=== PATIENT | male | born 1950 | race Caucasian/White ===

== ENCOUNTER 2016-10-21 10:36 | Inpatient (IN) | payer MEDICARE, OTHER ==
[~2016-10-21] VITALS: Ht 188 cm; Wt 151.9 kg
[2016-10-21 10:43] VITALS: BP 183/81; PULSE 88; RESP 16; TEMP 99.5; O2SAT 94
[2016-10-21] MEDS ORDERED: LISI10TA3 PO (11:11)
[2016-10-21] MEDS ORDERED: LOVA20TA PO (11:11)
[2016-10-21] MEDS ORDERED: OCUVTAB PO (11:11)
[2016-10-21] MEDS ORDERED: MUPI2%T TOPICAL (11:11)
[2016-10-21] MEDS ORDERED: METF500T PO (11:11)
[2016-10-21] MEDS ORDERED: CLIN1CAP6 PO (11:11)
[2016-10-21] MEDS ORDERED: ASPI81CH37 CHEW (11:11)
[2016-10-21] MEDS ORDERED: NATE120T PO (11:11)
[2016-10-21] MEDS ORDERED: MULT-65 PO (11:11)
--- NOTE | 2016-10-21 11:35 | PD ---
HPI Chief Complaint: Skin Problem Time Seen by Provider: 11:09 Travel History International Travel<30 days: No Contact w/Intl Traveler<30days: No Traveled to known affect area: No History of Present Illness HPI This is a 66 year old male who presents to the emergency department with a foot ulcer that he thinks has been present between 2-3 weeks. He doesn't feel anything because he has diabetic neuropathy but is concerned because his foot has gotten more swollen and red. He went to an urgent care four days ago and was started on clindamycin and mupirocin ointment which he has been taking. He denies fevers or chills. He doesn't have a fluid designer and doesn't check his blood sugar. PFSH Past Medical History Hx Anticoagulant Therapy: Yes (ASPIRIN 81 MG DAILY) Diabetes: Yes (Type 2) Patient Takes Glucophage: Yes Hypertension: Yes Tetanus Vaccination: > 5 Years Influenza Vaccination: No Past Surgical History Surgical History: No Previous Surgery Social History Alcohol Use: Yes (Rarely) Tobacco Use: No Substance Use: No Allergies-Medications (Allergen,Severity, Reaction): Coded Allergies: No Known Allergies (Unverified , 10/21/16) Reported Meds & Prescriptions Reported Meds & Active Scripts Active Reported Clindamycin (Clindamycin HCl) 300 Mg Cap 300 Mg PO TID Bactroban Topical (Mupirocin) 22 Gm Cream 1 Applic TOPICAL TID Metformin (Metformin HCl) 500 Mg Tab 500 Mg PO BIDPC With meals Lovastatin 20 Mg Tab 20 Mg PO DAILY Nateglinide 120 Mg Tab 120 Mg PO BID Lisinopril 10 Mg Tab 10 Mg PO DAILY Ocuvite (Multiple Vitamins W/ Minerals) 1 Tab 1 Tab PO DAILY Multi-Vitamin Daily (Multiple Vitamin) 1 Tab Tab 1 Tab PO DAILY Aspirin Low Dose (Aspirin) 81 Mg Chew 81 Mg CHEW DAILY Review of Systems Except as stated in HPI: all other systems reviewed are Neg Physical Exam Narrative GENERAL:Well appearing, no acute distress SKIN: 4 cm ulcer on the lateral aspect of the plantar surface of the right foot with necrotic tissue and some boggy areas suggestive of an underlying fluid collection. HEAD: Atraumatic. Normocephalic. EYES: Pupils equal and round. No injection or drainage. ENT: Moist mucous membranes NECK: Trachea midline. CARDIOVASCULAR: Regular rate and rhythm. No murmur appreciated. RESPIRATORY: Clear to auscultation. Breath sounds equal bilaterally. GASTROINTESTINAL: Abdomen soft, non-tender, nondistended. MUSCULOSKELETAL: No obvious deformities. NEUROLOGICAL: Awake and alert. No obvious cranial nerve deficits. Moving all extremities. PSYCHIATRIC: Appropriate mood and affect; insight and judgment normal. Data Data Last Documented VS Vital Signs Date Time Temp Pulse Resp B/P (MAP) Pulse Ox O2 Delivery O2 Flow Rate FiO2 10/21/16 12:15 77 16 138/62 (87) 94 Room Air 10/21/16 10:43 99.5 Orders Orders Complete Blood Count With Diff (10/21/16 11:17) Comprehensive Metabolic Panel (10/21/16 11:17) Westergren Sedimentation Rate (10/21/16 11:17) C-Reactive Protein (Crp) (10/21/16 11:17) Foot, Complete ([id number]) (10/21/16 ) Labs Laboratory Tests Test 10/21/16 11:45 White Blood Count 14.3 TH/MM3 Red Blood Count 4.30 MIL/MM3 Hemoglobin 12.7 GM/DL Hematocrit 38.5 % Mean Corpuscular Volume 89.4 FL Mean Corpuscular Hemoglobin 29.5 PG Mean Corpuscular Hemoglobin Concent 33.0 % Red Cell Distribution Width 13.0 % Platelet Count 329 TH/MM3 Mean Platelet Volume 7.3 FL Neutrophils (%) (Auto) 82.9 % Lymphocytes (%) (Auto) 8.9 % Monocytes (%) (Auto) 5.1 % Eosinophils (%) (Auto) 0.9 % Basophils (%) (Auto) 2.2 % Neutrophils # (Auto) 11.9 TH/MM3 Lymphocytes # (Auto) 1.3 TH/MM3 Monocytes # (Auto) 0.7 TH/MM3 Eosinophils # (Auto) 0.1 TH/MM3 Basophils # (Auto) 0.3 TH/MM3 CBC Comment DIFF FINAL Differential Comment Erythrocyte Sedimentation Rate 81 mm/hr Blood Urea Nitrogen 24 MG/DL Creatinine 1.30 MG/DL Random Glucose 112 MG/DL Total Protein 7.5 GM/DL Albumin 2.7 GM/DL Calcium Level 8.4 MG/DL Alkaline Phosphatase 87 U/L Aspartate Amino Transf (AST/SGOT) 12 U/L Alanine Aminotransferase (ALT/SGPT) 20 U/L Total Bilirubin 1.6 MG/DL Sodium Level 139 MEQ/L Potassium Level 4.0 MEQ/L Chloride Level 105 MEQ/L Carbon Dioxide Level 25.5 MEQ/L Anion Gap 9 MEQ/L Estimat Glomerular Filtration Rate 55 ML/MIN MDM Medical Decision Making Medical Screen Exam Complete: Yes Emergency Medical Condition: Yes Interpretation(s) temperature 99.5 leukocytosis 83% neutrophils sed rate 81 Last 24 hours Impressions Foot X-Ray 10/21/16 0000 Signed Impressions: Service Date/Time: Friday, October 21, 2016 11:27 - CONCLUSION: 1. Soft tissue swelling. 2. Degenerative changes. No acute fracture or cortical irregularity to suggest osteomyelitis Shawn Pariknson MD Differential Diagnosis Diabetic foot ulcer, sepsis, cellulitis, osteomyelitis Narrative Course This is a 66-year-old male who presents to the emergency department with redness and swelling of his right foot associated with a diabetic foot ulcer. On exam he has a large ulcer that is boggy suggestive of an underlying fluid collection and overlying necrosis. Patient requires podiatry evaluation and he' ll be given IV antibiotics for wound infection versus underlying osteomyelitis. Diagnosis Primary Impression: Diabetic foot infection Admitting Information Admitting Physician Requests: Admit Gabby Hoang MD Oct 21, 2016 11:35
[2016-10-21 11:59] LABS: AUTOMATED NEUTROPHIL # 11.9 TH/MM3 (1.8-7.7); BASOPHIL # 0.3 TH/MM3 (0-0.2); BASOPHIL % 2.2 % (0.0-2.0); EOSINOPHIL # 0.1 TH/MM3 (0-0.4); EOSINOPHIL % 0.9 % (0.0-4.0); HEMATOCRIT 38.5 % (39.0-51.0); LYMPH % 8.9 % (9.0-44.0); LYMPHOCYTE # 1.3 TH/MM3 (1.0-4.8); MEAN CELL VOLUME 89.4 FL (80.0-100.0); MEAN CORPUSCULAR HEMOGLOBIN 29.5 PG (27.0-34.0); MONO % 5.1 % (0.0-8.0); NEUT % 82.9 % (16.0-70.0); PLATELET COUNT 329 TH/MM3 (150-450); WHITE BLOOD COUNT 14.3 TH/MM3 (4.0-11.0)
[2016-10-21 12:03] LABS: CHLORIDE 105 MEQ/L (98-107); SODIUM (NA) 139 MEQ/L (136-145)
--- NOTE | 2016-10-21 12:04 | RADRPT ---
EXAM DATE/TIME: 10/21/2016 11:27 [facility] COMPARISON: No previous studies available for comparison. INDICATIONS : Right foot redness and swelling with wounds. MEDICAL HISTORY : Diabetes mellitus type II. SURGICAL HISTORY : None. ENCOUNTER: Initial ACUITY: 1 week PAIN SCORE: 8/10 LOCATION: Right plantar foot FINDINGS: Three view examination of the right foot demonstrates mild, diffuse soft tissue swelling without disl ocation, or fracture. A prominent accessory ossification adjacent to the cuboid and a small accessory ossification adjacent to the lateral malleolus. Dorsal spurring in the region of the cuneiform. CONCLUSION: 1. Soft tissue swelling. 2. Degenerative changes. No acute fracture or cortical irregularity to suggest osteomyelitis Shawn Parkinson MD on October 21, 2016 at 11:58 Board Certified Radiologist. This report was verified electronically.
[2016-10-21 12:06] LABS: HEMO FLAGS DIFF FINAL
[2016-10-21 12:07] LABS: ANION GAP 9 MEQ/L (5-15); BICARBONATE 25.5 MEQ/L (21.0-32.0); BLOOD UREA NITROGEN 24 MG/DL (7-18)
[2016-10-21 12:10] LABS: ALT (GPT) 20 U/L (12-78); AST (GOT) 12 U/L (15-37); GLOMERULAR FILTRATION RATE 55 ML/MIN (>89)
[2016-10-21 12:11] LABS: TOTAL BILIRUBIN ADULT 1.6 MG/DL (0.2-1.0)
[2016-10-21 12:13] LABS: ALKALINE PHOSPHATASE 87 U/L (45-117)
[2016-10-21 12:15] VITALS: BP 138/62; PULSE 77; RESP 16; O2SAT 94
[2016-10-21] MEDS ORDERED: Vancomycin Consult Pharmacy 1 EA OTHER SCH (12:45)
[2016-10-21] MEDS ORDERED: SENNOSIDES 8.6 MG TAB PO PRN (12:45)
[2016-10-21] MEDS ORDERED: ONDANSETRON HCL 4 MG/2 ML VIAL IVP PRN (12:45)
[2016-10-21] MEDS ORDERED: MAGNESIUM HYDROXIDE SUSP 30 ML CUP PO PRN (12:45)
[2016-10-21] MEDS ORDERED: NALOXONE HCL 0.4 MG/ML AMP IV PRN (12:45)
[2016-10-21] MEDS ORDERED: GLUCAGON 1 MG/ML VIAL OTHER PRN (12:45)
[2016-10-21] MEDS ORDERED: SODIUM CHLORIDE 0.9% FLUSH 10 ML FLUSH IV FLUSH PRN (12:45)
[2016-10-21] MEDS ORDERED: BISACODYL 10 MG SUPP RECTAL PRN (12:45)
[2016-10-21] MEDS ORDERED: VANCOMYCIN INJ 1,750 MG in SODIUM CHLORID 0.9% 500 ML INJ 500 ML IV ONE (12:45)
[2016-10-21] MEDS ORDERED: DEXTROSE 50% IN WATER 50 ML VIAL(D50) IV PRN (12:45)
[2016-10-21] MEDS ORDERED: LACTULOSE SYRUP 20 GM/30 ML CUP PO PRN (12:45)
--- NOTE | 2016-10-21 14:59 | HHI.HP ---
[facility] Service [facility] Primary Care Physician Golden Drake MD Admission Diagnosis diabetic foot infection Diagnoses: Travel History International Travel<30 Days: No Contact w/Intl Traveler <30 Da: No Traveled to Known Affected Are: No History of Present Illness Mr. Mahmood is a 66-year-old male. He reports after mowing his yard in the past week he noticed he developed a right lateral foot wound. He says he never noticed any blood but he did notice discharge. He became concerned Wednesday when the foot developed redness and he went to an outpatient clinic. They gave him a topical antibiotic ointment as well as clindamycin. Despite these treatments his foot worsened this morning and he visited another urgent care and at that time they recommended he come to the hospital. She denies any fevers, chills, or odor. She does not regularly follow with an outpatient civilian technician but he does have diabetic neuropathy. He has had problems with ulcerations of his lower distal extremities in the past. A white blood cell count is present. Sepsis criteria are not present. X-ray shows soft tissue swelling without evidence of osteo-myelitis. Review of Systems Constitutional: DENIES: Diaphoretic episodes, Fatigue, Fever, Chills, Change in appetite, Night Sweats Endocrine: DENIES: Heat/cold intolerance Eyes: DENIES: Blurred vision, Diplopia, Eye pain Ears, nose, mouth, throat: DENIES: Tinnitus, Hearing loss, Vertigo Respiratory: DENIES: Apneas, Cough, Snoring Cardiovascular: DENIES: Chest pain, Palpitations, Syncope Gastrointestinal: DENIES: Abdominal pain, Black stools, Bloody stools Musculoskeletal: DENIES: Joint pain, Muscle aches, Stiffness Integumentary: COMPLAINS OF: Abnormal pigmentation Hematologic/lymphatic: DENIES: Bruising Immunologic/allergic: DENIES: Eczema Neurologic: DENIES: Abnormal gait Psychiatric: DENIES: Anxiety, Confusion, Mood changes Past Family Social History Past Medical History Diabetes mellitus type 2 Diabetic neuropathy Hypertension Past Surgical History None reported by the patient Reported Medications Reported Meds & Active Scripts Active Reported Clindamycin (Clindamycin HCl) 300 Mg Cap 300 Mg PO TID Bactroban Topical (Mupirocin) 22 Gm Cream 1 Applic TOPICAL TID Metformin (Metformin HCl) 500 Mg Tab 500 Mg PO BIDPC With meals Lovastatin 20 Mg Tab 20 Mg PO DAILY Nateglinide 120 Mg Tab 120 Mg PO BID Lisinopril 10 Mg Tab 10 Mg PO DAILY Ocuvite (Multiple Vitamins W/ Minerals) 1 Tab 1 Tab PO DAILY Multi-Vitamin Daily (Multiple Vitamin) 1 Tab Tab 1 Tab PO DAILY Aspirin Low Dose (Aspirin) 81 Mg Chew 81 Mg CHEW DAILY Allergies: Coded Allergies: No Known Allergies (Unverified , 10/21/16) Active Ordered Medications Administered Medications Medications (Trade) Dose Ordered Sig/Saeed Route PRN Reason Start Time Stop Time Status Last Admin Dose Admin Vancomycin HCl 1750 mg/Sodium Chloride 517.5 ml @ 258.75 mls/ hr ONCE ONCE IV 10/21/16 12:45 10/21/16 14:44 10/21/16 13:38 Family History COPD in mother Rheumatoid arthritis in father Social History No tobacco use Occasional Alcohol use No drug abuse Physical Exam Vital Signs Vital Signs Date Time Temp Pulse Resp B/P (MAP) Pulse Ox O2 Delivery O2 Flow Rate FiO2 10/21/16 12:15 77 16 138/62 (87) 94 Room Air 10/21/16 10:43 99.5 88 16 183/81 (115) 94 Physical Exam GENERAL: NAD, A&Ox3 HEAD: Normocephalic. NECK: Supple, trachea midline. No lymphadenopathy. EYES: No scleral icterus. No injection or drainage. CARDIOVASCULAR: Regular rate and rhythm without murmurs, gallops, or rubs. RESPIRATORY: Breath sounds equal bilaterally. No accessory muscle use. GASTROINTESTINAL: Abdomen soft, non-tender, nondistended. MUSCULOSKELETAL: No cyanosis, or edema. SKIN: Warm and dry. Plantar surface of right lateral foot has a 1 cm x 4 cm dry wound. Depth cannot be determined, but visible aspect is superficial. There appears to be a peripheral collapsed blister, dried. Dorsal surface of foot has diffuse erythema and induration. NEURO: No focal neurological deficitis. Laboratory Laboratory Tests Test 10/21/16 11:45 10/21/16 13:10 White Blood Count 14.3 Red Blood Count 4.30 Hemoglobin 12.7 Hematocrit 38.5 Mean Corpuscular Volume 89.4 Mean Corpuscular Hemoglobin 29.5 Mean Corpuscular Hemoglobin Concent 33.0 Red Cell Distribution Width 13.0 Platelet Count 329 Mean Platelet Volume 7.3 Neutrophils (%) (Auto) 82.9 Lymphocytes (%) (Auto) 8.9 Monocytes (%) (Auto) 5.1 Eosinophils (%) (Auto) 0.9 Basophils (%) (Auto) 2.2 Neutrophils # (Auto) 11.9 Lymphocytes # (Auto) 1.3 Monocytes # (Auto) 0.7 Eosinophils # (Auto) 0.1 Basophils # (Auto) 0.3 CBC Comment DIFF FINAL Differential Comment Erythrocyte Sedimentation Rate 81 Blood Urea Nitrogen 24 Creatinine 1.30 Random Glucose 112 Total Protein 7.5 Albumin 2.7 Calcium Level 8.4 Alkaline Phosphatase 87 Aspartate Amino Transf (AST/SGOT) 12 Alanine Aminotransferase (ALT/SGPT) 20 Total Bilirubin 1.6 Sodium Level 139 Potassium Level 4.0 Chloride Level 105 Carbon Dioxide Level 25.5 Anion Gap 9 Estimat Glomerular Filtration Rate 55 C-Reactive Protein 17.00 Lactic Acid Level 1.0 Date/Time Source Procedure Growth Status 10/21/16 13:10 Blood Peripheral Aerobic Blood Culture Pending Received 10/21/16 13:10 Blood Peripheral Anaerobic Blood Culture Pending Received 10/21/16 13:40 Abscess Foot Gram Stain Pending Received 10/21/16 13:40 Abscess Foot Wound Culture Pending Received Result Diagram: 10/21/16 1145 10/21/16 1145 Imaging Last Impressions Foot X-Ray 10/21/16 0000 Signed Impressions: Service Date/Time: Friday, October 21, 2016 11:27 - CONCLUSION: 1. Soft tissue swelling. 2. Degenerative changes. No acute fracture or cortical irregularity to suggest osteomyelitis MD Mehreen Stone VTE Risk Assessment Caprini VTE Risk Assessment: Mod/High Risk (score >= 2) Caprini Risk Assessment Model Point Value = 1 Point Value = 2 Point Value = 3 Point Value = 5 Age 41-60 Minor surgery BMI > 25 kg/m2 Swollen legs Varicose veins or History of unexplained or recurrent spontaneous Oral contraceptives or hormone replacement Sepsis (< 1 month) Serious lung disease, including pneumonia (< 1 month) Abnormal pulmonary function Acute myocardial infarction Congestive heart failure (< 1 month) History of inflammatory bowel disease Medical patient at bed rest Age 61-74 Arthroscopic surgery Major open surgery (> 45 min) Laparoscopic surgery (> 45 min) Malignancy Confined to bed (> 72 hours) Immobilizing plaster cast Central venous access Age >= 75 History of VTE Family history of VTE Factor V Leiden Prothrombin [id number] Lupus anticoagulant Anticardiolipin antibodies Elevated serum homocysteine Heparin-induced thrombocytopenia Other congenital or acquired thrombophilia Stroke (< 1 month) Elective arthroplasty Hip, pelvis, or leg fracture Acute spinal cord injury (< 1 month) Prophylaxis Regimen Total Risk Factor Score Risk Level Prophylaxis Regimen 0-1 Low Early ambulation 2 Moderate Order ONE of the following: *Sequential Compression Device (SCD) *Heparin 5000 units SQ BID 3-4 Higher Order ONE of the following medications: *Heparin 5000 units SQ TID *Enoxaparin/Lovenox 40 mg SQ daily (WT < 150 kg, CrCl > 30 mL/min) *Enoxaparin/Lovenox 30 mg SQ daily (WT < 150 kg, CrCl > 10-29 mL/min) *Enoxaparin/Lovenox 30 mg SQ BID (WT < 150 kg, CrCl > 30 mL/min) AND/OR *Sequential Compression Device (SCD) 5 or more Highest Order ONE of the following medications: *Heparin 5000 units SQ TID (Preferred with Epidurals) *Enoxaparin/Lovenox 40 mg SQ daily (WT < 150 kg, CrCl > 30 mL/min) *Enoxaparin/Lovenox 30 mg SQ daily (WT < 150 kg, CrCl > 10-29 mL/min) *Enoxaparin/Lovenox 30 mg SQ BID (WT < 150 kg, CrCl > 30 mL/min) AND *Sequential Compression Device (SCD) Assessment and Plan Problem List: (1) Cellulitis ICD Code: L03.90 - Cellulitis, unspecified (2) Diabetic neuropathy ICD Code: E11.40 - Type 2 diabetes mellitus with diabetic neuropathy, unspecified (3) HTN (hypertension) ICD Code: I10 - Essential (primary) hypertension (4) Diabetes type 2, controlled ICD Code: E11.9 - Type 2 diabetes mellitus without complications (5) Diabetic foot infection ICD Code: E11.69 - Type 2 diabetes mellitus with other specified complication; L08.9 - Local infection of the skin and subcutaneous tissue, unspecified Status: Acute Assessment and Plan Assessment and Plan 66 year old male, presenting with worsening cellulitis or the right foot, on antibiotics. Right Foot Cellulitis Right Foot Wound (lateral plantar surface) Vancomycin Zosyn Probiotic Podiatry consult MRI of foot to screen for abscess or osteomyelitis DM2 Diabetic Neuropathy Good control at baseline per patient Follow blood sugars Insulin Sliding Scale Diabetic Diet Diabetic Neuropathy Contributory Follow clinically Interval outpatient podiatry visits recommended HTN Continue baseline treatments Follow BP Adjust if needed DVT Prophylaxis Lovenox Physician Certification 2 Midnight Certification Type: Admission for Inpatient Services Order for Inpatient Services The services are ordered in accordance with Medicare regulations or non- Medicare payer requirements, as applicable. In the case of services not specified as inpatient-only, they are appropriately provided as inpatient services in accordance with the 2-midnight benchmark. Estimated LOS (days): 2 days is the estimated time the patient will need to remain in the hospital, assuming treatment plan goals are met and no additional complications. Post-Hospital Plan: Home Manjit Herrera MD Oct 21, 2016 14:59
[2016-10-21 16:00] VITALS: BP 161/81; PULSE 77; RESP 19; TEMP 97.2; O2SAT 99
[2016-10-21] MEDS: INSULIN ASPART SUPPLEMENTAL SCALE SQ SCH ×2 (16:00→20:31)
[2016-10-21] MEDS ORDERED: GADODIAMIDE PF 287 MG/ML 10 ML VIAL (for RAD MRI) IV PUSH ONE (16:16)
--- NOTE | 2016-10-21 17:06 | RADRPT ---
EXAM DATE/TIME: 10/21/2016 15:51 [facility] COMPARISON: FOOT RIGHT COMPLETE ([id number]), October 21, 2016, 11:27. INDICATIONS : Abscess. Wound lateral rt foot near 5th digit. CONTRAST: 30 cc Omniscan (gadodiamide) IV MEDICAL HISTORY : Hypertension. Diabetes mellitus type 2. SURGICAL HISTORY : Tonsillectomy. Inguinal hernia repair. ENCOUNTER: Initial ACUITY: 4-6 days PAIN SCORE: 3/10 LOCATION: Right Foot TECHNIQUE: Multiplanar, multisequence MRI examination was performed without contrast and after the intravenous a dministration of gadolinium. FINDINGS: There is soft tissue swelling about the 5th digit extending to the distal 5th metatarsus and into the web space between the 4th and 5th digits. On T2 weighted images, there is only mild T2 prolongation . On the postcontrast images, there is absent enhancement in the area of soft tissue thickening sugg esting that this area is not vascularized. There is an approximate zone of transition between the en hancing and nonenhancing soft tissues. There is also non-enhancement in the web space between the 4t h and 5th digits and about the plantar aspect of the base of the 4th digit. No focal fluid collectio ns seen. There is T2 prolongation in the marrow of the distal 5th metatarsus. There is mild soft tissue thickening about the dorsal aspect of the midfoot with diffuse mild enhance ment suggesting cellulitis. CONCLUSION: Abnormal appearance to the 5th digit and surrounding soft tissues with absence of contrast enhancemen t with sharp demarcation suggesting that this there is devascularized. Robby Ceron MD on October 21, 2016 at 16:51 Board Certified Radiologist. This report was verified electronically.
[2016-10-21] MEDS: PIPERACIL-TAZO 3.375 GM PREMIX 50 ML IV SCH ×2 (17:45→22:39)
[2016-10-21] MEDS: ENOXAPARIN SODIUM 40 MG/0.4 ML SYRINGE SQ SCH ×2 (17:46→17:49)
[2016-10-21 20:00] VITALS: BP 151/83; PULSE 74; RESP 20; TEMP 99.4; O2SAT 97
--- NOTE | 2016-10-21 20:43 | MB ---
cc: YESSENIA EWING DPM DATE OF CONSULTATION 10/21/16 REASON FOR CONSULTATION Right diabetic foot ulcer infection. HISTORY OF PRESENT ILLNESS This is a 66-year-old male who approximately 1 week ago developed a wound on his right foot. He slide across a lj and hit his foot on concrete. He knows that there was no bleeding. He developed increased redness and some drainage and presented to an outpatient clinic. There is noted to be increase of signs of infection. Recommended admitting to the hospital. Currently, the patient is seen bedside. He has admitted since being in the hospital he has had significant reduction and discoloration of the foot. He normally is quite compliant and he tries his best to control his blood sugars and not walk barefoot. He is aware that he does have neuropathy and does not follow with a medical administrator routinely. PAST MEDICAL HISTORY Diabetes type 2, diabetic neuropathy, hypertension. No surgical note history in the chart. MEDICATIONS Reported inpatient medications reviewed. Outpatient medications 1. Metformin. 2. Bactroban. 3. Clindamycin. 4. Lisinopril. 5. Lovastatin. Inpatient medications reviewed. He is receiving antibiotics, Vancomycin and Zosyn. ALLERGIES None listed. PHYSICAL EXAMINATION VITAL SIGNS: Temperature 97.2, pulse rate 77, respiratory rate 19, blood pressure 161/87. He is satting 94% on room air. GENERAL: This is an alert and oriented gentleman seen bedside exhibiting nonlabored respirations. He is verbal, appropriate. DIRECTED EXAMINATION: Bilateral lower extremities examined. Right lower extremity there is noted to be a necrotic ulcer at the plantar aspect of the fifth MPJ. There is redness. There is serous type drainage. Upon debridement of the area there is noted to be a full-thickness like hematoma presentation with minimal bleeding. There is a mild odor. No obvious gas within the tissue. There is noted to be a collapsed blister type formation circumferentially of the patient's fifth digit with early signs of ischemia. The toe appears to be warm but it is more purple reddish in hue. The patient does have hammertoe digits 2, 3, 4, and 5. Pedal pulses are palpable. Sensation decreased to light touch. There is noted to be redness that extends to the dorsum of the foot. There is no tracking along the plantar arch. LABORATORY FINDINGS White blood cells 14.3, hemoglobin/hematocrit 12, 38, platelet count 329, ESR 81. Chem-7, sodium is 139, potassium 4.0, chloride 105, CO2 25.5, BUN is 24. IMAGING STUDIES X-ray appears to correlate more with arthritis of the midfoot with no mention of bony erosive process of the level of the fourth, fifth metatarsal heads. I reviewed the MRIs with the on-call radiologist and there appears to be evidence of a possible ischemic digit fifth with enhancement of the forefoot metatarsal heads that could correlate with bone infectio. Bone scan was recommended for increased specificity for bone uptake and abnormality. ASSESSMENT/PLAN Right diabetic foot ulcer cellulitis, possible early gangrene of the fifth digit. Bedside debridement performed after Betadine prep. There is minimal bleeding. A Betadine wet-to-dry bandage was applied. I explained to the patient the possibility of fifth digit amputation with metatarsal head resection if the bone scan comes back positive. At this time the patient should continue IV antibiotics. Dr. Dalal will assume care within the next day or two and likely be the surgeon of record if surgery needs to be performed. MARY Rosas /5:16 PM /8:27 PM
[2016-10-21] MEDS: DOCUSATE SODIUM 50 MG/SENNA 8.6 MG TAB PO SCH (21:00)
[2016-10-21] MEDS: SODIUM CHLORIDE 0.9% FLUSH 10 ML FLUSH IV FLUSH SCH (22:39)
[2016-10-21] MEDS: VANCOMYCIN INJ 2,500 MG in SODIUM CHLORID 0.9% 500 ML INJ 500 ML IV SCH (23:48)
[2016-10-22] VITALS: BP 148/73; PULSE 71; RESP 20; TEMP 99.4; O2SAT 93
[2016-10-22] MEDS: PIPERACIL-TAZO 3.375 GM PREMIX 50 ML IV SCH ×4 (04:09→23:20)
[2016-10-22 06:06] LABS: AUTOMATED NEUTROPHIL # 10.2 TH/MM3 (1.8-7.7); BASOPHIL # 0.1 TH/MM3 (0-0.2); BASOPHIL % 0.6 % (0.0-2.0); EOSINOPHIL # 0.4 TH/MM3 (0-0.4); EOSINOPHIL % 3.1 % (0.0-4.0); HEMO FLAGS DIFF FINAL; LYMPH % 12.1 % (9.0-44.0); LYMPHOCYTE # 1.6 TH/MM3 (1.0-4.8); MEAN CELL VOLUME 90.9 FL (80.0-100.0); MEAN CORPUSCULAR HEMOGLOBIN 30.3 PG (27.0-34.0); MEAN CORPUSCULAR HGB CONC 33.4 % (32.0-36.0); MONO % 6.5 % (0.0-8.0); NEUT % 77.7 % (16.0-70.0); PLATELET COUNT 280 TH/MM3 (150-450); RED BLOOD COUNT 3.85 MIL/MM3 (4.50-5.90); RED CELL DISTRIBUTION WIDTH 13.1 % (11.6-17.2); WHITE BLOOD COUNT 13.2 TH/MM3 (4.0-11.0)
[2016-10-22 06:19] LABS: BICARBONATE 26.1 MEQ/L (21.0-32.0)
[2016-10-22] MEDS: INSULIN ASPART SUPPLEMENTAL SCALE SQ SCH ×4 (06:27→21:00)
[2016-10-22 08:00] VITALS: BP 176/86; PULSE 81; RESP 20; TEMP 98.2; O2SAT 95
[2016-10-22] MEDS: SODIUM CHLORIDE 0.9% FLUSH 10 ML FLUSH IV FLUSH SCH ×2 (08:39→21:00)
[2016-10-22] MEDS: DOCUSATE SODIUM 50 MG/SENNA 8.6 MG TAB PO SCH ×2 (08:39→21:00)
[2016-10-22] MEDS: LISINOPRIL 10 MG TAB PO SCH (10:55)
[2016-10-22] MEDS: MULTIVITAMIN TAB PO SCH (10:56)
[2016-10-22] MEDS: PRAVASTATIN SOD 20 MG TAB PO SCH (10:56)
--- NOTE | 2016-10-22 10:59 | HHI.PR ---
Subjective Remarks Patient is seen at 10 AM. He is a little down about needing to have surgery with possible amputation. He denies pain or sensation in the foot. Afebrile. Objective Vitals Vital Signs Date Time Temp Pulse Resp B/P (MAP) Pulse Ox O2 Delivery O2 Flow Rate FiO2 10/22/16 08:00 98.2 81 20 176/86 (116) 95 10/22/16 00:00 99.4 71 20 148/73 (98) 93 10/21/16 20:00 99.4 74 20 151/83 (105) 97 10/21/16 16:00 97.2 77 19 161/81 (107) 99 10/21/16 14:45 10/21/16 12:15 77 16 138/62 (87) 94 Room Air I/O 10/21/16 10/21/16 10/21/16 10/22/16 10/22/16 10/22/16 06:59 14:59 22:59 06:59 14:59 22:59 Intake Total 240 ml 1680 ml Balance 240 ml 1680 ml Intake Oral 240 ml 480 ml IV Total 1200 ml # Voids 1 # Bowel Movements 0 Result Diagram: 10/22/160 10/22/16 0440 Objective Remarks GENERAL: Well-nourished, well-developed patient. SKIN: Warm and dry. HEAD: Normocephalic. EYES: No scleral icterus. No injection or drainage. NECK: Supple, trachea midline. No JVD or lymphadenopathy. CARDIOVASCULAR: Regular rate and rhythm without murmurs, gallops, or rubs. RESPIRATORY: Breath sounds equal bilaterally. No accessory muscle use. GASTROINTESTINAL: Abdomen soft, non-tender, nondistended. EXTREMITIES: Right foot edematous to the mid calves with dull erythema over the anterior lateral aspect of the foot. He has a ulceration along the lateral foot overlying the fifth metatarsal, no drainage or malodor. Dorsalis pedis pulses present but diminished and not foot it is strong in the left foot. NEUROLOGICAL: Awake, alert, and oriented x 3. Non-focal. A/P Problem List: (1) Diabetic foot infection ICD Code: E11.69 - Type 2 diabetes mellitus with other specified complication; L08.9 - Local infection of the skin and subcutaneous tissue, unspecified Status: Acute (2) Cellulitis ICD Code: L03.90 - Cellulitis, unspecified (3) Diabetic neuropathy ICD Code: E11.40 - Type 2 diabetes mellitus with diabetic neuropathy, unspecified (4) HTN (hypertension) ICD Code: I10 - Essential (primary) hypertension (5) Diabetes type 2, controlled ICD Code: E11.9 - Type 2 diabetes mellitus without complications (6) Osteomyelitis of right foot ICD Code: M86.9 - Osteomyelitis, unspecified Assessment and Plan 66 year old male with type 2 diabetes and severe peripheral neuropathy, presenting with worsening cellulitis or the right foot, on antibiotics. Right Foot Cellulitis Right Foot diabetic foot infection (overlying fifth metatarsal), possible osteomyelitis of the fifth metatarsal as per MRI Vancomycin Zosyn Probiotic Podiatry consult - tentatively on or schedule tomorrow Discussed with Dr. Dalal, will proceed with CTA with runoff to evaluate flow in the right leg as he has diminished dorsalis pedis pulse DM2 Diabetic Neuropathy Good control at baseline per patient Follow blood sugars Insulin Sliding Scale Diabetic Diet Check A1c Diabetic Neuropathy Contributory Follow clinically Interval outpatient podiatry visits recommended HTN Continue baseline treatments Follow BP Adjust if needed DVT Prophylaxis Anna Bill MD Oct 22, 2016 10:59
[2016-10-22] MEDS ORDERED: IOHEXOL 350 MG/ML 10 ML VIAL (for RAD DIAG) IVCONTRAST ONE (11:36)
[2016-10-22 12:00] VITALS: BP 160/83; PULSE 77; RESP 19; TEMP 97.8; O2SAT 97
--- NOTE | 2016-10-22 12:58 | RADRPT ---
EXAM DATE/TIME: 10/22/2016 11:06 [facility] COMPARISON: No previous studies available for comparison. INDICATIONS : Right foot wound near 5th digit. Evaluate for obstruction. IV CONTRAST: 100 cc Omnipaque 350 (iohexol) IV RADIATION DOSE: 14.01 CTDIvol (mGy) MEDICAL HISTORY : Diabetes mellitus type 2. Hypertension. Cardiovascular disease SURGICAL HISTORY : None. ENCOUNTER: Initial ACUITY: 1 week PAIN SCALE: 7/10 LOCATION: Right foot TECHNIQUE: Volumetric scanning was performed using a multi-row detector CT scanner. The data was post processed with a variety of visualization algorithms including full volume maximum intensity projection, multi -planar sliding thin slab reformation, curved planar reformation, and surface rendering techniques. Using automated exposure control and adjustment of the mA and/or kV according to patient size, radiat ion dose was kept as low as reasonably achievable to obtain optimal diagnostic quality images. DICO M format image data is available electronically for review and comparison. FINDINGS: The abdominal aorta is notable for patchy atherosclerotic irregularity and intimal calcification. No significant aortic stenosis. The visceral vessels appear patent. No significant iliac inflow stenosis is suspected. The hypogastrics are patent bilaterally. The common femoral arteries are relatively he althy in appearance bilaterally and the profundas are patent bilaterally. Superficial femoral arterie s are mildly diseased with eccentric atherosclerotic changes most significantly in the adductor hiatu s region on both sides, potentially slightly worse on the left than the right. Popliteal arteries are similarly notable for mild disease. The status of the tibials is very poorly determined secondary to technical factors, particularly on the right side with dense calcification present and poor contrast density. The tibials appear intact to the foot on the left side with some degree of proximal trifurc ation vessel disease noted. Elsewhere on the exam, note is made of a large gallstone. CONCLUSION: No significant aortoiliac inflow disease or large vessel runoff disease. Distal and small vessel dise ase not excludable, Faheem Lane MD on October 22, 2016 at 12:40 Board Certified Radiologist. This report was verified electronically.
[2016-10-22 15:53] LABS: HEMOGLOBIN A1a 1.3 %; HEMOGLOBIN Ao 83.7 %; HEMOGLOBIN P3 4.4 %
[2016-10-22 16:00] VITALS: BP 154/75; PULSE 77; RESP 19; TEMP 98; O2SAT 99
[2016-10-22] MEDS: VANCOMYCIN INJ 2,500 MG in SODIUM CHLORID 0.9% 500 ML INJ 500 ML IV SCH (18:42)
[2016-10-22 20:00] VITALS: BP 173/70; PULSE 91; RESP 18; TEMP 96.5; O2SAT 96
--- NOTE | 2016-10-22 22:24 | PD.POD ---
Subjective Podiatric Problems RLE ulcer. Seen at bedside this pm while at PO. Resting comfortably. Pain scale used: 0-10 numeric scale Pain score: 0 Past Med/Surg/Social History Social History Smoking Status: Never Smoker Objective Vital Signs Vital Signs Date Time Temp Pulse Resp B/P (MAP) Pulse Ox O2 Delivery O2 Flow Rate FiO2 10/22/16 16:00 98.0 77 19 154/75 (101) 99 10/22/16 12:00 97.8 77 19 160/83 (108) 97 10/22/16 08:00 98.2 81 20 176/86 (116) 95 10/22/16 00:00 99.4 71 20 148/73 (98) 93 Coded Allergies: No Known Allergies (Unverified , 10/21/16) Medications and IVs Last Impressions Aorta w/Runoff CTA 10/22/16 0000 Signed Impressions: Service Date/Time: October 11:06 - CONCLUSION: No significant aortoiliac inflow disease or large vessel runoff disease. Distal and small vessel disease not excludable, Faheem Lane MD Foot X-Ray 10/21/16 0000 Signed Impressions: Service Date/Time: Friday, October 21, 2016 11:27 - CONCLUSION: 1. Soft tissue swelling. 2. Degenerative changes. No acute fracture or cortical irregularity to suggest osteomyelitis Shawn Parkinson MD Foot MRI 10/21/16 0000 Signed Impressions: Service Date/Time: Friday, October 21, 2016 15:51 - CONCLUSION: Abnormal appearance to the 5th digit and surrounding soft tissues with absence of contrast enhancement with sharp demarcation suggesting that this there is devascularized. Robby Ceron MD Laboratory Tests Test 10/21/16 11:45 10/21/16 13:10 10/22/16 04:40 Erythrocyte Sedimentation Rate 81 mm/hr Blood Urea Nitrogen 24 MG/DL 22 MG/DL Creatinine 1.30 MG/DL 1.10 MG/DL Random Glucose 112 MG/DL 107 MG/DL Total Protein 7.5 GM/DL Albumin 2.7 GM/DL Calcium Level 8.4 MG/DL 7.9 MG/DL Alkaline Phosphatase 87 U/L Aspartate Amino Transf (AST/SGOT) 12 U/L Alanine Aminotransferase (ALT/SGPT) 20 U/L Total Bilirubin 1.6 MG/DL Sodium Level 139 MEQ/L 139 MEQ/L Potassium Level 4.0 MEQ/L 4.0 MEQ/L Chloride Level 105 MEQ/L 105 MEQ/L Carbon Dioxide Level 25.5 MEQ/L 26.1 MEQ/L C-Reactive Protein 17.00 MG/DL Lactic Acid Level 1.0 mmol/L White Blood Count 13.2 TH/MM3 Red Blood Count 3.85 MIL/MM3 Hemoglobin 11.7 GM/DL Hematocrit 35.0 % Mean Corpuscular Volume 90.9 FL Mean Corpuscular Hemoglobin 30.3 PG Mean Corpuscular Hemoglobin Concent 33.4 % Red Cell Distribution Width 13.1 % Platelet Count 280 TH/MM3 Mean Platelet Volume 7.8 FL Neutrophils (%) (Auto) 77.7 % Lymphocytes (%) (Auto) 12.1 % Monocytes (%) (Auto) 6.5 % Eosinophils (%) (Auto) 3.1 % Basophils (%) (Auto) 0.6 % Neutrophils # (Auto) 10.2 TH/MM3 Lymphocytes # (Auto) 1.6 TH/MM3 Monocytes # (Auto) 0.9 TH/MM3 Eosinophils # (Auto) 0.4 TH/MM3 Basophils # (Auto) 0.1 TH/MM3 CBC Comment DIFF FINAL Differential Comment Anion Gap 8 MEQ/L Estimat Glomerular Filtration Rate 67 ML/MIN Hemoglobin A1c 6.3 % Exam-Podiatry Dermatological Exam Ulcers: Location/Measurements RLE + leg with swelling and redness, no streaking. Right sub 5th metatarsal with necrotic and ulcerated tissue. No exposed bone or tendon. DP and PT diminished. Assessment & Plan Diagnosis: (1) Diabetic foot infection ICD Codes: E11.69 - Type 2 diabetes mellitus with other specified complication ; L08.9 - Local infection of the skin and subcutaneous tissue, unspecified Status: Acute A/P CTA non diagnostic, discussed with Dr Lane. Recommended a Vascular Consult Plan for surgical intervention after Vascular Evaluation. RX; Betadine DSD , change daily. Pending Triple Phase Bone Scan. Will continue to f/u while inhouse. Kinjal Dalal DPM Oct 22, 2016 22:24
[2016-10-23] VITALS: BP 132/60; PULSE 89; RESP 18; TEMP 98.5; O2SAT 93
[2016-10-23] MEDS ORDERED: PIPERACILLIN/TAZ 3.375 GM VIAL 3.375 GM in SODIUM CHLORIDE 0.9% INJ 100 ML IV SCH (04:00)
[2016-10-23] MEDS: PIPERACIL-TAZO 3.375 GM PREMIX 50 ML IV SCH ×4 (05:22→22:00)
[2016-10-23] MEDS: INSULIN ASPART SUPPLEMENTAL SCALE SQ SCH ×4 (05:29→21:00)
[2016-10-23 08:00] VITALS: BP 157/72; PULSE 77; RESP 18; TEMP 98.2; O2SAT 93
[2016-10-23] MEDS: DOCUSATE SODIUM 50 MG/SENNA 8.6 MG TAB PO SCH ×2 (09:00→20:53)
[2016-10-23] MEDS: SODIUM CHLORIDE 0.9% FLUSH 10 ML FLUSH IV FLUSH SCH ×2 (10:49→21:00)
[2016-10-23] MEDS: LISINOPRIL 10 MG TAB PO SCH (10:50)
[2016-10-23] MEDS: PRAVASTATIN SOD 20 MG TAB PO SCH (10:50)
[2016-10-23] MEDS: MULTIVITAMIN TAB PO SCH (10:51)
--- NOTE | 2016-10-23 11:03 | RADRPT ---
EXAM DATE/TIME: 10/22/2016 12:42 [facility] COMPARISON: MRI FOOT RIGHT W & W/O CONTRAST, October 21, 2016, 15:51. INDICATIONS : Right foot abscess. DOSE: 21.7 mCi Tc99m Ceretec labeled white blood cells IV SPECT IMAGIN min, 3 hrs, 20 hrs IMAGNG: SPECT/CT imaging with fusion was performed. RADIATION DOSE: 5.75 CTDIvol (mGy) MEDICAL HISTORY : Diabetes mellitus type 2. Hypercholesterolemia. Hypertension. SURGICAL HISTORY : Tonsillectomy. ENCOUNTER: Initial ACUITY: 1 week PAIN SCALE: 3/10 LOCATION: Right Foot TECHNIQUE: Following the in vitro labeling of autologous white cells and reinjection, whole body scan was perfor med at the specified times. SPECT imaging was performed at the specified time in sagittal, axial and coronal planes. Attenuation correction was performed with the computed tomography and both the atten uation correction and non-attenuation corrected data sets were reviewed. FINDINGS: There is abnormal uptake involving the soft tissues of the fifth digit in the right foot in addition to involvement of the distal portions of the fourth and fifth metatarsal bones in addition to fifth p roximal phalanx. CONCLUSION: Findings are suspicious for osteomyelitis involving the distal portions of the fourth and fifth dista l metatarsal bones of the right foot in addition to fifth proximal phalanx. Torri Lyles MD on October 23, 2016 at 10:59 Board Certified Radiologist. This report was verified electronically.
[2016-10-23 12:00] VITALS: BP 146/66; PULSE 70; RESP 17; TEMP 97.4; O2SAT 97
[2016-10-23] MEDS: VANCOMYCIN INJ 2,500 MG in SODIUM CHLORID 0.9% 500 ML INJ 500 ML IV SCH (12:00)
[2016-10-23] MEDS: ENOXAPARIN SODIUM 40 MG/0.4 ML SYRINGE SQ SCH (13:41)
[2016-10-23 16:00] VITALS: BP 140/65; PULSE 71; RESP 18; TEMP 96.7; O2SAT 97
[2016-10-23 20:00] VITALS: BP 172/79; PULSE 85; RESP 18; TEMP 97.7; O2SAT 94
[2016-10-23 20:44] LABS: BASOPHIL # 0.2 TH/MM3 (0-0.2); BASOPHIL % 1.1 % (0.0-2.0); EOSINOPHIL # 0.4 TH/MM3 (0-0.4); HEMATOCRIT 36.2 % (39.0-51.0); HEMO FLAGS DIFF FINAL; LYMPH % 11.1 % (9.0-44.0); LYMPHOCYTE # 1.5 TH/MM3 (1.0-4.8); MEAN CELL VOLUME 91.9 FL (80.0-100.0); MEAN CORPUSCULAR HEMOGLOBIN 29.7 PG (27.0-34.0); MEAN CORPUSCULAR HGB CONC 32.3 % (32.0-36.0); MONO % 6.1 % (0.0-8.0); NEUT % 78.7 % (16.0-70.0); PLATELET COUNT 328 TH/MM3 (150-450); RED BLOOD COUNT 3.94 MIL/MM3 (4.50-5.90); RED CELL DISTRIBUTION WIDTH 13.9 % (11.6-17.2)
--- NOTE | 2016-10-23 23:06 | HHI.PR ---
Subjective Remarks Patient seen this morning around 11 AM. Says he denies any pain. Denies any chest pain or shortness of breath. Objective Vital Signs Date Time Temp Pulse Resp B/P (MAP) Pulse Ox O2 Delivery O2 Flow Rate FiO2 10/23/16 20:00 97.7 85 18 172/79 (110) 94 10/23/16 16:00 96.7 71 18 140/65 (90) 97 10/23/16 12:00 97.4 70 17 146/66 (92) 97 10/23/16 08:00 98.2 77 18 157/72 (100) 93 10/23/16 00:00 98.5 89 18 132/60 (84) 93 I/O 10/23/16 10/23/16 10/23/16 10/24/16 10/24/16 10/24/16 07:00 15:00 23:00 07:00 15:00 23:00 Intake Total 325 ml Balance 325 ml Intake Oral 325 ml # Voids 0 5 # Bowel Movements 0 Result Diagram: 10/23/16202910/22/16 0440 Objective Remarks GENERAL: appears comfortable. 100 and oriented 3. SKIN: Warm and dry. HEAD: Normocephalic. EYES: No scleral icterus. No injection or drainage. NECK: Supple, trachea midline. No JVD or lymphadenopathy. CARDIOVASCULAR: Regular rate and rhythm without murmurs, gallops, or rubs. RESPIRATORY: Breath sounds equal bilaterally. No accessory muscle use. GASTROINTESTINAL: Abdomen soft, non-tender, nondistended. MUSCULOSKELETAL: No cyanosis, or edema. right foot dressed. BACK: Nontender without obvious deformity. No CVA tenderness. A/P Assessment and Plan == 10/23/16. Right foot cellulitis. Continue broad-spectrum antibiotics. Patient pending surgical management of right foot cellulitis treated appreciate podiatry assistance. CT angiogram with no significant arterial disease noted. Plan per podiatry. 66 year old male with type 2 diabetes and severe peripheral neuropathy, presenting with worsening cellulitis or the right foot, on antibiotics. Right Foot Cellulitis Right Foot diabetic foot infection (overlying fifth metatarsal), possible osteomyelitis of the fifth metatarsal as per MRI Vancomycin Zosyn Probiotic Podiatry consult - tentatively on or schedule tomorrow Discussed with Dr. Dalal, will proceed with CTA with runoff to evaluate flow in the right leg as he has diminished dorsalis pedis pulse DM2 Diabetic Neuropathy Good control at baseline per patient Follow blood sugars Insulin Sliding Scale Diabetic Diet Check A1c Diabetic Neuropathy Contributory Follow clinically Interval outpatient podiatry visits recommended HTN Continue baseline treatments Follow BP Adjust if needed DVT Prophylaxis Lovenox Discharge Planning pending podiatry surgical assistance. Appreciate assistance. Soto Rich MD Oct 23, 2016 23:06
[2016-10-24 00:10] VITALS: BP 148/66; PULSE 79; RESP 18; TEMP 96.8; O2SAT 95
[2016-10-24] MEDS: PIPERACIL-TAZO 3.375 GM PREMIX 50 ML IV SCH ×4 (04:00→21:39)
[2016-10-24] MEDS: INSULIN ASPART SUPPLEMENTAL SCALE SQ SCH ×4 (05:39→21:00)
[2016-10-24] MEDS ORDERED: PHARMACY ORDERED LAB ONE (05:45)
[2016-10-24 06:26] LABS: VANCOMYCIN TROUGH 18.8 MCG/ML (5.0-10.0)
[2016-10-24] MEDS: VANCOMYCIN INJ 2,500 MG in SODIUM CHLORID 0.9% 500 ML INJ 500 ML IV SCH ×2 (06:46→22:16)
[2016-10-24 08:00] VITALS: BP 145/63; PULSE 66; RESP 18; TEMP 97.5; O2SAT 95
[2016-10-24] MEDS: SODIUM CHLORIDE 0.9% FLUSH 10 ML FLUSH IV FLUSH SCH ×2 (09:00→21:39)
[2016-10-24] MEDS: LISINOPRIL 10 MG TAB PO SCH (09:20)
[2016-10-24] MEDS: PRAVASTATIN SOD 20 MG TAB PO SCH (09:20)
[2016-10-24] MEDS: MULTIVITAMIN TAB PO SCH (09:20)
[2016-10-24] MEDS: DOCUSATE SODIUM 50 MG/SENNA 8.6 MG TAB PO SCH ×2 (09:20→21:00)
[2016-10-24 12:00] VITALS: BP 164/73; PULSE 79; RESP 19; TEMP 98; O2SAT 95
--- NOTE | 2016-10-24 13:23 | PD.POD ---
Subjective Podiatric Problems RLE ulcer. Seen at bedside this am Resting comfortably. Pain scale used: 0-10 numeric scale Pain score: 0 Past Med/Surg/Social History Social History Smoking Status: Never Smoker Objective Vital Signs Vital Signs Date Time Temp Pulse Resp B/P (MAP) Pulse Ox O2 Delivery O2 Flow Rate FiO2 10/24/16 08:00 97.5 66 18 145/63 (90) 95 10/24/16 00:10 96.8 79 18 148/66 (93) 95 10/23/16 20:00 97.7 85 18 172/79 (110) 94 10/23/16 16:00 96.7 71 18 140/65 (90) 97 Coded Allergies: No Known Allergies (Unverified , 10/21/16) Other Results Last Impressions Tumor Localization 10/22/16 0000 Signed Impressions: Service Date/Time: October 12:42 - CONCLUSION: Findings are suspicious for osteomyelitis involving the distal portions of the fourth and fifth distal metatarsal bones of the right foot in addition to fifth proximal phalanx. Torri Lyles MD Aorta w/Runoff CTA 10/22/16 0000 Signed Impressions: Service Date/Time: October 11:06 - CONCLUSION: No significant aortoiliac inflow disease or large vessel runoff disease. Distal and small vessel disease not excludable, Faheem Lane MD Foot X-Ray 10/21/16 0000 Signed Impressions: Service Date/Time: Friday, October 21, 2016 11:27 - CONCLUSION: 1. Soft tissue swelling. 2. Degenerative changes. No acute fracture or cortical irregularity to suggest osteomyelitis Shawn Parkinson MD Foot MRI 10/21/16 0000 Signed Impressions: Service Date/Time: Friday, October 21, 2016 15:51 - CONCLUSION: Abnormal appearance to the 5th digit and surrounding soft tissues with absence of contrast enhancement with sharp demarcation suggesting that this there is devascularized. Robby Ceron MD Laboratory Tests Test 10/23/16 20:30 10/24/16 05:30 White Blood Count 14.0 TH/MM3 Red Blood Count 3.94 MIL/MM3 Hemoglobin 11.7 GM/DL Hematocrit 36.2 % Mean Corpuscular Volume 91.9 FL Mean Corpuscular Hemoglobin 29.7 PG Mean Corpuscular Hemoglobin Concent 32.3 % Red Cell Distribution Width 13.9 % Platelet Count 328 TH/MM3 Mean Platelet Volume 7.2 FL Neutrophils (%) (Auto) 78.7 % Lymphocytes (%) (Auto) 11.1 % Monocytes (%) (Auto) 6.1 % Eosinophils (%) (Auto) 3.0 % Basophils (%) (Auto) 1.1 % Neutrophils # (Auto) 11.0 TH/MM3 Lymphocytes # (Auto) 1.5 TH/MM3 Monocytes # (Auto) 0.8 TH/MM3 Eosinophils # (Auto) 0.4 TH/MM3 Basophils # (Auto) 0.2 TH/MM3 CBC Comment DIFF FINAL Differential Comment Creatinine 1.26 MG/DL Estimat Glomerular Filtration Rate 57 ML/MIN Vancomycin Level Trough 18.8 MCG/ML Exam-Podiatry Dermatological Exam Ulcers: Location/Measurements RLE Right foot plantar ischemic tissue : 2.5x2.5 + edema and erythema. No streaking. No active drainage. Assessment & Plan Diagnosis: (1) Diabetic foot infection ICD Codes: E11.69 - Type 2 diabetes mellitus with other specified complication ; L08.9 - Local infection of the skin and subcutaneous tissue, unspecified Status: Acute A/P CTA non diagnostic, discussed with Dr Lane. Recommended a Vascular Consult, pending Plan for surgical intervention after Vascular Evaluation. RX; Betadine DSD , change daily. Bone scan with + OM at the 5th digit and 5th and 4th metatarsal head. I had an extensive diffusion with the patient. He is concerned with IV abx and nephrotoxicity and bid usage. I discussed partial 5th ray amputation and 4th metatarsal head amputation. I did relate that he may have to use a VAC and may necessitated additional surgery. He is at risk for a septic presentation and if he does nothing. He is concerned about use of VAC, scheduling PICC doses as an outpatient, amputation and loss of foot function an stability. Kinjal Dalal DPM Oct 24, 2016 13:23
[2016-10-24] MEDS: ENOXAPARIN SODIUM 40 MG/0.4 ML SYRINGE SQ SCH (14:42)
--- NOTE | 2016-10-24 14:58 | PD.CAR.PN ---
CVT Progress Note Subjective/Hospital Course: 66-year-old male with the plantar necrotic ulcer of the right foot and osteomyelitis Patient does not have any appreciable vascular disease on clinical exam. He has palpable femoral popliteal dissolves pedis and posterior tibial pulses with brisk flow Capillary refill is normal CTA with runoff affirms the above. While patient has some degree of small vessel disease in the distal part of his both lower legs and feet this is result of diabetes mellitus and not amiable to any vascular reconstruction. Patient has excellent inflow and outflow and no vascular procedures are indicated. It should be noted that this patient was initially admitted to [facility] and I went to see the patient there yesterday. Upon my arrival I will stalled the patient was discharged and indeed patient disappeared from my list. Several hours later I received a call from [facility], asking why haven't seen the patient yet and was told that patient actually did not get discharged from [facility], but rather got transferred to [facility]. It would certainly be beneficial if the process was put in place in order to inform the consulting physicians when patient is being transferred to another hospital. This will improve insufficiency and timeliness of consultations and minimize the chance of physicians going on wild goose alix. Thanks J Objective: Vital Signs Date Time Temp Pulse Resp B/P (MAP) Pulse Ox O2 Delivery O2 Flow Rate FiO2 10/24/16 12:00 98.0 79 19 164/73 (103) 95 10/24/16 08:00 97.5 66 18 145/63 (90) 95 10/24/16 00:10 96.8 79 18 148/66 (93) 95 10/23/16 20:00 97.7 85 18 172/79 (110) 94 10/23/16 16:00 96.7 71 18 140/65 (90) 97 Labs: Laboratory Tests Test 10/24/16 05:30 Creatinine 1.26 MG/DL (0.60-1.30) Estimat Glomerular Filtration Rate 57 ML/MIN (>89) Vancomycin Level Trough 18.8 MCG/ML (5.0-10.0) Result Diagram: 10/23/16202910/24/16 0530 Geronimo Wylie MD Oct 24, 2016 14:58
--- NOTE | 2016-10-24 15:36 | MB ---
cc: GERONIMO WOODRUFF MD DATE OF CONSULTATION: 10/24/2016. REASON FOR CONSULTATION: Right foot wound, diabetes mellitus, osteomyelitis, questionable peripheral vascular disease. HISTORY OF PRESENT ILLNESS: 66-year-old gentleman apparently slipped on a concrete surface and developed a wound on his right foot around the fourth metatarsal. Apparently it was not bleeding so the patient sort of forgot about it. He developed an increased redness and started draining from the wound. He was admitted to the hospital with a diagnosis of osteomyelitis and incipient gangrene of the right plantar surface of the foot. The question arises about the vascular status of this patient and possible remedy as far as that is concerned. PAST MEDICAL HISTORY: 1. Neuropathy. 2. Hypertension. 3. Diabetes mellitus for about 15 years. MEDICATIONS: Medications can be found on the chart. 1. Lisinopril. 2. Metformin. 3. Lovastatin. 4. He is currently on antibiotics as well. SOCIAL HISTORY: He does not smoke. He does not drink. PHYSICAL EXAMINATION: GENERAL: The physical exam reveals a pleasant 66-year-old gentleman in no acute distress. HEAD, EYES, EARS, NOSE, THROAT: Normocephalic. No trauma to the head. Pupils equal and reactive. Extraocular muscles intact. NECK: The neck is supple. Bilateral carotid pulses. No bruits. CHEST: Clear. Bilateral breath sounds. HEART: Regular rhythm. ABDOMEN: Obese. Soft. Active bowel sounds. No rebound. No guarding. EXTREMITIES: The patient has palpable femoral, popliteal and dorsalis pedis and posterior tibial pulses bilaterally although on the right side, it is a little harder to palpate because he has swelling of the foot and also swelling of the lower leg with some pitting edema. There is a necrotic ulcer on the plantar aspect of the fourth and fifth metatarsophalangeal joints. The fourth and fifth toes appear to be slightly cyanotic. IMPRESSION: I reviewed laboratory and diagnostic procedures. This gentleman has a classic cage of injury to the foot as a result of diabetic neuropathy with resulting soft tissue infection osteomyelitis. I completely agree with Dr. Dalal and Dr. Ortega that the patient will need resection of the same. I reviewed the CT angiogram with runoff of this patient and this correlates with the patient's physical exam. This patient has palpable pulses and this is consistent with minimal vascular disease as far as the major vessels are concerned. The patient has good inflow, patent superficial femoral arteries and patent trifurcation vessels. There is no question that the patient has small vessel disease in both feet, especially from the ankles down; however, there is no surgical remedy to this. Inflow and outflow are intact and there is nothing more I can do vascular-gunn to improve this. I have discussed this at length with the patient. Thank you very much for the referral. Geronimo LE/HUEY /2:44 PM /3:25 PM
[2016-10-24 16:00] VITALS: BP 163/70; PULSE 73; RESP 16; TEMP 97.4; O2SAT 96
[2016-10-24 20:00] VITALS: BP_SYST 143; PULSE 78; RESP 17; TEMP 97.4; O2SAT 95
--- NOTE | 2016-10-24 23:54 | HHI.PR ---
Subjective Remarks Patient seen this morning around [place]. Patient denies any pain. Denies any chest pain or shortness of breath. He does report mild constipation. Objective Vital Signs Date Time Temp Pulse Resp B/P (MAP) Pulse Ox O2 Delivery O2 Flow Rate FiO2 10/24/16 20:00 97.4 78 17 143/ 95 10/24/16 16:00 97.4 73 16 163/70 (101) 96 10/24/16 12:00 98.0 79 19 164/73 (103) 95 10/24/16 08:00 97.5 66 18 145/63 (90) 95 10/24/16 00:10 96.8 79 18 148/66 (93) 95 I/O 10/24/16 10/24/16 10/24/16 10/25/16 10/25/16 10/25/16 07:00 15:00 23:00 07:00 15:00 23:00 Intake Total 1650 ml Balance 1650 ml Intake Oral 1600 ml IV Total 50 ml # Voids 2 4 # Bowel Movements 1 1 Result Diagram: 10/23/16202910/24/16 0530 Objective Remarks GENERAL: appears comfortable. Sitting up in chair. alert. and oriented 3. SKIN: Warm and dry. HEAD: Normocephalic. EYES: No scleral icterus. No injection or drainage. NECK: Supple, trachea midline. No JVD or lymphadenopathy. CARDIOVASCULAR: Regular rate and rhythm without murmurs, gallops, or rubs. RESPIRATORY: Breath sounds equal bilaterally. No accessory muscle use. GASTROINTESTINAL: Abdomen soft, non-tender, nondistended. MUSCULOSKELETAL: No cyanosis, or edema. right foot dressed. BACK: Nontender without obvious deformity. No CVA tenderness. A/P Assessment and Plan == 10/24/16. //Right foot cellulitis. Continue broad-spectrum antibiotics. Patient pending surgical management of right foot cellulitis. appreciate podiatry assistance. CT angiogram with no significant arterial disease noted. podiatry plans for partial amputation right foot. //Constipation. Laxatives ordered. 66 year old male with type 2 diabetes and severe peripheral neuropathy, presenting with worsening cellulitis or the right foot, on antibiotics. Right Foot Cellulitis Right Foot diabetic foot infection (overlying fifth metatarsal), possible osteomyelitis of the fifth metatarsal as per MRI Vancomycin Zosyn Probiotic Podiatry consult - tentatively on or schedule tomorrow Discussed with Dr. Dalal, will proceed with CTA with runoff to evaluate flow in the right leg as he has diminished dorsalis pedis pulse DM2 Diabetic Neuropathy Good control at baseline per patient Follow blood sugars Insulin Sliding Scale Diabetic Diet Check A1c Diabetic Neuropathy Contributory Follow clinically Interval outpatient podiatry visits recommended HTN Continue baseline treatments Follow BP Adjust if needed DVT Prophylaxis Lovenox Discharge Planning pending podiatry surgical assistance. Appreciate assistance. Soto Rich MD Oct 24, 2016 23:54
[2016-10-25] VITALS: BP 148/67; PULSE 74; RESP 17; TEMP 99; O2SAT 95
[2016-10-25] MEDS: PIPERACIL-TAZO 3.375 GM PREMIX 50 ML IV SCH ×4 (05:22→19:49)
[2016-10-25] MEDS: INSULIN ASPART SUPPLEMENTAL SCALE SQ SCH ×4 (05:25→19:48)
[2016-10-25 07:27] LABS: AUTOMATED NEUTROPHIL # 9.4 TH/MM3 (1.8-7.7); BASOPHIL # 0.2 TH/MM3 (0-0.2); BASOPHIL % 1.4 % (0.0-2.0); EOSINOPHIL # 0.5 TH/MM3 (0-0.4); EOSINOPHIL % 4.2 % (0.0-4.0); HEMATOCRIT 32.8 % (39.0-51.0); HEMO FLAGS DIFF FINAL; LYMPHOCYTE # 1.4 TH/MM3 (1.0-4.8); MEAN CORPUSCULAR HEMOGLOBIN 30.7 PG (27.0-34.0); MEAN CORPUSCULAR HGB CONC 33.3 % (32.0-36.0); MONO % 7.3 % (0.0-8.0); NEUT % 76.1 % (16.0-70.0); PLATELET COUNT 333 TH/MM3 (150-450); RED BLOOD COUNT 3.57 MIL/MM3 (4.50-5.90); RED CELL DISTRIBUTION WIDTH 13.9 % (11.6-17.2); WHITE BLOOD COUNT 12.3 TH/MM3 (4.0-11.0)
[2016-10-25 07:50] LABS: BICARBONATE 25.8 MEQ/L (21.0-32.0)
[2016-10-25 08:00] VITALS: BP 171/75; PULSE 91; RESP 22; TEMP 98.1; O2SAT 92
[2016-10-25] MEDS: SODIUM CHLORIDE 0.9% FLUSH 10 ML FLUSH IV FLUSH SCH ×2 (08:25→19:48)
[2016-10-25] MEDS: MULTIVITAMIN TAB PO SCH (08:25)
[2016-10-25] MEDS: LISINOPRIL 10 MG TAB PO SCH (08:25)
[2016-10-25] MEDS: PRAVASTATIN SOD 20 MG TAB PO SCH (08:26)
[2016-10-25] MEDS: DOCUSATE SODIUM 50 MG/SENNA 8.6 MG TAB PO SCH ×2 (08:26→19:48)
[2016-10-25 12:00] VITALS: BP 176/75; PULSE 78; RESP 22; TEMP 96.5; O2SAT 95
[2016-10-25] MEDS: ENOXAPARIN SODIUM 40 MG/0.4 ML SYRINGE SQ SCH (14:09)
[2016-10-25 16:00] VITALS: BP 149/68; PULSE 71; RESP 18; TEMP 97.7; O2SAT 94
[2016-10-25] MEDS ORDERED: HYDROCHLOROTHIAZIDE 12.5 MG CAP PO ONE (16:00)
--- NOTE | 2016-10-25 16:29 | RADRPT ---
EXAM DATE/TIME: 10/25/2016 16:01 [facility] COMPARISON: No previous studies available for comparison. INDICATIONS : Right leg swelling. MEDICAL HISTORY : Hypercholesterolemia. Hypertension. Diabetes mellitus type 2. Anticoagulant therapy, Aspirin 81mg. SURGICAL HISTORY : Tonsillectomy. Cataracts. Hernia repair. ENCOUNTER: Initial ACUITY: 1 week PAIN SCORE: 4/10 LOCATION: Right leg. TECHNIQUE: Venous ultrasound of the leg was performed from the inguinal ligament to the proximal calf. Real-ant e, color Doppler and spectral tracing, compression and augmentation techniques were used. FINDINGS: There is normal compressibility of the deep venous system from the inguinal region to the proximal ca lf. No echogenic clot is seen in the lumen of the common femoral, femoral, popliteal, and posterior tibial veins. There is a normal response of the venous system to proximal and distal augmentation an d respiration. CONCLUSION: No evidence of DVT.. Eugene Estrada MD on October 25, 2016 at 16:27 Board Certified Radiologist. This report was verified electronically.
[2016-10-25] MEDS: VANCOMYCIN INJ 2,500 MG in SODIUM CHLORID 0.9% 500 ML INJ 500 ML IV SCH (17:54)
[2016-10-25 20:00] VITALS: BP 159/67; PULSE 76; RESP 20; TEMP 97.4; O2SAT 96
--- NOTE | 2016-10-25 20:50 | HHI.PR ---
Subjective Remarks Patient seen today around noon. Denies any pain. Denies any chest pain or shortness of breath. Is wondering if anything can be done for right lower extremity edema which has continued during hospitalization. Objective Vital Signs Date Time Temp Pulse Resp B/P (MAP) Pulse Ox O2 Delivery O2 Flow Rate FiO2 10/25/16 20:00 97.4 76 20 159/67 (97) 96 10/25/16 16:00 97.7 71 18 149/68 (95) 94 10/25/16 12:00 96.5 78 22 176/75 (108) 95 10/25/16 08:00 98.1 91 22 171/75 (107) 92 10/25/16 00:00 99.0 74 17 148/67 (94) 95 I/O 10/24/16 10/24/16 10/24/16 10/25/16 10/25/16 10/25/16 07:00 15:00 23:00 07:00 15:00 23:00 Intake Total 1650 ml 790 ml 1600 ml Balance 1650 ml 790 ml 1600 ml Intake Oral 1600 ml 240 ml 1600 ml IV Total 50 ml 550 ml # Voids 2 4 2 4 # Bowel Movements 1 1 1 Result Diagram: 10/25/16 0557 10/25/16 0557 Objective Remarks GENERAL: appears comfortable. Sitting up in chair. alert. and oriented 3. Exam unchanged from yesterday. SKIN: Warm and dry. HEAD: Normocephalic. EYES: No scleral icterus. No injection or drainage. NECK: Supple, trachea midline. No JVD or lymphadenopathy. CARDIOVASCULAR: Regular rate and rhythm without murmurs, gallops, or rubs. RESPIRATORY: Breath sounds equal bilaterally. No accessory muscle use. GASTROINTESTINAL: Abdomen soft, non-tender, nondistended. MUSCULOSKELETAL: No cyanosis. right foot dressed. 1+ right-sided edema as before. BACK: Nontender without obvious deformity. No CVA tenderness. A/P Assessment and Plan == 10/25/16. //Right-sided venous stasis edema. Doppler ultrasound to rule out DVT performed and negative. We'll start Home wraps. //Hypertension. Systolic blood pressure elevated in the 170s. Will add hydrochlorothiazide, which will help with edema as well. //Right foot osteomyelitis. podiatry plans for partial amputation right foot. -Leukocytosis 12.3, improved from 14 on 10/23. Continue broad-spectrum antibiotics. 66 year old male with type 2 diabetes and severe peripheral neuropathy, presenting with worsening cellulitis or the right foot, on antibiotics. //Right Foot Cellulitis //Right Foot diabetic foot infection (overlying fifth metatarsal), possible // osteomyelitis of the fifth metatarsal as per MRI Vancomycin Zosyn Probiotic Podiatry consult - tentatively on or schedule tomorrow Discussed with Dr. Dalal, will proceed with CTA with runoff to evaluate flow in the right leg as he has diminished dorsalis pedis pulse DM2 //Diabetic Neuropathy Good control at baseline per patient Follow blood sugars Insulin Sliding Scale Diabetic Diet Check A1c=6.3 //Diabetic Neuropathy Contributory Follow clinically Interval outpatient podiatry visits recommended //HTN Continue baseline treatments Follow BP Adjust if needed //Constipation. Resolved after laxatives. Continue laxatives //DVT Prophylaxis Lovenox Discharge Planning pending podiatry surgical assistance. Appreciate assistance. Stoo Rich MD Oct 25, 2016 20:50
[2016-10-26] VITALS: BP 117/72; PULSE 74; RESP 20; TEMP 97.3; O2SAT 97
[2016-10-26] MEDS: PIPERACIL-TAZO 3.375 GM PREMIX 50 ML IV SCH ×3 (04:00→22:19)
[2016-10-26] MEDS: INSULIN ASPART SUPPLEMENTAL SCALE SQ SCH ×4 (05:27→20:30)
[2016-10-26 08:37] VITALS: BP 112/56; PULSE 68; RESP 19; TEMP 97.6; O2SAT 98
[2016-10-26] MEDS: SODIUM CHLORIDE 0.9% FLUSH 10 ML FLUSH IV FLUSH SCH ×2 (09:00→21:00)
[2016-10-26] MEDS: DOCUSATE SODIUM 50 MG/SENNA 8.6 MG TAB PO SCH ×2 (09:00→20:31)
[2016-10-26] MEDS ORDERED: HYDROCHLOROTHIAZIDE 12.5 MG CAP PO SCH (09:00)
[2016-10-26] MEDS: MULTIVITAMIN TAB PO SCH (09:47)
[2016-10-26] MEDS: LISINOPRIL 10 MG TAB PO SCH (09:47)
[2016-10-26] MEDS: PRAVASTATIN SOD 20 MG TAB PO SCH (09:47)
[2016-10-26] MEDS: VANCOMYCIN INJ 2,500 MG in SODIUM CHLORID 0.9% 500 ML INJ 500 ML IV SCH (10:31)
[2016-10-26 12:00] VITALS: BP 151/67; PULSE 62; RESP 18; TEMP 97; O2SAT 94
[2016-10-26] MEDS: ENOXAPARIN SODIUM 40 MG/0.4 ML SYRINGE SQ SCH (14:00)
[2016-10-26 16:00] VITALS: BP 162/76; PULSE 64; RESP 16; TEMP 97; O2SAT 96
[2016-10-26 20:00] VITALS: BP 153/78; PULSE 71; RESP 22; TEMP 97.5; O2SAT 95
[2016-10-26] MEDS: ACETAMINOPHEN 325 MG TAB PO PRN (20:33)
--- NOTE | 2016-10-26 23:57 | HHI.PR ---
Subjective Remarks Patient seen today around noon. Says that right leg swelling has improved. Denies any chest pain or shortness of breath improving edema with Home wraps and diuretic. Blood pressure elevated. Increase hydrochlorothiazide.Foot surgery per podiatry. Objective Vital Signs Date Time Temp Pulse Resp B/P (MAP) Pulse Ox O2 Delivery O2 Flow Rate FiO2 10/26/16 20:00 97.5 71 22 153/78 (103) 95 10/26/16 16:00 97.0 64 16 162/76 (104) 96 10/26/16 12:00 97.0 62 18 151/67 (95) 94 10/26/16 08:37 97.6 68 19 112/56 (74) 98 10/26/16 00:00 97.3 74 20 117/72 (87) 97 I/O 10/26/16 10/26/16 10/26/16 10/27/16 10/27/16 10/27/16 07:00 15:00 23:00 07:00 15:00 23:00 Intake Total 240 ml 1200 ml Balance 240 ml 1200 ml Intake Oral 240 ml 1200 ml # Voids 2 4 # Bowel Movements 1 Result Diagram: 10/25/16 0557 10/26/16 0440 Objective Remarks GENERAL: appears comfortable. Sitting up in chair. alert. and oriented 3. Exam unchanged from yesterday. SKIN: Warm and dry. HEAD: Normocephalic. EYES: No scleral icterus. No injection or drainage. NECK: Supple, trachea midline. No JVD or lymphadenopathy. CARDIOVASCULAR: Regular rate and rhythm without murmurs, gallops, or rubs. RESPIRATORY: Breath sounds equal bilaterally. No accessory muscle use. GASTROINTESTINAL: Abdomen soft, non-tender, nondistended. MUSCULOSKELETAL: No cyanosis. right foot dressed. 1+ right-sided edema improving from yesterday. BACK: Nontender without obvious deformity. No CVA tenderness. A/P Assessment and Plan == 10/26/16. //Right-sided venous stasis edema. neg US for DVT. improving edema with Home wraps and diuretic. Blood pressure elevated. Increase hydrochlorothiazide.Foot surgery per podiatry. //Hypertension. Systolic blood pressure elevated still 160s. incr HCTZ to 25mg daily //Right foot osteomyelitis. podiatry plans for partial amputation right foot. 66 year old male with type 2 diabetes and severe peripheral neuropathy, presenting with worsening cellulitis or the right foot, on antibiotics. //Right Foot Cellulitis //Right Foot diabetic foot infection (overlying fifth metatarsal), possible // osteomyelitis of the fifth metatarsal as per MRI Vancomycin Zosyn Probiotic Podiatry consult - tentatively on or schedule tomorrow Discussed with Dr. Dalal, will proceed with CTA with runoff to evaluate flow in the right leg as he has diminished dorsalis pedis pulse DM2 //Diabetic Neuropathy Good control at baseline per patient Follow blood sugars Insulin Sliding Scale Diabetic Diet Check A1c=6.3 //Diabetic Neuropathy Contributory Follow clinically Interval outpatient podiatry visits recommended //HTN Continue baseline treatments Follow BP Adjust if needed //Constipation. Resolved after laxatives. Continue laxatives //DVT Prophylaxis Lovenox Discharge Planning pending podiatry surgical assistance. Appreciate assistance. Soto Rich MD Oct 26, 2016 23:57
[2016-10-27] VITALS: BP 158/72; PULSE 77; RESP 22; TEMP 96.5; O2SAT 92
[2016-10-27 04:52] LABS: AUTOMATED NEUTROPHIL # 7.7 TH/MM3 (1.8-7.7); BASOPHIL # 0.1 TH/MM3 (0-0.2); BASOPHIL % 0.7 % (0.0-2.0); EOSINOPHIL # 0.6 TH/MM3 (0-0.4); EOSINOPHIL % 5.5 % (0.0-4.0); HEMATOCRIT 32.6 % (39.0-51.0); HEMO FLAGS DIFF FINAL; LYMPH % 12.2 % (9.0-44.0); LYMPHOCYTE # 1.3 TH/MM3 (1.0-4.8); MEAN CORPUSCULAR HEMOGLOBIN 30.9 PG (27.0-34.0); MEAN CORPUSCULAR HGB CONC 33.6 % (32.0-36.0); MONO % 8.3 % (0.0-8.0); NEUT % 73.3 % (16.0-70.0); PLATELET COUNT 333 TH/MM3 (150-450); RED BLOOD COUNT 3.54 MIL/MM3 (4.50-5.90); RED CELL DISTRIBUTION WIDTH 13.6 % (11.6-17.2); WHITE BLOOD COUNT 10.5 TH/MM3 (4.0-11.0)
[2016-10-27] MEDS: PIPERACIL-TAZO 3.375 GM PREMIX 50 ML IV SCH ×4 (05:31→21:53)
[2016-10-27] MEDS: VANCOMYCIN INJ 2,500 MG in SODIUM CHLORID 0.9% 500 ML INJ 500 ML IV SCH ×2 (06:24→23:10)
[2016-10-27] MEDS: INSULIN ASPART SUPPLEMENTAL SCALE SQ SCH ×4 (06:27→21:00)
[2016-10-27 08:00] VITALS: BP 167/77; PULSE 64; RESP 18; TEMP 96.8; O2SAT 93
[2016-10-27] MEDS: DOCUSATE SODIUM 50 MG/SENNA 8.6 MG TAB PO SCH ×2 (09:00→21:00)
[2016-10-27] MEDS: MULTIVITAMIN TAB PO SCH (09:29)
[2016-10-27] MEDS: PRAVASTATIN SOD 20 MG TAB PO SCH (09:29)
[2016-10-27] MEDS: LISINOPRIL 10 MG TAB PO SCH (09:30)
[2016-10-27] MEDS: HYDROCHLOROTHIAZIDE 12.5 MG CAP PO SCH (09:30)
[2016-10-27] MEDS: SODIUM CHLORIDE 0.9% FLUSH 10 ML FLUSH IV FLUSH SCH ×2 (09:31→21:52)
--- NOTE | 2016-10-27 10:20 | PD.POD ---
Subjective Pain scale used: 0-10 numeric scale Pain score: 0 Remarks Right foot with minimal pain, appears ready to have surgery. Past Med/Surg/Social History Social History Smoking Status: Never Smoker Objective Vital Signs Vital Signs Date Time Temp Pulse Resp B/P (MAP) Pulse Ox O2 Delivery O2 Flow Rate FiO2 10/27/16 08:00 96.8 64 18 167/77 (107) 93 10/27/16 00:00 96.5 77 22 158/72 (100) 92 10/26/16 20:00 97.5 71 22 153/78 (103) 95 10/26/16 16:00 97.0 64 16 162/76 (104) 96 10/26/16 12:00 97.0 62 18 151/67 (95) 94 Coded Allergies: No Known Allergies (Unverified , 10/21/16) Medications and IVs Administered Medications Medications (Trade) Dose Ordered Sig/Saeed Route PRN Reason Start Time Stop Time Status Last Admin Dose Admin Sodium Chloride (NS Flush) 2 ml BID IV FLUSH 10/21/16 21:00 10/27/16 09:31 Acetaminophen (Tylenol) 650 mg Q4H PRN PO TEMP > 100.4 10/21/16 12:45 10/26/16 20:33 Enoxaparin Sodium (Lovenox Inj) 40 mg Q24H SQ 10/21/16 14:00 10/26/16 14:00 Vancomycin HCl 2500 mg/Sodium Chloride 525 ml @ 250 mls/hr Q18H IV 10/22/16 00:00 10/27/16 06:24 Lisinopril (Prinivil) 10 mg DAILY PO 10/22/16 09:00 10/27/16 09:30 Pravastatin Sodium (Pravachol) 20 mg DAILY PO 10/22/16 09:00 10/27/16 09:29 Multivitamins (Theragran) 1 tab DAILY PO 10/22/16 09:00 10/27/16 09:29 Piperacillin Sod/ Tazobactam Sod 50 ml @ 100 mls/hr Q6H IV 10/22/16 22:00 10/27/16 09:31 Senna/Docusate Sodium (Stacey-Colace) 1 tab BID PO 10/25/16 09:00 10/25/16 08:26 Hydrochlorothiazide (Microzide) 25 mg DAILY PO 10/27/16 09:00 10/27/16 09:30 Other Results Laboratory Tests Test 10/27/16 04:00 White Blood Count 10.5 TH/MM3 Red Blood Count 3.54 MIL/MM3 Hemoglobin 10.9 GM/DL Hematocrit 32.6 % Mean Corpuscular Volume 92.0 FL Mean Corpuscular Hemoglobin 30.9 PG Mean Corpuscular Hemoglobin Concent 33.6 % Red Cell Distribution Width 13.6 % Platelet Count 333 TH/MM3 Mean Platelet Volume 7.4 FL Neutrophils (%) (Auto) 73.3 % Lymphocytes (%) (Auto) 12.2 % Monocytes (%) (Auto) 8.3 % Eosinophils (%) (Auto) 5.5 % Basophils (%) (Auto) 0.7 % Neutrophils # (Auto) 7.7 TH/MM3 Lymphocytes # (Auto) 1.3 TH/MM3 Monocytes # (Auto) 0.9 TH/MM3 Eosinophils # (Auto) 0.6 TH/MM3 Basophils # (Auto) 0.1 TH/MM3 CBC Comment DIFF FINAL Differential Comment Laboratory Tests Test 10/26/16 04:40 Creatinine 1.27 MG/DL Estimat Glomerular Filtration Rate 57 ML/MIN ORDERED: WOUND CULTURE QUERIES: Method of Collection: SWAB ACT WKST: WOUNDS 10/22/16 #1 Procedure Result Verified Site GRAM STAIN Final 10/22/16-09 RARE WBC RARE EPITHELIAL CELL MODERATE MIXED YOBANY WITH PREDOMINANT GRAM POSITIVE COCCI IN PAIRS AND CLUSTERS WOUND CULTURE Final 10/23/16-1420 HEAVY GROWTH STAPHYLOCOCCUS AUREUS HEAVY GROWTH PASTEURELLA MULTOCIDA NO FURTHER WORKUP Isolate(s) held in Microbiology lab for 5 days. For further workup, please call the lab [phone]. HEAVY GROWTH NORMAL SKIN YOBANY HEAVY GROWTH ANAEROBIC GRAM POSITIVE COCCI - BETA LAC NEG NO FURTHER WORKUP Isolate(s) held in Microbiology lab for 5 days. For further workup, please call the lab [phone]. CONTINUED ON NEXT PAGE RUN DATE: 10/23/16 [facility] LAB LIVE PAGE 2 RUN TIME: [id number] [address] DOCTOR REPORT PATIENT Patient: LEIGHA MUKHERJEE JR #[id number] (Continued) Specimen: [id number] Collected: 10/21/16 Received: 10/21/16 (Continued) Procedure Result Verified Site WOUND CULTURE Final (continued) 10/23/16-1420 [facility] RX --------- --- PENICILLIN G <0.03 S OXACILLIN <0.25 S CEFAZOLIN <4 S CEFTRIAXONE <4 S GENTAMICIN <1 S ERYTHROMYCIN <0.25 S CLINDAMYCIN 0.5 S DAPTOMYCIN 0.5 S VANCOMYCIN 2 S TETRACYCLINE <1 S CHLORAMPHENICOL <8 S TRIMETH/SULFA <0.5/9.5 S LEVOFLOXACIN <0.5 S LINEZOLID 2 S RIFAMPIN <1 S WOUND CULTURE Preliminary (changed) 10/22/16-1357 HEAVY GROWTH STAPHYLOCOCCUS AUREUS - SUSCEPTIBILITY TO FOLLOW END OF REPORT [place] COMPARISON: MRI FOOT RIGHT W & W/O CONTRAST, October 21, 2016, 15:51. INDICATIONS : Right foot abscess. DOSE: 21.7 mCi Tc99m Ceretec labeled white blood cells IV SPECT IMAGIN min, 3 hrs, 20 hrs IMAGNG: SPECT/CT imaging with fusion was performed. RADIATION DOSE: 5.75 CTDIvol (mGy) MEDICAL HISTORY : Diabetes mellitus type 2. Hypercholesterolemia. Hypertension. SURGICAL HISTORY : Tonsillectomy. ENCOUNTER: Initial ACUITY: 1 week PAIN SCALE: 3/10 LOCATION: Right Foot TECHNIQUE: Following the in vitro labeling of autologous white cells and reinjection, whole body scan was performed at the specified times. SPECT imaging was performed at the specified time in sagittal, axial and coronal planes. Attenuation correction was performed with the computed tomography and both the attenuation correction and non-attenuation corrected data sets were reviewed. FINDINGS: There is abnormal uptake involving the soft tissues of the fifth digit in the right foot in addition to involvement of the distal portions of the fourth and fifth metatarsal bones in addition to fifth proximal phalanx. CONCLUSION: Findings are suspicious for osteomyelitis involving the distal portions of the fourth and fifth distal metatarsal bones of the right foot in addition to fifth proximal phalanx. Torri Lyles MD on October 23, 2016 at 10:59 Board Certified Radiologist. This report was verified electronically. Exam-Podiatry Remarks Right foot- necrotic plantar foot eschar, swollen red 5th digit, foot is warm, sensation is not intact below ankle, good ROM foot and ankle joints, Left foot without issues. Assessment & Plan A/P Right DM foot infection, OM, Necrotic ulcer. I have reviewed all recommendations from Vascular ([facility]) and Podiatry ( [place]) OR tomorrow for 4 5 digit amputation possible with 4 5 metatarsal resection with possible wound vac. Reviewed risks and benefits, may need intermediate teacher ABX, months of wound care, possible more surgery at a later date. NPO after MN, pts leg signed, ordered consent. Reviewed case with medicine, pt martina for am surgery. Jayro Ortega DPM Oct 27, 2016 10:20
[2016-10-27 12:00] VITALS: BP 143/69; PULSE 64; RESP 18; TEMP 97; O2SAT 94
[2016-10-27] MEDS: ENOXAPARIN SODIUM 40 MG/0.4 ML SYRINGE SQ SCH (13:44)
[2016-10-27 16:00] VITALS: BP 153/72; PULSE 63; RESP 18; TEMP 97.5; O2SAT 97
[2016-10-27 20:00] VITALS: BP 160/76; PULSE 74; RESP 22; TEMP 98.1; O2SAT 95
--- NOTE | 2016-10-27 21:30 | HHI.PR ---
Subjective Remarks Patient seen this morning. Sitting up in a recliner. Says he is comfortable. Denies any chest pain or shortness of breath. Patient denies any history of heart problems. Denies any history of chest pain with exertion. Patient works out for 30 minutes on the [email or web address] prior to hospitalization. No history of stress test. Patient does not snore at night that he knows, however is morbidly obese and high risk for sleep apnea. Right lower extremity edema continues to improve with Home wraps. [facility] daily Objective Vital Signs Date Time Temp Pulse Resp B/P (MAP) Pulse Ox O2 Delivery O2 Flow Rate FiO2 10/27/16 20:00 98.1 74 22 160/76 (104) 95 10/27/16 16:00 97.5 63 18 153/72 (99) 97 10/27/16 12:00 97.0 64 18 143/69 (93) 94 10/27/16 08:00 96.8 64 18 167/77 (107) 93 10/27/16 00:00 96.5 77 22 158/72 (100) 92 I/O 10/26/16 10/26/16 10/26/16 10/27/16 10/27/16 10/27/16 07:00 15:00 23:00 07:00 15:00 23:00 Intake Total 240 ml 1730 ml 290 ml 720 ml Balance 240 ml 1730 ml 290 ml 720 ml Intake Oral 240 ml 1680 ml 240 ml 720 ml IV Total 50 ml 50 ml # Voids 2 7 2 4 # Bowel Movements 1 0 Result Diagram: 10/27/16 0400 10/26/16 0440 Objective Remarks GENERAL: appears comfortable. Sitting up in chair. feet elevated.alert. and oriented 3. SKIN: Warm and dry. HEAD: Normocephalic. EYES: No scleral icterus. No injection or drainage. NECK: Supple, trachea midline. No JVD or lymphadenopathy. CARDIOVASCULAR: Regular rate and rhythm without murmurs, gallops, or rubs. RESPIRATORY: Breath sounds equal bilaterally. No accessory muscle use. GASTROINTESTINAL: Abdomen soft, non-tender, nondistended. MUSCULOSKELETAL: No cyanosis. right foot dressed. 1+ right-sided edema continues improving. BACK: Nontender without obvious deformity. No CVA tenderness. A/P Assessment and Plan == 10/27/16. //Right-sided venous stasis edema. neg US for DVT. improving edema with Home wraps and diuretic. //Hypertension. Systolic blood pressure improved in the 150s on Hydrocort thiazide. //Right foot osteomyelitis. podiatry plans for partial amputation right foot tomorrow. Patient with well controlled diabetes, morbid obesity, hypertension. No history of heart disease or exertional chest pain. Patient is medically optimized for surgery. 66 year old male with type 2 diabetes and severe peripheral neuropathy, presenting with worsening cellulitis or the right foot, on antibiotics. //Right Foot Cellulitis //Right Foot diabetic foot infection (overlying fifth metatarsal), possible // osteomyelitis of the fifth metatarsal as per MRI Vancomycin Zosyn Probiotic Podiatry consult - tentatively on or schedule tomorrow Discussed with Dr. Dalal, will proceed with CTA with runoff to evaluate flow in the right leg as he has diminished dorsalis pedis pulse DM2 //Diabetic Neuropathy Good control at baseline per patient Follow blood sugars Insulin Sliding Scale Diabetic Diet Check A1c=6.3 //Diabetic Neuropathy Contributory Follow clinically Interval outpatient podiatry visits recommended //HTN Continue baseline treatments Follow BP Adjust if needed //Constipation. Resolved after laxatives. Continue laxatives //DVT Prophylaxis Lovenox Discharge Planning plan right foot surgery 10/28. -Expect discharge home by Wednesday. - Appreciate case management assistance. Soto Rich MD Oct 27, 2016 21:30
[2016-10-28] VITALS: BP 142/64; PULSE 74; RESP 22; TEMP 97.7; O2SAT 95
[2016-10-28] MEDS ORDERED: LACTATED RINGER'S 1000 ML IV PRN (02:00)
[2016-10-28] MEDS: PIPERACIL-TAZO 3.375 GM PREMIX 50 ML IV SCH ×4 (03:50→20:25)
[2016-10-28 06:30] VITALS: BP 145/64; PULSE 76; RESP 20; TEMP 98.4; O2SAT 92
[2016-10-28] MEDS ORDERED: FAMOTIDINE 20 MG/2 ML VIAL ONE (07:19)
[2016-10-28] MEDS ORDERED: MIDAZOLAM HCL 2 MG/2 ML VIAL ONE (07:19)
[2016-10-28] MEDS: INSULIN ASPART SUPPLEMENTAL SCALE SQ SCH ×4 (08:00→20:24)
[2016-10-28] MEDS ORDERED: DO NOT ADM ANY ANTICOAGULANT DRUGS PRN (08:50)
--- NOTE | 2016-10-28 08:55 | HHI.PR ---
Immediate Post Op Note Procedure Date: Oct 28, 2016 Pre Op Diagnosis: (1) Diabetic foot infection (2) Osteomyelitis of right foot Post Op Diagnosis: same Surgeon: Jayro Deshpande Digital Imager(s): scrub Procedure: Right 4 5 digit amputation, 4 5 metatarsal resection, rotational skin plasty plantar foot great than 10cm Findings: see op dict Additional Information: blood flow appears adequate Complications: none Specimen(s) removed: 4 5 digits, 4 5 metatarsal to check margin for om- path, deep wound cx taken of tissue and bone for micro Estimated blood loss: less than 30 mL Anesthesia: General Drains: Other IVF Patient to: PACU Patient Condition: Good Implant/Devices: SEE IMPLANT LOG (if applicable) Date/Time of Procedure: SEE SURGICAL CARE RECORD Jayro Deshpande DPM Oct 28, 2016 08:55
[2016-10-28] MEDS ORDERED: oxyCODONE/ACETAMINOPHEN 7.5 MG/325 MG TAB PO PRN (09:00)
[2016-10-28] MEDS: DOCUSATE SODIUM 50 MG/SENNA 8.6 MG TAB PO SCH ×2 (09:00→20:12)
[2016-10-28 09:40] VITALS: BP 134/64; PULSE 96; RESP 18; TEMP 96.5; O2SAT 94
[2016-10-28] MEDS: MULTIVITAMIN TAB PO SCH (10:11)
[2016-10-28] MEDS: ACETAMINOPHEN/HYDROcodone 325 MG/5 MG TAB PO PRN ×2 (10:11→20:13)
[2016-10-28] MEDS: LISINOPRIL 10 MG TAB PO SCH (10:12)
[2016-10-28] MEDS: PRAVASTATIN SOD 20 MG TAB PO SCH (10:13)
[2016-10-28] MEDS: HYDROCHLOROTHIAZIDE 12.5 MG CAP PO SCH (10:14)
[2016-10-28] MEDS: SODIUM CHLORIDE 0.9% FLUSH 10 ML FLUSH IV FLUSH SCH ×2 (10:16→20:10)
[2016-10-28 12:00] VITALS: BP 121/58; PULSE 66; RESP 18; TEMP 95.6; O2SAT 91
[2016-10-28] MEDS ORDERED: ONDANSETRON HCL 4 MG/2 ML VIAL IV PUSH ONE (12:00)
[2016-10-28] MEDS: ENOXAPARIN SODIUM 40 MG/0.4 ML SYRINGE SQ SCH (12:00)
[2016-10-28] MEDS ORDERED: PROPOFOL 200 MG/20 ML AMP IV ONE (12:00)
[2016-10-28] MEDS ORDERED: ePHEDrine/NS 25 MG/5 ML SYR IV ONE (12:00)
--- NOTE | 2016-10-28 14:28 | HHI.PR ---
Subjective Remarks pain controlled. no CP/SOb/N/V wondering when he will get discharged. would like a bedside commode Objective Vitals Vital Signs Date Time Temp Pulse Resp B/P (MAP) Pulse Ox O2 Delivery O2 Flow Rate FiO2 10/28/16 12:00 95.6 66 18 121/58 (79) 91 10/28/16 09:40 96.5 96 18 134/64 (87) 94 10/28/16 09:24 98.6 Nasal Cannula 2 10/28/16 09:15 63 17 122/60 (80) 97 Nasal Cannula 2 10/28/16 09:00 67 16 130/64 (86) 93 Nasal Cannula 2 10/28/16 08:49 98.6 78 16 124/57 (79) 96 Nasal Cannula 4 10/28/16 06:30 98.4 76 20 145/64 (91) 92 10/28/16 00:00 97.7 74 22 142/64 (90) 95 10/27/16 20:00 98.1 74 22 160/76 (104) 95 10/27/16 16:00 97.5 63 18 153/72 (99) 97 I/O 10/27/16 10/27/16 10/27/16 10/28/16 10/28/16 10/28/16 07:00 15:00 23:00 07:00 15:00 23:00 Intake Total 290 ml 870 ml 740 ml 600 ml Output Total 30 ml Balance 290 ml 870 ml 740 ml 570 ml Intake Oral 240 ml 720 ml 240 ml IV Total 50 ml 150 ml 500 ml 100 ml Other 500 ml Output Estimated Blood Loss 30 ml # Voids 2 4 2 # Bowel Movements 0 0 Result Diagram: 10/27/16 0400 10/28/16 0554 Imaging Last Impressions Lower Extremity Ultrasound 10/25/16 0000 Signed Impressions: Service Date/Time: Tuesday, October 25, 2016 16:01 - CONCLUSION: No evidence of DVT.. Eugene Estrada MD Tumor Localization 10/22/16 0000 Signed Impressions: Service Date/Time: October 12:42 - CONCLUSION: Findings are suspicious for osteomyelitis involving the distal portions of the fourth and fifth distal metatarsal bones of the right foot in addition to fifth proximal phalanx. Torri Lyles MD Aorta w/Runoff CTA 10/22/16 0000 Signed Impressions: Service Date/Time: October 11:06 - CONCLUSION: No significant aortoiliac inflow disease or large vessel runoff disease. Distal and small vessel disease not excludable, Faheem Lane MD Foot X-Ray 10/21/16 0000 Signed Impressions: Service Date/Time: Friday, October 21, 2016 11:27 - CONCLUSION: 1. Soft tissue swelling. 2. Degenerative changes. No acute fracture or cortical irregularity to suggest osteomyelitis Shawn Parkinson MD Foot MRI 10/21/16 0000 Signed Impressions: Service Date/Time: Friday, October 21, 2016 15:51 - CONCLUSION: Abnormal appearance to the 5th digit and surrounding soft tissues with absence of contrast enhancement with sharp demarcation suggesting that this there is devascularized. Robby Ceron MD Objective Remarks GENERAL: appears comfortable. laying in bed NECK: trachea midline. CARDIOVASCULAR: Regular rate and rhythm without murmurs RESPIRATORY: Breath sounds equal bilaterally. No accessory muscle use. GASTROINTESTINAL: Abdomen soft, non-tender, nondistended. MUSCULOSKELETAL: No cyanosis. right foot dressed. 1+ right-sided edema continues but per pt improving. A/P Problem List: (1) Diabetic foot infection ICD Code: E11.69 - Type 2 diabetes mellitus with other specified complication; L08.9 - Local infection of the skin and subcutaneous tissue, unspecified Status: Acute (2) Cellulitis ICD Code: L03.90 - Cellulitis, unspecified (3) Diabetic neuropathy ICD Code: E11.40 - Type 2 diabetes mellitus with diabetic neuropathy, unspecified (4) HTN (hypertension) ICD Code: I10 - Essential (primary) hypertension (5) Diabetes type 2, controlled ICD Code: E11.9 - Type 2 diabetes mellitus without complications (6) Osteomyelitis of right foot ICD Code: M86.9 - Osteomyelitis, unspecified Assessment and Plan Update in medical management 10/28/16 //Right-sided venous stasis edema. neg US for DVT. improving edema with Home wraps and diuretic. //Hypertension. Systolic blood pressure improved on HCTZ. //Right foot osteomyelitis. s/p right 4,5 digit amputation and 4,5 metatarsal resection w rotational skin plasty pod-0. Management per podiatry. ID consult for assistance in length of abx if needed. CTA w runoff w no significant aortoiliac inflow disease or large vessel runoff disease. 66 year old male with type 2 diabetes and severe peripheral neuropathy, presenting with worsening cellulitis or the right foot, on antibiotics. //Right Foot Cellulitis //Right Foot diabetic foot infection (overlying fifth metatarsal), possible // osteomyelitis of the fifth metatarsal as per MRI Vancomycin Zosyn Probiotic Podiatry following. DM2 //Diabetic Neuropathy Good control at baseline per patient Follow blood sugars Insulin Sliding Scale Diabetic Diet Check A1c=6.3 //Diabetic Neuropathy Contributory Follow clinically Interval outpatient podiatry visits recommended //HTN Continue baseline treatments Follow BP Adjust if needed //Constipation. Resolved after laxatives. Continue laxatives //DVT Prophylaxis Lovenox Discharge Planning when cleared by podiatry and ID Brigitte Pemberton MD Oct 28, 2016 14:28
[2016-10-28 16:00] VITALS: BP 113/57; PULSE 66; RESP 18; TEMP 97.5; O2SAT 91
--- NOTE | 2016-10-28 16:26 | PD.CONS ---
History of Present Illness Service Infectious disease Consult Requested By Dr Pemberton Reason for Consult Evaluate patient with diabetic foot infection, status post amputation, make antibiotic recommendations Primary Care Physician Golden Drake MD Diagnoses: History of Present Illness Patient seen and examined. Records reviewed. Patient is a 66-year-old male, senna to the hospital for further evaluation of a wound on his right foot. He apparently sustained a wound on the lateral aspect of his right foot about 3 weeks ago when his foot hit a concrete. He did not see any bleeding, and he put some topical antibiotic and The foot covered. He started noticing redness and some drainage, so the first when to walk-in clinic about 3 days prior to admission. He was given Bactroban ointment and clindamycin. Patient stated that it was not improving, and looked like it was getting worse, so he went to another walk-in clinic on the day of admission and from there he was advised to go to the emergency room for further evaluation and treatment. He denies any fever or chills or sweats. He has not had any GI, respiratory, or any urinary complaints. Patient states that he does have neuropathy. He has fairly good control on his blood sugars. He does not follow with any podiatry. Since admission patient has not had any fever. He had podiatry and vascular surgery evaluate him. There was no evidence of significant vascular disease. He has evidence of possible osteomyelitis on the fourth and fifth metatarsal of his right foot. Patient underwent surgery today and had amputation of his fourth and fifth digit as well as metatarsal. He had a culture done by the sports anchor at bedside when he first presented, and it has MSSA, Pasteurella, anaerobic gram-positive cocci, and some skin briana. His initial WBC was 13,000, and it's down to normal. Sedimentation rate is 81. C- reactive protein is 17. Infectious disease consultation has been requested to make treatment recommendations. Review of Systems Constitutional: DENIES: Fever, Chills Eyes: DENIES: Eye pain Ears, nose, mouth, throat: DENIES: Nasal discharge, Oral lesions, Throat pain, Ear Pain, Sinus Pain Respiratory: DENIES: Cough, Shortness of breath Cardiovascular: DENIES: Chest pain, Palpitations Gastrointestinal: DENIES: Abdominal pain, Diarrhea, Nausea, Vomiting Genitourinary: DENIES: Hematuria, Dysuria Musculoskeletal: COMPLAINS OF: Joint pain, Joint Swelling Integumentary: DENIES: Rash Neurologic: DENIES: Headache Psychiatric: DENIES: Confusion, Hallucinations Past Family Social History Allergies: Coded Allergies: No Known Allergies (Unverified , 10/21/16) Past Medical History Diabetes mellitus type 2 Diabetic neuropathy Hypertension Past Surgical History None prior to admission Active Ordered Medications Tylenol [place] Dulcolax Hydrochlorothiazide Insulin Lactulose Prinivil MOM MVI Zofran Percocet Zosyn Pravachol Stacey-Colace Senokot Vancomycin Family History COPD in mother Rheumatoid arthritis in father Social History Lives alone, has a dog No tobacco use Occasional Alcohol use No drug abuse Physical Exam Vital Signs Vital Signs Date Time Temp Pulse Resp B/P (MAP) Pulse Ox O2 Delivery O2 Flow Rate FiO2 10/28/16 12:00 95.6 66 18 121/58 (79) 91 10/28/16 09:40 96.5 96 18 134/64 (87) 94 10/28/16 09:24 98.6 Nasal Cannula 2 10/28/16 09:15 63 17 122/60 (80) 97 Nasal Cannula 2 10/28/16 09:00 67 16 130/64 (86) 93 Nasal Cannula 2 10/28/16 08:49 98.6 78 16 124/57 (79) 96 Nasal Cannula 4 10/28/16 06:30 98.4 76 20 145/64 (91) 92 10/28/16 00:00 97.7 74 22 142/64 (90) 95 10/27/16 20:00 98.1 74 22 160/76 (104) 95 Physical Exam GENERAL: Patient is an obese, well-developed male, awake and alert, not in respiratory distress. SKIN: Warm and dry. No generalized rash, no ecchymoses and no evidence of embolic lesions. HEAD: Atraumatic. Normocephalic. No temporal wasting, or tenderness. EYES: [place] conjunctiva. No petechia or hemorrhage. Pupils equal, round and reactive to light. Extraocular movements full and intact. No scleral icterus. No injection or drainage. EARS, NOSE AND THROAT: Nose without bleeding or purulent nasal discharge. No sinus tenderness. Mucous membranes pink and moist. No oral lesions noted. No exudate. No oral thrush. NECK: Trachea midline. Supple and not tender, no meningeal signs CARDIOVASCULAR: Regular rate and rhythm. No murmurs, rubs or gallops heard RESPIRATORY: Clear to auscultation. Breath sounds equal bilaterally. No rales , wheezing or rhonchi ABDOMEN: Soft, non-tender, nondistended. Bowel sounds present and normoactive. No guarding. No rebound. No organomegaly. EXTREMITIES: No clubbing, cyanosis. No joint effusion, has good ROM. No calf tenderness. Well perfused and warm. Has dry intact dressing on his R foot , has improving erythema and edema on his R leg, no lymphangitis seen in his thigh NEUROLOGICAL: Awake and alert. Cranial nerves grossly intact. Motor grossly within normal limits. PSYCHIATRIC: Normal affect, calm and cooperative. LINE: No evidence of infection Laboratory Laboratory Tests Test 10/28/16 05:54 Creatinine 1.44 Estimat Glomerular Filtration Rate 49 Date/Time Source Procedure Growth Status 10/21/16 13:10 Blood Peripheral Aerobic Blood Culture - Final NO GROWTH IN 5 DAYS Complete 10/21/16 13:10 Blood Peripheral Anaerobic Blood Culture - Final NO GROWTH IN 5 DAYS Complete 10/28/16 08:30 Wound Bone Fungal Smear - Final NO FUNGAL ELEMENTS SEEN. Resulted 10/28/16 08:30 Wound Bone Fungal Culture Pending Resulted Result Diagram: 10/27/16 0400 10/28/16 0554 Imaging RADIOLOGY STUDIES/FILMS REVIEWED Lower Extremity Ultrasound 10/25/16 0000 Signed Impressions: Service Date/Time: Tuesday, October 25, 2016 16:01 - CONCLUSION: No evidence of DVT.. Eugene Estrada MD Tumor Localization 10/22/16 0000 Signed Impressions: Service Date/Time: October 12:42 - CONCLUSION: Findings are suspicious for osteomyelitis involving the distal portions of the fourth and fifth distal metatarsal bones of the right foot in addition to fifth proximal phalanx. Torri Lyles MD Aorta w/Runoff CTA 10/22/16 0000 Signed Impressions: Service Date/Time: October 11:06 - CONCLUSION: No significant aortoiliac inflow disease or large vessel runoff disease. Distal and small vessel disease not excludable, Faheem Lane MD Foot X-Ray 10/21/16 0000 Signed Impressions: Service Date/Time: Friday, October 21, 2016 11:27 - CONCLUSION: 1. Soft tissue swelling. 2. Degenerative changes. No acute fracture or cortical irregularity to suggest osteomyelitis Shawn Parkinson MD Foot MRI 10/21/16 0000 Signed Impressions: Service Date/Time: Friday, October 21, 2016 15:51 - CONCLUSION: Abnormal appearance to the 5th digit and surrounding soft tissues with absence of contrast enhancement with sharp demarcation suggesting that this there is devascularized. Robby Ceron MD Assessment and Plan Assessment and Plan IMPRESSION Diabetic foot infection, R, with osteo 4th and 5th digits and MT, S/P amputation - initial C/S with MSSA, pasteurella, anaerobic GPC and skin briana - intraop C/S pending DM Obesity Renal insufficiency, worsening since admission RECOMMENDATION Change to Unasyn and Levaquin UA, urine for eos Follow new C/S Follow path report Course of Abx will depend on results of path (Check margins) and clinical course If margin no infection and wound closed, could possibly use oral Abx on D/C - I would like to ecxamine foot when ok with podiatry - I will discuss with podiatry I will follow along with you Thank you for this consultation Discussed Condition With I explained recommendations to the patient Pau Ortiz MD Oct 28, 2016 16:26
[2016-10-28] MEDS ORDERED: PHARMACY ORDERED LAB ONE (17:45)
[2016-10-28] MEDS: VANCOMYCIN INJ 2,500 MG in SODIUM CHLORID 0.9% 500 ML INJ 500 ML IV SCH (17:59)
[2016-10-28 20:00] VITALS: BP 141/65; PULSE 72; RESP 22; TEMP 99.5; O2SAT 94
--- NOTE | 2016-10-28 21:11 | EKG ---
Date Performed: 10/28/2016 Time Performed: 07:18:04 PTAGE: 66 years EKG: Sinus rhythm WITH FIRST DEGREE AV BLOCK RIGHT BUNDLE BRANCH BLOCK LEFT ANTERIOR FASCICULAR BLOCK ABNORMAL ECG NO PREVIOUS TRACING DOCTOR: Dona Cardoso Interpretating Date/Time 10/28/2016 21:09:29
[2016-10-29] VITALS (7 sets, daily range): BP systolic 128–148; BP diastolic 55–67; PULSE 65–84; RESP 18–22; TEMP 97.4–98.6; O2SAT 90–95
[2016-10-29] MEDS: ACETAMINOPHEN/HYDROcodone 325 MG/5 MG TAB PO PRN (04:12)
[2016-10-29] MEDS: PIPERACIL-TAZO 3.375 GM PREMIX 50 ML IV SCH ×2 (04:12→09:02)
[2016-10-29] MEDS: INSULIN ASPART SUPPLEMENTAL SCALE SQ SCH ×4 (08:00→20:28)
--- NOTE | 2016-10-29 08:17 | MP ---
cc: YESSENIA EWNIG [facility] DATE OF SURGERY: 10/28/2016 PREOPERATIVE DIAGNOSIS Diabetic foot infection with osteomyelitis right fourth and fifth digit and fourth and fifth metatarsals. POSTOPERATIVE DIAGNOSIS Diabetic foot infection with osteomyelitis right fourth and fifth digit and fourth and fifth metatarsals. PROCEDURE PERFORMED Right fourth, fifth digit amputation, fourth and fifth metatarsal resection, incision and drainage, debridement with a rotational skin plasty plantar foot ulcer greater than 10 cm. FINDINGS See operative dictation. SPECIMENS Fourth and fifth digit and fourth and fifth metatarsals to check for proximal margin for osteomyelitis, this is for pathology, deep wound cultures were taken, one of the bone fourth and fifth metatarsal and one of the deep soft tissue. ESTIMATED BLOOD LOSS Less than 30 mL. ANESTHESIA General. DRAINS Quarter inch Iodoform packing. PLAN OF ACTIVITY PACU to monitor wound micro and pathology. HEMOSTASIS Tourniquet wrapped about the patient's ankle for approximately 45 minutes. JUSTIFICATION FOR PROCEDURE This is a 66-year-old diabetic male who was worked up. He apparently has osteomyelitis and a diabetic foot infection. He has responded to some degree of IV antibiotics, however, multiple studies show deep osteomyelitis with adequate circulation. The patient was educated on procedure to remove the nonviable tissue, attempt to resect the osteomyelitis at clean margins. The patient understood that there is complications regarding infections and diabetic foot and ulcers, that he may need revision amputation, possibly leading to limb loss at a later date. No guarantees were given or implied regarding the outcome. Vascular has agreed to proceed with procedure. PROCEDURE IN DETAIL Under mild sedation the patient was brought to the operating room, placed on the operative table in supine position. Following the induction of general anesthesia the right lower extremity was then scrubbed, prepped and draped in the usual aseptic fashion. The foot was elevated, exsanguinated and a Esmarch bandage was wrapped around the patient's ankle. The foot was examined. There is noted to be a large necrotic ulcer of the plantar aspect of the fourth, fifth metatarsal heads. This appeared to measure approximately 5 cm x 4 cm. This was excised and there was noted to be copious amounts of purulent drainage that extended deep to the fourth and fifth MPJ. At this time a lateral incision was made that became an elliptical fishmouth incision that encompassed the base of the fourth and fifth digit full-thickness exposing the fourth and fifth metatarsal heads, amputating the digits. Next, subperiosteal dissection took place and the fourth and fifth metatarsals were resected at the mid diaphyseal portion. Deep culture was taken at this point. The margins were marked black ink and sent for pathological analysis. Further incision and drainage took place into the deep foot and plantar spaces. It appeared to stop at the level of the distal forefoot. The wound was then flushed with copious amounts of normal saline. All nonviable tissue was resected utilizing sharp scissors as well as rongeur. Bovie and ligation of structures took place as deemed appropriate. There appeared to be viable tissue. At this time a resection of deep tissue, plantar fat pad and necrotic skin margins took place allowing for a rotation skin plasty of the plantar foot meeting with the dorsal flap of the forefoot. Deep suturing took place utilizing Vicryl. Skin was closed utilizing nylon packing, was placed within the wound of the anterior medial margin. Upon relieving the tourniquet there was good hyperemic response to the dorsal and plantar flap. There appeared to be intact circulation, capillary refill time to the first, second and third digit. A bulky bandage was placed. The patient was transferred from OR to PACU with all vital signs stable. Will change the bandage within the next 24-48 hours and of course wait on micro and pathology. MARY Rosas/SANDOVAL /8:51 AM /7:56 AM
[2016-10-29] MEDS: DOCUSATE SODIUM 50 MG/SENNA 8.6 MG TAB PO SCH ×2 (08:59→20:27)
[2016-10-29] MEDS: SODIUM CHLORIDE 0.9% FLUSH 10 ML FLUSH IV FLUSH SCH ×2 (08:59→20:27)
[2016-10-29] MEDS: HYDROCHLOROTHIAZIDE 12.5 MG CAP PO SCH (09:00)
[2016-10-29] MEDS: PRAVASTATIN SOD 20 MG TAB PO SCH (09:00)
[2016-10-29] MEDS: MULTIVITAMIN TAB PO SCH (09:00)
[2016-10-29] MEDS: LISINOPRIL 10 MG TAB PO SCH (09:01)
[2016-10-29] MEDS: ACETAMINOPHEN 325 MG TAB PO PRN (09:09)
[2016-10-29] MEDS ORDERED: AMPICILLIN-SULBACTAM INJ 3 GM in SODIUM CHLORIDE 0.9% INJ 100 ML IV SCH (12:30)
--- NOTE | 2016-10-29 12:34 | HHI.IDPN ---
Subjective Subjective Remarks Patient is a 66-year-old male, senna to the hospital for further evaluation of a wound on his right foot. He apparently sustained a wound on the lateral aspect of his right foot about 3 weeks ago when his foot hit a concrete. He did not see any bleeding, and he put some topical antibiotic and The foot covered. He started noticing redness and some drainage, so the first when to walk-in clinic about 3 days prior to admission. He was given Bactroban ointment and clindamycin. Patient stated that it was not improving, and looked like it was getting worse, so he went to another walk-in clinic on the day of admission and from there he was advised to go to the emergency room for further evaluation and treatment. He denies any fever or chills or sweats. He has not had any GI, respiratory, or any urinary complaints. Patient states that he does have neuropathy. He has fairly good control on his blood sugars. He does not follow with any podiatry. Since admission patient has not had any fever. He had podiatry and vascular surgery evaluate him. There was no evidence of significant vascular disease. He has evidence of possible osteomyelitis on the fourth and fifth metatarsal of his right foot. Patient underwent surgery today and had amputation of his fourth and fifth digit as well as metatarsal. He had a culture done by the duralumin metalworker at bedside when he first presented, and it has MSSA, Pasteurella, anaerobic gram-positive cocci, and some skin briana. His initial WBC was 13,000, and it's down to normal. Sedimentation rate is 81. C- reactive protein is 17. Infectious disease consultation has been requested to make treatment recommendations. Notes reviewed Temps ok Podiatry ok for me to take dressing off new C/S pending Antibiotics Unasyn Levaquin Lines PIV Past Medical History Diabetes mellitus type 2 Diabetic neuropathy Hypertension Allergies: Coded Allergies: No Known Allergies (Unverified , 10/21/16) Objective . Vital Signs Date Time Temp Pulse Resp B/P (MAP) Pulse Ox O2 Delivery O2 Flow Rate FiO2 10/29/16 08:50 93 21 10/29/16 08:00 97.6 70 19 148/63 (91) 95 10/29/16 04:00 97.9 69 22 128/55 (79) 93 10/29/16 00:00 98.6 75 22 148/67 (94) 94 10/28/16 20:00 99.5 72 22 141/65 (90) 94 10/28/16 16:00 97.5 66 18 113/57 (75) 91 10/29/16 10/29/16 10/30/16 15:00 23:00 07:00 Intake Total 50 ml Balance 50 ml IV Total 50 ml . Laboratory Tests Test 10/28/16 05:54 10/29/16 04:47 Creatinine 1.44 MG/DL 2.39 MG/DL Estimat Glomerular Filtration Rate 49 ML/MIN 27 ML/MIN Microbiology Date/Time Source Procedure Growth Status 10/28/16 08:30 Wound Bone Fungal Smear - Final NO FUNGAL ELEMENTS SEEN. Resulted 10/28/16 08:30 Wound Bone Fungal Culture Pending Resulted 10/28/16 08:30 Wound Foot Gram Stain - Final Resulted 10/28/16 08:30 Wound Foot Wound Culture Pending Resulted 10/28/16 08:30 Wound Foot Fungal Smear - Final NO FUNGAL ELEMENTS SEEN. Resulted 10/28/16 08:30 Wound Foot Fungal Culture Pending Resulted 10/28/16 08:30 Wound Foot Gram Stain - Final Resulted 10/28/16 08:30 Wound Foot Wound Culture Pending Resulted Imaging Last Impressions Lower Extremity Ultrasound 10/25/16 0000 Signed Impressions: Service Date/Time: Tuesday, October 25, 2016 16:01 - CONCLUSION: No evidence of DVT.. Eugene Estrada MD Tumor Localization 10/22/16 0000 Signed Impressions: Service Date/Time: October 12:42 - CONCLUSION: Findings are suspicious for osteomyelitis involving the distal portions of the fourth and fifth distal metatarsal bones of the right foot in addition to fifth proximal phalanx. Torri Lyles MD Aorta w/Runoff CTA 10/22/16 0000 Signed Impressions: Service Date/Time: October 11:06 - CONCLUSION: No significant aortoiliac inflow disease or large vessel runoff disease. Distal and small vessel disease not excludable, Faheem Lane MD Foot X-Ray 10/21/16 0000 Signed Impressions: Service Date/Time: Friday, October 21, 2016 11:27 - CONCLUSION: 1. Soft tissue swelling. 2. Degenerative changes. No acute fracture or cortical irregularity to suggest osteomyelitis Shawn D. Klioze, MD Foot MRI 10/21/16 0000 Signed Impressions: Service Date/Time: Friday, October 21, 2016 15:51 - CONCLUSION: Abnormal appearance to the 5th digit and surrounding soft tissues with absence of contrast enhancement with sharp demarcation suggesting that this there is devascularized. Robby Ceron MD Physical Exam GENERAL: awake and alert, not in respiratory distress. SKIN: Warm and dry. No generalized rash, no ecchymoses and no evidence of embolic lesions. HEAD: Atraumatic. Normocephalic. No temporal wasting, or tenderness. EYES: [place] conjunctiva. No petechia or hemorrhage. No scleral icterus. No injection or drainage. EARS, NOSE AND THROAT: Nose without bleeding or purulent nasal discharge. No sinus tenderness. Mucous membranes pink and moist. No oral lesions noted. No exudate. No oral thrush. NECK: Trachea midline. Supple and not tender, no meningeal signs CARDIOVASCULAR: Regular rate and rhythm. No murmurs, rubs or gallops heard RESPIRATORY: Clear to auscultation. Breath sounds equal bilaterally. No rales , wheezing or rhonchi ABDOMEN: Soft, non-tender, nondistended. Bowel sounds present and normoactive. No guarding. No rebound. No organomegaly. EXTREMITIES: No clubbing, cyanosis. No joint effusion, has good ROM. No calf tenderness. Well perfused and warm. R foot - incision dry, mild erythema on dorsum of foot, edema improved. No purulence. Plantar foot ok, no redness or tenderness, or drainage. Improving edema on his R leg, redness almost gone, no lymphangitis seen in his thigh NEUROLOGICAL: Awake and alert. Cranial nerves grossly intact. Motor grossly within normal limits. PSYCHIATRIC: Normal affect, calm and cooperative. LINE: No evidence of infection Assessment & Plan Remarks IMPRESSION Diabetic foot infection, R, with osteo 4th and 5th digits and MT, S/P amputation - initial C/S with MSSA, pasteurella, anaerobic GPC and skin briana - intraop C/S pending DM Obesity Renal insufficiency, worsening since admission - ?due to contrast, ?Abx RECOMMENDATION Change to Unasyn and Levaquin UA, urine for eos Follow new C/S Follow path report Course of Abx will depend on results of path (Check margins) and clinical course If margin no infection and wound closed, could possibly use oral Abx on D/C Monitor progress Explained plan to patient Pau Ortiz MD Oct 29, 2016 12:34
--- NOTE | 2016-10-29 13:51 | HHI.PR ---
Subjective Remarks Pt feels ok, no pain, hopeful to be discharged soon and doesn't want to go to rehab and would like home health instead. no nausea or vomiting, no chest pains or sob Objective Vitals Vital Signs Date Time Temp Pulse Resp B/P (MAP) Pulse Ox O2 Delivery O2 Flow Rate FiO2 10/29/16 12:00 97.4 65 19 135/63 (87) 95 10/29/16 08:50 93 21 10/29/16 08:00 97.6 70 19 148/63 (91) 95 10/29/16 04:00 97.9 69 22 128/55 (79) 93 10/29/16 00:00 98.6 75 22 148/67 (94) 94 10/28/16 20:00 99.5 72 22 141/65 (90) 94 10/28/16 16:00 97.5 66 18 113/57 (75) 91 I/O 10/28/16 10/28/16 10/28/16 10/29/16 10/29/16 10/29/16 07:00 15:00 23:00 07:00 15:00 23:00 Intake Total 740 ml 600 ml 1030 ml 470 ml 170 ml Output Total 30 ml 700 ml Balance 740 ml 570 ml 1030 ml -230 ml 170 ml Intake Oral 240 ml 480 ml 320 ml 120 ml IV Total 500 ml 100 ml 550 ml 150 ml 50 ml Other 500 ml Output Urine Total 700 ml Estimated Blood Loss 30 ml # Voids 2 1 # Bowel Movements 0 0 0 Result Diagram: 10/27/16 0400 10/29/16 0447 Imaging Last Impressions Lower Extremity Ultrasound 10/25/16 0000 Signed Impressions: Service Date/Time: Tuesday, October 25, 2016 16:01 - CONCLUSION: No evidence of DVT.. Eugene Estrada MD Tumor Localization 10/22/16 0000 Signed Impressions: Service Date/Time: October 12:42 - CONCLUSION: Findings are suspicious for osteomyelitis involving the distal portions of the fourth and fifth distal metatarsal bones of the right foot in addition to fifth proximal phalanx. Torri Lyles MD Aorta w/Runoff CTA 10/22/16 0000 Signed Impressions: Service Date/Time: October 11:06 - CONCLUSION: No significant aortoiliac inflow disease or large vessel runoff disease. Distal and small vessel disease not excludable, Faheem Lane MD Foot X-Ray 10/21/16 0000 Signed Impressions: Service Date/Time: Friday, October 21, 2016 11:27 - CONCLUSION: 1. Soft tissue swelling. 2. Degenerative changes. No acute fracture or cortical irregularity to suggest osteomyelitis Shawn Parkinson MD Foot MRI 10/21/16 0000 Signed Impressions: Service Date/Time: Friday, October 21, 2016 15:51 - CONCLUSION: Abnormal appearance to the 5th digit and surrounding soft tissues with absence of contrast enhancement with sharp demarcation suggesting that this there is devascularized. Robby Ceron MD Objective Remarks GENERAL: appears comfortable. laying in bed NECK: trachea midline. CARDIOVASCULAR: Regular rate and rhythm without murmurs RESPIRATORY: Breath sounds equal bilaterally. No accessory muscle use. GASTROINTESTINAL: Abdomen soft, non-tender, nondistended. MUSCULOSKELETAL: No cyanosis. right foot dressed. 1+ right-sided edema continues but per pt improving. A/P Problem List: (1) Diabetic foot infection ICD Code: E11.69 - Type 2 diabetes mellitus with other specified complication; L08.9 - Local infection of the skin and subcutaneous tissue, unspecified Status: Acute (2) Cellulitis ICD Code: L03.90 - Cellulitis, unspecified (3) Diabetic neuropathy ICD Code: E11.40 - Type 2 diabetes mellitus with diabetic neuropathy, unspecified (4) HTN (hypertension) ICD Code: I10 - Essential (primary) hypertension (5) Diabetes type 2, controlled ICD Code: E11.9 - Type 2 diabetes mellitus without complications (6) Osteomyelitis of right foot ICD Code: M86.9 - Osteomyelitis, unspecified Assessment and Plan Update in medical management 10/29/16 //Right-sided venous stasis edema. neg US for DVT. improving edema with Home wraps and diuretic. //Hypertension. Systolic blood pressure improved on HCTZ. //Right foot osteomyelitis. s/p right 4,5 digit amputation and 4,5 metatarsal resection w rotational skin plasty pod-0. Management per podiatry. ID following , has switched abx to unasyn and levaquin. Monitor creatinine levels. f/u intraop cultures. CTA w runoff w no significant aortoiliac inflow disease or large vessel runoff disease. Pt wishes to go home w home health. CM aware. PT consulted for d/c planning. awaiting final recs from podiatry and ID 66 year old male with type 2 diabetes and severe peripheral neuropathy, presenting with worsening cellulitis or the right foot, on antibiotics. //Right Foot Cellulitis //Right Foot diabetic foot infection (overlying fifth metatarsal), possible // osteomyelitis of the fifth metatarsal as per MRI Vancomycin Zosyn Probiotic Podiatry following. DM2 //Diabetic Neuropathy Good control at baseline per patient Follow blood sugars Insulin Sliding Scale Diabetic Diet Check A1c=6.3 //Diabetic Neuropathy Contributory Follow clinically Interval outpatient podiatry visits recommended //HTN Continue baseline treatments Follow BP Adjust if needed //Constipation. Resolved after laxatives. Continue laxatives //DVT Prophylaxis Lovenox Discharge Planning when cleared by podiatry and ID Brigitte Pemberton MD Oct 29, 2016 13:51
[2016-10-29] MEDS: LEVOFLOXACIN 750 MG TAB PO SCH (14:21)
[2016-10-29] MEDS: ENOXAPARIN SODIUM 40 MG/0.4 ML SYRINGE SQ SCH (14:23)
[2016-10-29] MEDS: AMPICILLIN-SULBACTAM INJ 3 GM in SODIUM CHLORIDE 0.9% INJ 100 ML IV SCH (20:27)
[2016-10-30] VITALS: BP 126/58; PULSE 85; RESP 18; TEMP 97; O2SAT 93
[2016-10-30] MEDS: AMPICILLIN-SULBACTAM INJ 3 GM in SODIUM CHLORIDE 0.9% INJ 100 ML IV SCH ×3 (04:17→19:48)
--- NOTE | 2016-10-30 07:16 | PD.POD ---
Subjective Pain scale used: 0-10 numeric scale Pain score: 3 Remarks Right foot with minimal pain Past Med/Surg/Social History Social History Smoking Status: Never Smoker Objective Vital Signs Vital Signs Date Time Temp Pulse Resp B/P (MAP) Pulse Ox O2 Delivery O2 Flow Rate FiO2 10/30/16 00:00 97.0 85 18 126/58 (80) 93 10/29/16 20:00 97.7 84 18 139/63 (88) 90 10/29/16 16:00 98.2 70 20 146/67 (93) 95 10/29/16 12:00 97.4 65 19 135/63 (87) 95 10/29/16 08:50 93 21 10/29/16 08:00 97.6 70 19 148/63 (91) 95 Coded Allergies: No Known Allergies (Unverified , 10/21/16) Medications and IVs Administered Medications Medications (Trade) Dose Ordered Sig/Saeed Route PRN Reason Start Time Stop Time Status Last Admin Dose Admin Sodium Chloride (NS Flush) 2 ml BID IV FLUSH 10/21/16 21:00 10/29/16 20:27 Acetaminophen (Tylenol) 650 mg Q4H PRN PO TEMP > 100.4 10/21/16 12:45 10/29/16 09:09 Ondansetron HCl (Zofran Inj) 4 mg Q6H PRN IVP NAUSEA OR VOMITING 10/21/16 12:45 10/29/16 17:21 Enoxaparin Sodium (Lovenox Inj) 40 mg Q24H SQ 10/21/16 14:00 Future hold 10/29/16 14:23 Acetaminophen/ Hydrocodone Bitart ([place] 5-325 Mg) 1 tab Q4H PRN PO PAIN SCALE 3 TO 5 10/21/16 12:45 10/29/16 04:12 Lisinopril (Prinivil) 10 mg DAILY PO 10/22/16 09:00 10/29/16 09:01 Pravastatin Sodium (Pravachol) 20 mg DAILY PO 10/22/16 09:00 10/29/16 09:00 Multivitamins (Theragran) 1 tab DAILY PO 10/22/16 09:00 10/29/16 09:00 Senna/Docusate Sodium (Stacey-Colace) 1 tab BID PO 10/25/16 09:00 10/25/16 08:26 Hydrochlorothiazide (Microzide) 25 mg DAILY PO 10/27/16 09:00 10/29/16 09:00 Levofloxacin (Levaquin) 750 mg DAILY PO 10/29/16 14:00 10/29/16 14:21 Ampicillin Sodium/ Sulbactam Sodium 3 gm/Sodium Chloride 100 ml @ 200 mls/hr Q8H IV 10/29/16 21:00 10/30/16 04:17 Other Results Micro and path from surgery pending Physical Exam Remarks Right foot lateral amp site with sutures intact plantar partial opening noted decreased redness no ischemic changes minimal bleeding noted CFT intact to digits 1 2 3, sensation absent below ankle. Assessment & Plan A/P Right DM foot infection, OM, Necrotic ulcer. SP Right 4 5 digit amp and 4 5 metatarsal resection- 10-28 Packing removed, bandage changed, PT ordered, non WB right foot. Awaiting micro and path, continue ABX per ID, no further surgery at this point, stable for DC if passes PT and surgical micro/ path results. Will FU 2-3 days. Jayro Ortega DPM Oct 30, 2016 07:16
[2016-10-30 08:00] VITALS: BP 125/58; PULSE 81; RESP 19; TEMP 99.7; O2SAT 89
[2016-10-30] MEDS: INSULIN ASPART SUPPLEMENTAL SCALE SQ SCH ×4 (08:00→19:49)
[2016-10-30] MEDS: DOCUSATE SODIUM 50 MG/SENNA 8.6 MG TAB PO SCH ×2 (09:00→19:49)
[2016-10-30] MEDS: SODIUM CHLORIDE 0.9% FLUSH 10 ML FLUSH IV FLUSH SCH ×2 (09:00→19:49)
[2016-10-30] MEDS: PRAVASTATIN SOD 20 MG TAB PO SCH (09:00)
[2016-10-30] MEDS: LISINOPRIL 10 MG TAB PO SCH (09:41)
[2016-10-30] MEDS: HYDROCHLOROTHIAZIDE 12.5 MG CAP PO SCH (09:41)
[2016-10-30] MEDS: LEVOFLOXACIN 750 MG TAB PO SCH (09:42)
[2016-10-30] MEDS: MULTIVITAMIN TAB PO SCH (09:42)
[2016-10-30 10:13] VITALS: O2SAT 90
[2016-10-30 12:00] VITALS: BP 136/63; PULSE 80; RESP 18; TEMP 98.1; O2SAT 94
--- NOTE | 2016-10-30 12:41 | HHI.IDPN ---
Subjective Subjective Remarks Patient is a 66-year-old male, senna to the hospital for further evaluation of a wound on his right foot. He apparently sustained a wound on the lateral aspect of his right foot about 3 weeks ago when his foot hit a concrete. He did not see any bleeding, and he put some topical antibiotic and The foot covered. He started noticing redness and some drainage, so the first when to walk-in clinic about 3 days prior to admission. He was given Bactroban ointment and clindamycin. Patient stated that it was not improving, and looked like it was getting worse, so he went to another walk-in clinic on the day of admission and from there he was advised to go to the emergency room for further evaluation and treatment. He denies any fever or chills or sweats. He has not had any GI, respiratory, or any urinary complaints. Patient states that he does have neuropathy. He has fairly good control on his blood sugars. He does not follow with any podiatry. Since admission patient has not had any fever. He had podiatry and vascular surgery evaluate him. There was no evidence of significant vascular disease. He has evidence of possible osteomyelitis on the fourth and fifth metatarsal of his right foot. Patient underwent surgery today and had amputation of his fourth and fifth digit as well as metatarsal. He had a culture done by the computer numerical control operator at bedside when he first presented, and it has MSSA, Pasteurella, anaerobic gram-positive cocci, and some skin briana. His initial WBC was 13,000, and it's down to normal. Sedimentation rate is 81. C- reactive protein is 17. Infectious disease consultation has been requested to make treatment recommendations. Notes reviewed Temps ok One loose stool today No abdominal pain No N/V Voiding ok Path report pending OR C/S negative so far Creatinine continues to rise Antibiotics Unasyn Levaquin Lines PIV Past Medical History Diabetes mellitus type 2 Diabetic neuropathy Hypertension Allergies: Coded Allergies: No Known Allergies (Unverified , 10/21/16) Objective . Vital Signs Date Time Temp Pulse Resp B/P (MAP) Pulse Ox O2 Delivery O2 Flow Rate FiO2 10/30/16 10:13 90 21 10/30/16 08:00 99.7 81 19 125/58 (80) 89 10/30/16 00:00 97.0 85 18 126/58 (80) 93 10/29/16 20:00 97.7 84 18 139/63 (88) 90 10/29/16 16:00 98.2 70 20 146/67 (93) 95 . Laboratory Tests Test 10/29/16 04:47 10/30/16 07:55 Creatinine 2.39 MG/DL 2.98 MG/DL Estimat Glomerular Filtration Rate 27 ML/MIN 21 ML/MIN Microbiology Date/Time Source Procedure Growth Status 10/28/16 08:30 Wound Bone Fungal Smear - Final NO FUNGAL ELEMENTS SEEN. Resulted 10/28/16 08:30 Wound Bone Fungal Culture Pending Resulted 10/28/16 08:30 Wound Foot Gram Stain - Final Resulted 10/28/16 08:30 Wound Foot Wound Culture - Preliminary NO GROWTH IN 24 HOURS. Resulted 10/28/16 08:30 Wound Foot Fungal Smear - Final NO FUNGAL ELEMENTS SEEN. Resulted 10/28/16 08:30 Wound Foot Fungal Culture Pending Resulted 10/28/16 08:30 Wound Foot Gram Stain - Final Resulted 10/28/16 08:30 Wound Foot Wound Culture - Preliminary NO GROWTH IN 24 HOURS. Resulted Imaging Last Impressions Lower Extremity Ultrasound 10/25/16 0000 Signed Impressions: Service Date/Time: Tuesday, October 25, 2016 16:01 - CONCLUSION: No evidence of DVT.. Eugene Estrada MD Tumor Localization 10/22/16 0000 Signed Impressions: Service Date/Time: October 12:42 - CONCLUSION: Findings are suspicious for osteomyelitis involving the distal portions of the fourth and fifth distal metatarsal bones of the right foot in addition to fifth proximal phalanx. K. Brandan Lyles MD Aorta w/Runoff CTA 10/22/16 0000 Signed Impressions: Service Date/Time: October 11:06 - CONCLUSION: No significant aortoiliac inflow disease or large vessel runoff disease. Distal and small vessel disease not excludable, Faheem Lane MD Foot X-Ray 10/21/16 0000 Signed Impressions: Service Date/Time: Friday, October 21, 2016 11:27 - CONCLUSION: 1. Soft tissue swelling. 2. Degenerative changes. No acute fracture or cortical irregularity to suggest osteomyelitis Shawn Parkinson MD Foot MRI 10/21/16 0000 Signed Impressions: Service Date/Time: Friday, October 21, 2016 15:51 - CONCLUSION: Abnormal appearance to the 5th digit and surrounding soft tissues with absence of contrast enhancement with sharp demarcation suggesting that this there is devascularized. Robby Ceron MD Physical Exam GENERAL: awake and alert, not in respiratory distress. SKIN: Warm and dry. No generalized rash, no ecchymoses and no evidence of embolic lesions. HEAD: Atraumatic. Normocephalic. No temporal wasting, or tenderness. EYES: [place] conjunctiva. No petechia or hemorrhage. No scleral icterus. No injection or drainage. EARS, NOSE AND THROAT: Nose without bleeding or purulent nasal discharge. No sinus tenderness. Mucous membranes pink and moist. No oral lesions noted. No exudate. No oral thrush. NECK: Trachea midline. Supple and not tender, no meningeal signs CARDIOVASCULAR: Regular rate and rhythm. No murmurs, rubs or gallops heard RESPIRATORY: Clear to auscultation. Breath sounds equal bilaterally. No rales , wheezing or rhonchi ABDOMEN: Soft, non-tender, nondistended. Bowel sounds present and normoactive. No guarding. No rebound. No organomegaly. EXTREMITIES: No clubbing, cyanosis. No joint effusion, has good ROM. No calf tenderness. Well perfused and warm. R foot - with dry and intact dressing. Improving edema on his R leg, redness almost gone, no lymphangitis seen in his thigh NEUROLOGICAL: Awake and alert. Cranial nerves grossly intact. Motor grossly within normal limits. PSYCHIATRIC: Normal affect, calm and cooperative. LINE: No evidence of infection Assessment & Plan Remarks IMPRESSION Diabetic foot infection, R, with osteo 4th and 5th digits and MT, S/P amputation - initial C/S with MSSA, pasteurella, anaerobic GPC and skin briana - intraop C/S pending DM Obesity Renal insufficiency, worsening since admission - ?due to contrast, ?Abx RECOMMENDATION Continue Unasyn and Levaquin Renal US Follow creatinine UA, urine for eos Follow new C/S - will have attending check on C/S and call ID special education curriculum specialist if with any questions Follow path report Course of Abx will depend on results of path (Check margins) and clinical course If margin no infection and wound closed, could possibly use oral Abx on D/C Monitor progress Explained plan to patient Pau Ortiz MD Oct 30, 2016 12:41
[2016-10-30] MEDS ORDERED: WALKER WHEELS/F1 MIS (13:03)
[2016-10-30 13:45] LABS: BLOOD, URINE SMALL (NEG); GLUCOSE,URINE NEG (NEG); KETONE, URINE 10 mg/dL (NEG); MUCUS URINE FEW /lpf (OCC); NITRITE,URINE NEG (NEG); URINE COLOR YELLOW (YELLW/STRAW)
[2016-10-30] MEDS: ENOXAPARIN SODIUM 40 MG/0.4 ML SYRINGE SQ SCH (14:00)
--- NOTE | 2016-10-30 15:22 | HHI.PR ---
Subjective Remarks feels well, no pain, no CP/SOB/N/V states he urinates fine Objective Vitals Vital Signs Date Time Temp Pulse Resp B/P (MAP) Pulse Ox O2 Delivery O2 Flow Rate FiO2 10/30/16 12:00 98.1 80 18 136/63 (87) 94 10/30/16 10:13 90 21 10/30/16 08:00 99.7 81 19 125/58 (80) 89 10/30/16 00:00 97.0 85 18 126/58 (80) 93 10/29/16 20:00 97.7 84 18 139/63 (88) 90 10/29/16 16:00 98.2 70 20 146/67 (93) 95 I/O 10/29/16 10/29/16 10/29/16 10/30/16 10/30/16 10/30/16 07:00 15:00 23:00 07:00 15:00 23:00 Intake Total 470 ml 170 ml 1060 ml 200 ml Output Total 700 ml 800 ml Balance -230 ml 170 ml 260 ml 200 ml Intake Oral 320 ml 120 ml 960 ml IV Total 150 ml 50 ml 100 ml 200 ml Output Urine Total 700 ml 800 ml # Bowel Movements 0 0 Result Diagram: 10/27/16 0400 10/30/16 0755 Imaging Last Impressions Lower Extremity Ultrasound 10/25/16 0000 Signed Impressions: Service Date/Time: Tuesday, October 25, 2016 16:01 - CONCLUSION: No evidence of DVT.. Eugene Estrada MD Tumor Localization 10/22/16 0000 Signed Impressions: Service Date/Time: October 12:42 - CONCLUSION: Findings are suspicious for osteomyelitis involving the distal portions of the fourth and fifth distal metatarsal bones of the right foot in addition to fifth proximal phalanx. Torri Lyles MD Aorta w/Runoff CTA 10/22/16 0000 Signed Impressions: Service Date/Time: October 11:06 - CONCLUSION: No significant aortoiliac inflow disease or large vessel runoff disease. Distal and small vessel disease not excludable, Faheem Lane MD Foot X-Ray 10/21/16 0000 Signed Impressions: Service Date/Time: Friday, October 21, 2016 11:27 - CONCLUSION: 1. Soft tissue swelling. 2. Degenerative changes. No acute fracture or cortical irregularity to suggest osteomyelitis Shawn Parkinson MD Foot MRI 10/21/16 0000 Signed Impressions: Service Date/Time: Friday, October 21, 2016 15:51 - CONCLUSION: Abnormal appearance to the 5th digit and surrounding soft tissues with absence of contrast enhancement with sharp demarcation suggesting that this there is devascularized. Robby Ceron MD Objective Remarks GENERAL: appears comfortable. sitting up in chair NECK: trachea midline. CARDIOVASCULAR: Regular rate and rhythm without murmurs RESPIRATORY: Breath sounds equal bilaterally. No accessory muscle use. GASTROINTESTINAL: Abdomen soft, non-tender, nondistended. MUSCULOSKELETAL: No cyanosis. right foot dressed. 1+ right-sided edema continues but per pt improving. A/P Problem List: (1) Diabetic foot infection ICD Code: E11.69 - Type 2 diabetes mellitus with other specified complication; L08.9 - Local infection of the skin and subcutaneous tissue, unspecified Status: Acute (2) Cellulitis ICD Code: L03.90 - Cellulitis, unspecified (3) Diabetic neuropathy ICD Code: E11.40 - Type 2 diabetes mellitus with diabetic neuropathy, unspecified (4) HTN (hypertension) ICD Code: I10 - Essential (primary) hypertension (5) Diabetes type 2, controlled ICD Code: E11.9 - Type 2 diabetes mellitus without complications (6) Osteomyelitis of right foot ICD Code: M86.9 - Osteomyelitis, unspecified Assessment and Plan Update in medical management 10/30/16 //Right-sided venous stasis edema. neg US for DVT. improving edema with Home wraps and diuretic. //Hypertension. Systolic blood pressure improved on HCTZ. //Right foot osteomyelitis. s/p right 4,5 digit amputation and 4,5 metatarsal resection w rotational skin plasty pod-2. Management per podiatry. ID following , on unasyn and levaquin. Monitor creatinine levels as they are trending up today 2.98. f/u intraop cultures. CTA w runoff w no significant aortoiliac inflow disease or large vessel runoff disease. Pt wishes to go home w home health. CM aware. PT following, recommends bariatric wheelchair awaiting final recs from ID non WB right foot. Awaiting micro and path 66 year old male with type 2 diabetes and severe peripheral neuropathy, presenting with worsening cellulitis or the right foot, on antibiotics. //Right Foot Cellulitis //Right Foot diabetic foot infection (overlying fifth metatarsal), possible // osteomyelitis of the fifth metatarsal as per MRI Vancomycin Zosyn Probiotic Podiatry following. DM2 //Diabetic Neuropathy Good control at baseline per patient Follow blood sugars Insulin Sliding Scale Diabetic Diet Check A1c=6.3 //Diabetic Neuropathy Contributory Follow clinically Interval outpatient podiatry visits recommended //HTN Continue baseline treatments Follow BP Adjust if needed //Constipation. Resolved after laxatives. Continue laxatives //DVT Prophylaxis Lovenox Discharge Planning awaiting final recs from ID and for creatinine to go back to baseline. consider nephrology consult if worsening. Brigitte Pemberton MD Oct 30, 2016 15:22
[2016-10-30 16:00] VITALS: BP 168/75; PULSE 80; RESP 18; TEMP 97.2; O2SAT 93
--- NOTE | 2016-10-30 16:17 | RADRPT ---
EXAM DATE/TIME: 10/30/2016 14:01 [facility] COMPARISON: US LEG RIGHT VENOUS DOPPLER, October 25, 2016, 16:01. INDICATIONS : Abnormal labs. MEDICAL HISTORY : Hypercholesterolemia. Anticoagulant therapy. Hypertension. Diabetes. Neuropathy. Cellulitis. Foot infection. Osteomyelitis. SURGICAL HISTORY : Tonsillectomy. Cataract surgery. Hernia repair. ENCOUNTER: Initial ACUITY: 1 day PAIN SCORE: 0/10 LOCATION: Bilateral flank MEASUREMENTS: RIGHT KIDNEY: 12.6 x 6.1 x 5.5 cm LEFT KIDNEY: 13.2 x 6.4 x 5.5 cm FINDINGS: RIGHT KIDNEY: Renal cortex is normal in thickness and echotexture. No hydronephrosis, stone, or mass. LEFT KIDNEY: Renal cortex is normal in thickness and echotexture. No hydronephrosis, stone, or mass. BLADDER: Within normal limits given the degree of distension. CONCLUSION: Negative examination. Manjit Calloway MD on October 30, 2016 at 16:14 Board Certified Radiologist. This report was verified electronically.
[2016-10-30 20:00] VITALS: BP 142/66; PULSE 77; RESP 18; TEMP 98.6; O2SAT 95
[2016-10-31] MEDS: AMPICILLIN-SULBACTAM INJ 3 GM in SODIUM CHLORIDE 0.9% INJ 100 ML IV SCH ×3 (04:40→20:51)
[2016-10-31 05:13] LABS: POTASSIUM 3.9 MEQ/L (3.5-5.1)
[2016-10-31 08:00] VITALS: BP 160/80; PULSE 71; RESP 18; TEMP 96.9; O2SAT 96
[2016-10-31] MEDS: INSULIN ASPART SUPPLEMENTAL SCALE SQ SCH ×4 (08:00→20:52)
[2016-10-31] MEDS: DOCUSATE SODIUM 50 MG/SENNA 8.6 MG TAB PO SCH ×2 (08:12→20:51)
[2016-10-31] MEDS: MULTIVITAMIN TAB PO SCH (08:12)
[2016-10-31] MEDS: HYDROCHLOROTHIAZIDE 12.5 MG CAP PO SCH (08:13)
[2016-10-31] MEDS: PRAVASTATIN SOD 20 MG TAB PO SCH (08:13)
[2016-10-31] MEDS: LISINOPRIL 10 MG TAB PO SCH (08:13)
[2016-10-31] MEDS: SODIUM CHLORIDE 0.9% FLUSH 10 ML FLUSH IV FLUSH SCH ×2 (08:14→20:51)
--- NOTE | 2016-10-31 11:04 | PD.POD ---
Subjective Pain scale used: 0-10 numeric scale Pain score: 3 Remarks Right foot with minimal pain Past Med/Surg/Social History Social History Smoking Status: Never Smoker Objective Vital Signs Vital Signs Date Time Temp Pulse Resp B/P (MAP) Pulse Ox O2 Delivery O2 Flow Rate FiO2 10/31/16 08:00 96.9 71 18 160/80 (106) 96 10/30/16 20:00 98.6 77 18 142/66 (91) 95 10/30/16 16:00 97.2 80 18 168/75 (106) 93 10/30/16 12:00 98.1 80 18 136/63 (87) 94 Coded Allergies: No Known Allergies (Unverified , 10/21/16) Physical Exam Remarks Right foot lateral amp site with sutures intact plantar partial opening noted decreased redness no ischemic changes minimal bleeding noted CFT intact to digits 1 2 3, sensation absent below ankle. Assessment & Plan A/P Right DM foot infection, OM, Necrotic ulcer. SP Right 4 5 digit amp and 4 5 metatarsal resection- 9-13 Bandage changed, Prefer 1-2 days more of IV if kidneys can tolerate then DC home for out pt FU, please see orders ok to FU out pt at this point, margins appear clear on path. Jayro Ortega DPM Oct 31, 2016 11:04
[2016-10-31 12:00] VITALS: BP 140/77; PULSE 64; RESP 18; TEMP 97.6; O2SAT 96
[2016-10-31] MEDS: SODIUM CHLOR 0.9% 1000 ML INJ 1,000 ML IV SCH (12:53)
[2016-10-31] MEDS: ENOXAPARIN SODIUM 40 MG/0.4 ML SYRINGE SQ SCH (12:54)
[2016-10-31] MEDS: hydrALAZINE HCL 10 MG TAB PO SCH ×2 (12:55→20:52)
--- NOTE | 2016-10-31 13:24 | HHI.PR ---
Subjective Remarks Pt feels ok, denies any CP/SOB/N/V Has been drinking plenty of water and urinating frequently due to this. Hoping to be discharged soon. Objective Vitals Vital Signs Date Time Temp Pulse Resp B/P (MAP) Pulse Ox O2 Delivery O2 Flow Rate FiO2 10/31/16 12:00 97.6 64 18 140/77 (98) 96 10/31/16 08:00 96.9 71 18 160/80 (106) 96 10/30/16 20:00 98.6 77 18 142/66 (91) 95 10/30/16 16:00 97.2 80 18 168/75 (106) 93 I/O 10/30/16 10/30/16 10/30/16 10/31/16 10/31/16 10/31/16 07:00 15:00 23:00 07:00 15:00 23:00 Intake Total 200 ml 2600 ml 1020 ml Balance 200 ml 2600 ml 1020 ml Intake Oral 2500 ml 720 ml IV Total 200 ml 100 ml 300 ml # Voids 3 3 # Bowel Movements 1 Result Diagram: 10/27/16 0400 10/31/16 0403 Imaging Last Impressions Renal Ultrasound 10/30/16 0000 Signed Impressions: Service Date/Time: Sunday, October 30, 2016 14:01 - CONCLUSION: Negative examination. Manjit Calloway MD Lower Extremity Ultrasound 10/25/16 0000 Signed Impressions: Service Date/Time: Tuesday, October 25, 2016 16:01 - CONCLUSION: No evidence of DVT.. Eugene Estrada MD Tumor Localization 10/22/16 0000 Signed Impressions: Service Date/Time: October 12:42 - CONCLUSION: Findings are suspicious for osteomyelitis involving the distal portions of the fourth and fifth distal metatarsal bones of the right foot in addition to fifth proximal phalanx. Torri Lyles MD Aorta w/Runoff CTA 10/22/16 0000 Signed Impressions: Service Date/Time: October 11:06 - CONCLUSION: No significant aortoiliac inflow disease or large vessel runoff disease. Distal and small vessel disease not excludable, Faheem Lane MD Foot X-Ray 10/21/16 0000 Signed Impressions: Service Date/Time: Friday, October 21, 2016 11:27 - CONCLUSION: 1. Soft tissue swelling. 2. Degenerative changes. No acute fracture or cortical irregularity to suggest osteomyelitis Shawn Parkinson MD Foot MRI 10/21/16 0000 Signed Impressions: Service Date/Time: Friday, October 21, 2016 15:51 - CONCLUSION: Abnormal appearance to the 5th digit and surrounding soft tissues with absence of contrast enhancement with sharp demarcation suggesting that this there is devascularized. Robby Ceron MD Objective Remarks GENERAL: appears comfortable. sitting up in chair NECK: trachea midline. CARDIOVASCULAR: Regular rate and rhythm without murmurs RESPIRATORY: Breath sounds equal bilaterally. No accessory muscle use. GASTROINTESTINAL: Abdomen soft, non-tender, nondistended. MUSCULOSKELETAL: No cyanosis. right foot dressed. 1+ right-sided edema continues but per pt improving. A/P Problem List: (1) Diabetic foot infection ICD Code: E11.69 - Type 2 diabetes mellitus with other specified complication; L08.9 - Local infection of the skin and subcutaneous tissue, unspecified Status: Acute (2) Cellulitis ICD Code: L03.90 - Cellulitis, unspecified (3) Diabetic neuropathy ICD Code: E11.40 - Type 2 diabetes mellitus with diabetic neuropathy, unspecified (4) HTN (hypertension) ICD Code: I10 - Essential (primary) hypertension (5) Diabetes type 2, controlled ICD Code: E11.9 - Type 2 diabetes mellitus without complications (6) Osteomyelitis of right foot ICD Code: M86.9 - Osteomyelitis, unspecified Assessment and Plan Update in medical management 10/31/16 //Right-sided venous stasis edema. neg US for DVT. improving edema with Home wraps and diuretic. //Hypertension. I have stopped both the lisinopril and HCTZ due to pt's worsening Cr. Switched him to amlodipine and hydralazine. Continue to monitor clsely. //Right foot osteomyelitis. s/p right 4,5 digit amputation and 4,5 metatarsal resection w rotational skin plasty pod-2. Management per podiatry. ID following , on unasyn and levaquin f/u intraop cultures. //Acute renal failure: creatinine up to 3.29. Give NS @125ml/hr, continue to encourage po hydration, lisinopril and HCTZ stopped. Renal u/s neg. CTA w runoff w no significant aortoiliac inflow disease or large vessel runoff disease. Pt wishes to go home w home health. CM aware. PT following, recommends bariatric wheelchair, already ordered. awaiting final recs from ID non WB right foot. Awaiting final culture results Path results reviewed. 66 year old male with type 2 diabetes and severe peripheral neuropathy, presenting with worsening cellulitis or the right foot, on antibiotics. //Right Foot Cellulitis //Right Foot diabetic foot infection (overlying fifth metatarsal), possible // osteomyelitis of the fifth metatarsal as per MRI Vancomycin Zosyn Probiotic Podiatry following. DM2 //Diabetic Neuropathy Good control at baseline per patient Follow blood sugars Insulin Sliding Scale Diabetic Diet Check A1c=6.3 //Diabetic Neuropathy Contributory Follow clinically Interval outpatient podiatry visits recommended //HTN Continue baseline treatments Follow BP Adjust if needed //Constipation. Resolved after laxatives. Continue laxatives //DVT Prophylaxis Lovenox Discharge Planning awaiting final recs from ID and for creatinine to go back to baseline. consider nephrology consult if worsening in AM. Brigitte Pemberton MD Oct 31, 2016 13:24
[2016-10-31 16:00] VITALS: BP 134/74; PULSE 75; RESP 19; TEMP 98.5; O2SAT 92
[2016-10-31 19:42] VITALS: BP 177/84; PULSE 88; RESP 20; TEMP 99.1; O2SAT 94
[2016-11-01] MEDS: SODIUM CHLOR 0.9% 1000 ML INJ 1,000 ML IV SCH ×3 (00:30→08:52)
[2016-11-01] MEDS: ACETAMINOPHEN 325 MG TAB PO PRN (00:32)
[2016-11-01 00:38] VITALS: BP 146/74; PULSE 82; RESP 16; TEMP 96.9; O2SAT 93
[2016-11-01] MEDS: AMPICILLIN-SULBACTAM INJ 3 GM in SODIUM CHLORIDE 0.9% INJ 100 ML IV SCH ×3 (05:27→21:00)
[2016-11-01] MEDS: hydrALAZINE HCL 10 MG TAB PO SCH ×3 (05:29→21:32)
[2016-11-01 07:48] LABS: POTASSIUM 4.1 MEQ/L (3.5-5.1)
[2016-11-01 08:00] VITALS: BP 161/72; PULSE 64; RESP 18; TEMP 96.1; O2SAT 96
[2016-11-01] MEDS: INSULIN ASPART SUPPLEMENTAL SCALE SQ SCH ×4 (08:00→21:00)
[2016-11-01] MEDS: DOCUSATE SODIUM 50 MG/SENNA 8.6 MG TAB PO SCH ×2 (08:52→21:32)
[2016-11-01] MEDS: LEVOFLOXACIN 750 MG TAB PO SCH (08:52)
[2016-11-01] MEDS: PRAVASTATIN SOD 20 MG TAB PO SCH (08:52)
[2016-11-01] MEDS: MULTIVITAMIN TAB PO SCH (08:52)
[2016-11-01] MEDS: SODIUM CHLORIDE 0.9% FLUSH 10 ML FLUSH IV FLUSH SCH ×2 (08:52→20:38)
[2016-11-01 12:00] VITALS: BP 143/66; PULSE 68; RESP 18; TEMP 97.5; O2SAT 95
--- NOTE | 2016-11-01 12:24 | HHI.PR ---
Subjective Remarks Kidney functions actually worse we'll consult renal Case discussed with patient and RN Herson labs Ultrasound of kidneys Objective Vitals Vital Signs Date Time Temp Pulse Resp B/P (MAP) Pulse Ox O2 Delivery O2 Flow Rate FiO2 11/01/16 08:00 96.1 64 18 161/72 (101) 96 11/01/16 01:13 20 11/01/16 00:38 96.9 82 16 146/74 (98) 93 10/31/16 19:42 99.1 88 20 177/84 (115) 94 10/31/16 16:00 98.5 75 19 134/74 (94) 92 I/O 10/31/16 10/31/16 10/31/16 11/01/16 11/01/16 11/01/16 07:00 15:00 23:00 07:00 15:00 23:00 Intake Total 1020 ml 2854 ml Output Total 1000 ml Balance 1020 ml 2854 ml -1000 ml Intake Oral 720 ml 2500 ml IV Total 300 ml 354 ml Output Urine Total 1000 ml # Voids 3 4 # Bowel Movements 1 Result Diagram: 11/01/16 0558 Other Results Laboratory Tests Test 10/30/16 07:55 10/30/16 13:15 10/31/16 04:03 11/01/16 05:58 Creatinine 2.98 MG/DL 3.29 MG/DL 3.47 MG/DL Estimat Glomerular Filtration Rate 21 ML/MIN 19 ML/MIN 18 ML/MIN Urine Color YELLOW Urine Turbidity CLEAR Urine pH 5.0 Urine Specific [place] 1.013 Urine Protein 30 mg/dL Urine Glucose (UA) NEG mg/dL Urine Ketones 10 mg/dL Urine Occult Blood SMALL Urine Nitrite NEG Urine Bilirubin NEG Urine Urobilinogen LESS THAN 2.0 MG/DL Urine Leukocyte Esterase NEG Urine RBC 17 /hpf Urine WBC 1 /hpf Urine Mucus FEW /lpf Urine Eosinophils NONE SEEN /HPF Blood Urea Nitrogen 26 MG/DL 26 MG/DL Random Glucose 133 MG/DL 108 MG/DL Calcium Level 8.7 MG/DL 8.4 MG/DL Sodium Level 137 MEQ/L 136 MEQ/L Potassium Level 3.9 MEQ/L 4.1 MEQ/L Chloride Level 100 MEQ/L 102 MEQ/L Carbon Dioxide Level 26.0 MEQ/L 25.0 MEQ/L Anion Gap 11 MEQ/L 9 MEQ/L Imaging Last Impressions Renal Ultrasound 10/30/16 Signed Impressions: Service Date/Time: Sunday, October 30, 2016 14:01 - CONCLUSION: Negative examination. Manjit Calloway MD Lower Extremity Ultrasound 10/25/16 Signed Impressions: Service Date/Time: Tuesday, October 25, 2016 16:01 - CONCLUSION: No evidence of DVT.. Eugene Estrada MD Tumor Localization 10/22/16 Signed Impressions: Service Date/Time: October 12:42 - CONCLUSION: Findings are suspicious for osteomyelitis involving the distal portions of the fourth and fifth distal metatarsal bones of the right foot in addition to fifth proximal phalanx. Torri Lyles MD Aorta w/Runoff CTA 10/22/16 Signed Impressions: Service Date/Time: October 11:06 - CONCLUSION: No significant aortoiliac inflow disease or large vessel runoff disease. Distal and small vessel disease not excludable, Faheem Lane MD Foot X-Ray 10/21/16 Signed Impressions: Service Date/Time: Friday, October 21, 2016 11:27 - CONCLUSION: 1. Soft tissue swelling. 2. Degenerative changes. No acute fracture or cortical irregularity to suggest osteomyelitis Shawn Parkinson MD Foot MRI 10/21/16 Signed Impressions: Service Date/Time: Friday, October 21, 2016 15:51 - CONCLUSION: Abnormal appearance to the 5th digit and surrounding soft tissues with absence of contrast enhancement with sharp demarcation suggesting that this there is devascularized. Robby Ceron MD Objective Remarks GENERAL: Awake alert and oriented talkative and cooperative SKIN: Warm and dry. Right lower extremity dress some edema HEAD: Atraumatic. Normocephalic. EYES: Pupils equal and round. No scleral icterus. No injection or drainage. Extraocular Muscles intact ENT: No nasal bleeding or discharge. Mucous membranes pink and moist. Tongue midline NECK: Trachea midline. No JVD. Neck supple CARDIOVASCULAR: Regular rate and rhythm. S1 and S2 no S3-S4 no heave or thrill or rub or gallop RESPIRATORY: No accessory muscle use. Clear to auscultation. Breath sounds equal bilaterally. GASTROINTESTINAL: Abdomen soft, non-tender, nondistended. Hepatic and splenic margins not palpable. MUSCULOSKELETAL: Extremities without clubbing, cyanosis, positive +2 lower extremity edema. No obvious deformities. NEUROLOGICAL: Awake and alert. No obvious cranial nerve deficits. Motor grossly within normal limits. Five out of 5 muscle strength in the arms and legs. Normal speech. Right lower extremity dressed PSYCHIATRIC: Appropriate mood and affect; insight and judgment normal. Procedures YESSENIA EWING DPM DATE OF SURGERY: 10/28/2016 PREOPERATIVE DIAGNOSIS Diabetic foot infection with osteomyelitis right fourth and fifth digit and fourth and fifth metatarsals. POSTOPERATIVE DIAGNOSIS Diabetic foot infection with osteomyelitis right fourth and fifth digit and fourth and fifth metatarsals. PROCEDURE PERFORMED Right fourth, fifth digit amputation, fourth and fifth metatarsal resection, incision and drainage, debridement with a rotational skin plasty plantar foot ulcer greater than 10 cm. FINDINGS See operative dictation. SPECIMENS Fourth and fifth digit and fourth and fifth metatarsals to check for proximal margin for osteomyelitis, this is for pathology, deep wound cultures were taken, one of the bone fourth and fifth metatarsal and one of the deep soft tissue. Medications and IVs Current Medications Dextrose (D50w (Vial) Inj) 50 ml UNSCH PRN IV HYPOGLYCEMIA-SEE COMMENTS; Start 10/21/16 at 12:45 Glucagon (Glucagon Inj) 1 mg UNSCH PRN OTHER HYPOGLYCEMIA-SEE COMMENTS; Start 10/21/16 at 12:45 Insulin Aspart (NovoLOG SUPPLEMENTAL SCALE) 1 ACHS SLIDING SCALE SQ ; Start 10/21/16 at 16:00 Vancomycin HCl 1750 mg/Sodium Chloride 517.5 ml @ 258.75 mls/ hr ONCE ONCE IV Last administered on 10/21/16 13:38; Start 10/21/16 at 12:45; Stop 10/21/16 at 14:44; Status DC Pharmacy Profile Note 0 ml @ 0 mls/hr UNSCH OTHER ; Start 10/21/16 at 12:45; Stop 10/29/16 at 12:29; Status DC Piperacillin Sod/ Tazobactam Sod 50 ml @ 100 mls/hr Q6H IV Last administered on 10/22/16 17:33; Start 10/21/16 at 16:00; Stop 10/22/16 at 21:32; Status DC Sodium Chloride (NS Flush) 2 ml UNSCH PRN IV FLUSH FLUSH AFTER USING IV ACCESS ; Start 10/21/16 at 12:45 Sodium Chloride (NS Flush) 2 ml BID IV FLUSH Last administered on 10/31/16 08: 14; Start 10/21/16 at 21:00 Acetaminophen (Tylenol) 650 mg Q4H PRN PO TEMP > 100.4 Last administered on 00:32; Start 10/21/16 at 12:45 Ondansetron HCl (Zofran Inj) 4 mg Q6H PRN IVP NAUSEA OR VOMITING Last administered on 10/29/16 17:21; Start 10/21/16 at 12:45 Enoxaparin Sodium (Lovenox Inj) 40 mg Q24H SQ Last administered on 10/31/16 12 :54; Start 10/21/16 at 14:00; Stop 10/31/16 at 15:16; Status DC Acetaminophen/ Hydrocodone Bitart ([place] 5-325 Mg) 1 tab Q4H PRN PO PAIN SCALE 3 TO 5 Last administered on 10/29/16 04:12; Start 10/21/16 at 12:45 Naloxone HCl (Narcan Inj) 0.4 mg UNSCH PRN IV SEE LABEL COMMENTS; Start at 12:45 Senna/Docusate Sodium (Stacey-Colace) 1 tab BID PO Last administered on 10/24/16 09:20; Start 10/21/16 at 21:00; Stop 10/24/16 at 23:56; Status DC Magnesium Hydroxide (Milk Of Magnesia Liq) 30 ml Q12H PRN PO MILD - MODERATE CONSTIPATION; Start 10/21/16 at 12:45 Sennosides (Senokot) 17.2 mg Q12H PRN PO MODERATE - SEVERE CONSTIPATION; Start 10/21/16 at 12:45 Bisacodyl (Dulcolax Supp) 10 mg DAILY PRN RECTAL SEVERE CONSITIPATION; Start at 12:45 Lactulose (Lactulose Liq) 30 ml DAILY PRN PO SEVERE CONSITIPATION; Start at 12:45 Vancomycin HCl 2500 mg/Sodium Chloride 525 ml @ 250 mls/hr Q18H IV Last administered on 10/28/16 17:59; Start 10/22/16 at 00:00; Stop 10/29/16 at 12:29 ; Status DC Miscellaneous Information SPECIFIC LAB TO BE DRAWN:VANCO TROUGH DATE... ONCE ONCE .XX Last administered on 10/24/16 05:35; Start 10/24/16 at 05:45; Stop 10/24 at 05:46; Status DC Gadodiamide (Omniscan Pf Inj) 30 ml STK-MED ONCE IV PUSH Last administered on 16:16; Start 10/21/16 at 16:16; Stop 10/21/16 at 16:17; Status DC Lisinopril (Prinivil) 10 mg DAILY PO Last administered on 10/31/16 08:13; Start 10/22/16 at 09:00; Status Future Hold Pravastatin Sodium (Pravachol) 20 mg DAILY PO Last administered on 11/01/16 08 :52; Start 10/22/16 at 09:00 Multivitamins (Theragran) 1 tab DAILY PO Last administered on 11/01/16 08:52; Start 10/22/16 at 09:00 Iohexol (Omnipaque 350 Inj) 100 ml STK-MED ONCE IVCONTRAST Last administered on 10/22/16 11:36; Start 10/22/16 at 11:36; Stop 10/22/16 at 11:37; Status DC Piperacillin Sod/ Tazobactam Sod 3.375 gm/Sodium Chloride 100 ml @ 200 mls/hr Q6H IV ; Start 10/23/16 at 04:00; Stop 10/23/16 at 05:28; Status DC Piperacillin Sod/ Tazobactam Sod 50 ml @ 100 mls/hr Q6H IV Last administered on 10/29/16 09:02; Start 10/22/16 at 22:00; Stop 10/29/16 at 12:29; Status DC Senna/Docusate Sodium (Stacey-Colace) 1 tab BID PO Last administered on 08:12; Start 10/25/16 at 09:00 Hydrochlorothiazide (Microzide) 12.5 mg ONCE ONCE PO Last administered on 10/25 16:00; Start 10/25/16 at 16:00; Stop 10/25/16 at 16:37; Status DC Hydrochlorothiazide (Microzide) 12.5 mg DAILY PO Last administered on 09:47; Start 10/26/16 at 09:00; Stop 10/26/16 at 23:56; Status DC Hydrochlorothiazide (Microzide) 25 mg DAILY PO Last administered on 10/31/16 08:13; Start 10/27/16 at 09:00; Stop 10/31/16 at 11:42; Status DC Lactated Ringer's 1,000 ml @ 30 mls/hr Q24H PRN IV SEE LABEL COMMENTS; Start at 02:00; Stop 10/31/16 at 01:59; Status DC Midazolam HCl (Versed Inj) 2 mg STK-MED ONCE .ROUTE ; Start 10/28/16 at 07:19; Stop 10/28/16 at 07:20; Status DC Famotidine (Pepcid Inj) 20 mg STK-MED ONCE .ROUTE ; Start 10/28/16 at 07:19; Stop 10/28/16 at 07:20; Status DC Oxycodone/ Acetaminophen (Percocet 7.5-325 Mg) 1 tab Q4H PRN PO PAIN SCALE 6 TO 8 Last administered on 10/30/16 09:52; Start 10/28/16 at 09:00 Miscellaneous Information SPECIFIC LAB TO BE DRAWN:VANCOMYCIN TROUGH DATE TO... ONCE ONCE .XX Last administered on 10/28/16 17:45; Start 10/28/16 at 17:45; Stop 10/28/16 at 17:46; Status DC Miscellaneous Information ALL NURSING DEPARTME... UNSCH PRN .XX SEE LABEL COMMENTS; Start 10/28/16 at 08:50; Stop 10/29/16 at 08:49; Status DC Ampicillin Sodium/ Sulbactam Sodium 3 gm/Sodium Chloride 100 ml @ 200 mls/hr Q6H IV ; Start 10/29/16 at 12:30; Stop 10/29/16 at 12:34; Status DC Levofloxacin (Levaquin) 750 mg DAILY PO Last administered on 10/30/16 09:42; Start 10/29/16 at 14:00; Stop 10/30/16 at 12:41; Status DC Ampicillin Sodium/ Sulbactam Sodium 3 gm/Sodium Chloride 100 ml @ 200 mls/hr Q8H IV Last administered on 11/01/16 05:27; Start 10/29/16 at 21:00 Levofloxacin (Levaquin) 750 mg Q48H PO Last administered on 11/01/16 08:52; Start 11/01/16 at 09:00 Sodium Chloride 1,000 ml @ 125 mls/hr Q8H IV Last administered on 11/01/16 08 :52; Start 10/31/16 at 12:00 Amlodipine Besylate (Norvasc) 10 mg DAILY PO Last administered on 11/01/16 08: 52; Start 11/01/16 at 09:00 Hydralazine HCl (Apresoline) 10 mg Q8HR PO Last administered on 11/01/16 05:29 ; Start 10/31/16 at 14:00 Enoxaparin Sodium (Lovenox Inj) 30 mg Q24H SQ ; Start 11/01/16 at 14:00 Urinary Catheter: No A/P Problem List: (1) Diabetic foot infection ICD Code: E11.69 - Type 2 diabetes mellitus with other specified complication; L08.9 - Local infection of the skin and subcutaneous tissue, unspecified Status: Acute (2) Cellulitis ICD Code: L03.90 - Cellulitis, unspecified (3) Diabetic neuropathy ICD Code: E11.40 - Type 2 diabetes mellitus with diabetic neuropathy, unspecified (4) HTN (hypertension) ICD Code: I10 - Essential (primary) hypertension (5) Diabetes type 2, controlled ICD Code: E11.9 - Type 2 diabetes mellitus without complications (6) Osteomyelitis of right foot ICD Code: M86.9 - Osteomyelitis, unspecified Assessment and Plan Update in medical management 10/31/16 //Right-sided venous stasis edema. neg US for DVT. improving edema with Home wraps and diuretic. //Hypertension. I have stopped both the lisinopril and HCTZ due to pt's worsening Cr. Switched him to amlodipine and hydralazine. Continue to monitor clsely. //Right foot osteomyelitis. s/p right 4,5 digit amputation and 4,5 metatarsal resection w rotational skin plasty pod-2. Management per podiatry. ID following , on unasyn and levaquin f/u intraop cultures. //Acute renal failure: creatinine up to 3.29. Give NS @125ml/hr, continue to encourage po hydration, lisinopril and HCTZ stopped. Renal u/s neg. CTA w runoff w no significant aortoiliac inflow disease or large vessel runoff disease. Pt wishes to go home w home health. CM aware. PT following, recommends bariatric wheelchair, already ordered. awaiting final recs from ID non WB right foot. Awaiting final culture results Path results reviewed. 66 year old male with type 2 diabetes and severe peripheral neuropathy, presenting with worsening cellulitis or the right foot, on antibiotics. //Right Foot Cellulitis //Right Foot diabetic foot infection (overlying fifth metatarsal), possible // osteomyelitis of the fifth metatarsal as per MRI Vancomycin Zosyn Probiotic Podiatry following. DM2 //Diabetic Neuropathy Good control at baseline per patient Follow blood sugars Insulin Sliding Scale Diabetic Diet Check A1c=6.3 //Diabetic Neuropathy Contributory Follow clinically Interval outpatient podiatry visits recommended //HTN Continue baseline treatments Follow BP Adjust if needed //Constipation. Resolved after laxatives. Continue laxatives //DVT Prophylaxis Lovenox Consult nephrology due to worsening renal function Discharge Planning awaiting final recs from ID and for creatinine to go back to baseline. Erasto Torres DO Nov 01, 2016 12:24
[2016-11-01] MEDS: ENOXAPARIN SODIUM 30 MG/0.3 ML SYRINGE SQ SCH (13:34)
--- NOTE | 2016-11-01 15:50 | PD.CONS ---
[facility] Service Nephrology Consult Requested By Reason for Consult Acute kidney injury Primary Care Physician Golden Drake MD History of Present Illness This patient was admitted on the after a fall as a result of which he had suffered right foot wound. Outpatient therapy for infection had been unsuccessful. After admission he was placed on Vancomycin and Zosyn. Creatinine on admission was 1.3, it actually improved to 1.1 on the . On the he underwent CTA with runoff. Small vessel disease was found and vascular surgeon opined that there was no need for vascular intervention. Patient had a creatinine of 1.44 as of 10/28. His Vancomycin level was 35.8 on the . ID was consulted and antibiotics were changed to Unasyn and Levaquin. Patient underwent debridement, 4th digit amputation, and resection of 4th and 5th metatarsals on the . There is no documented hypotension. His creatinine increased to 2.39 on 10/29, 2.98 on 10/30, 3.29 on the and 3.49 on the . UA on the revealed 30 mg /dL of proteinuria. Renal US is negative for hydronephrosis. Review of Systems Constitutional: COMPLAINS OF: Fatigue, DENIES: Fever Cardiovascular: DENIES: Chest pain, Palpitations, Syncope Gastrointestinal: DENIES: Abdominal pain, Black stools Musculoskeletal: COMPLAINS OF: Joint pain, Muscle aches, Stiffness Past Family Social History Allergies: Coded Allergies: No Known Allergies (Unverified , 10/21/16) Past Medical History Diabetes mellitus type 2 Diabetic neuropathy Hypertension Reported Medications Reported Meds & Active Scripts Active Reported Clindamycin (Clindamycin HCl) 300 Mg Cap 300 Mg PO TID Bactroban Topical (Mupirocin) 22 Gm Cream 1 Applic TOPICAL TID Metformin (Metformin HCl) 500 Mg Tab 500 Mg PO BIDPC With meals Lovastatin 20 Mg Tab 20 Mg PO DAILY Nateglinide 120 Mg Tab 120 Mg PO BID Lisinopril 10 Mg Tab 10 Mg PO DAILY Ocuvite (Multiple Vitamins W/ Minerals) 1 Tab 1 Tab PO DAILY Multi-Vitamin Daily (Multiple Vitamin) 1 Tab Tab 1 Tab PO DAILY Aspirin Low Dose (Aspirin) 81 Mg Chew 81 Mg CHEW DAILY Family History patient's mother had COPD Father had RA. Social History no tobacco, occasional ETOH Physical Exam Vital Signs Vital Signs Date Time Temp Pulse Resp B/P (MAP) Pulse Ox O2 Delivery O2 Flow Rate FiO2 11/01/16 12:00 97.5 68 18 143/66 (91) 95 11/01/16 08:00 96.1 64 18 161/72 (101) 96 11/01/16 01:13 20 11/01/16 00:38 96.9 82 16 146/74 (98) 93 10/31/16 19:42 99.1 88 20 177/84 (115) 94 10/31/16 16:00 98.5 75 19 134/74 (94) 92 Physical Exam GENERAL: obese, sitting on a chair, comfortable. SKIN: Warm and dry. HEAD: Normocephalic. EYES: No scleral icterus. No injection or drainage. NECK: Supple, trachea midline. No JVD or lymphadenopathy. CARDIOVASCULAR: Regular rate and rhythm without murmurs, gallops, or rubs. RESPIRATORY: Breath sounds equal bilaterally. No accessory muscle use. GASTROINTESTINAL: Abdomen soft, non-tender, nondistended. MUSCULOSKELETAL: No cyanosis, 1 + edema. Right foot in dressing. BACK: Nontender without obvious deformity. No CVA tenderness. Laboratory Laboratory Tests Test 11/01/16 05:58 Blood Urea Nitrogen 26 Creatinine 3.47 Random Glucose 108 Calcium Level 8.4 Sodium Level 136 Potassium Level 4.1 Chloride Level 102 Carbon Dioxide Level 25.0 Anion Gap 9 Estimat Glomerular Filtration Rate 18 Date/Time Source Procedure Growth Status 10/21/16 13:10 Blood Peripheral Aerobic Blood Culture - Final NO GROWTH IN 5 DAYS Complete 10/21/16 13:10 Blood Peripheral Anaerobic Blood Culture - Final NO GROWTH IN 5 DAYS Complete 10/28/16 08:30 Wound Bone Fungal Smear - Final NO FUNGAL ELEMENTS SEEN. Resulted 10/28/16 08:30 Wound Bone Fungal Culture Pending Resulted Result Diagram: 11/01/16 0558 Assessment and Plan Problem List: (1) Acute kidney injury ICD Codes: N17.9 - Acute kidney failure, unspecified Plan: It is possible that [place] is due to Vancomycin induced nephrotoxicity: it could be allergic interstitial nephritis due to Vancomycin or another agent. It is noted that he has eosinophilia. ATN due to infection and release of inflammatory mediators is another possibility. Vancomycin has been stopped. Consider switching Unasyn to another agent. Avoid any other nephrotoxic agents. Monitor urine output and renal function. He demonstrates edema, I do not believe he needs IVF. I will stop IV infusion. (2) Diabetes type 2, controlled ICD Codes: E11.9 - Type 2 diabetes mellitus without complications Plan: Avoid Metformin. Insulin coverage, maintain blood glucose between 140 and 180. (3) Osteomyelitis of right foot ICD Codes: M86.9 - Osteomyelitis, unspecified Plan: s/p surgery as mentioned above. ID following, on antibiotics. Culture results noted. (4) Anemia ICD Codes: D64.9 - Anemia, unspecified Plan: multifactorial, blood loss as well chronic illness. Monitor. Assessment and Plan Thanks for the consult. Kyle Fontaine MD Nov 01, 2016 15:50
[2016-11-01 16:00] VITALS: BP 185/80; PULSE 76; RESP 17; TEMP 98.2; O2SAT 96
[2016-11-01] MEDS ORDERED: SODIUM CHLOR 0.45% 1000 ML INJ 1,000 ML IV SCH (16:00)
[2016-11-01 17:02] VITALS: BP 152/74
[2016-11-01 19:47] VITALS: BP 167/73; PULSE 96; RESP 18; TEMP 99.2; O2SAT 96
[2016-11-02] VITALS: BP 151/66; PULSE 84; RESP 18; TEMP 96.2; O2SAT 94
[2016-11-02] MEDS: AMPICILLIN-SULBACTAM INJ 3 GM in SODIUM CHLORIDE 0.9% INJ 100 ML IV SCH (05:36)
[2016-11-02] MEDS: hydrALAZINE HCL 10 MG TAB PO SCH ×3 (05:36→21:07)
[2016-11-02 06:10] LABS: AUTOMATED NEUTROPHIL # 7.1 TH/MM3 (1.8-7.7); BASOPHIL % 0.3 % (0.0-2.0); EOSINOPHIL # 0.6 TH/MM3 (0-0.4); EOSINOPHIL % 6.7 % (0.0-4.0); HEMATOCRIT 37.5 % (39.0-51.0); HEMO FLAGS DIFF FINAL; LYMPH % 9.1 % (9.0-44.0); LYMPHOCYTE # 0.9 TH/MM3 (1.0-4.8); MEAN CELL VOLUME 91.8 FL (80.0-100.0); MEAN CORPUSCULAR HEMOGLOBIN 30.6 PG (27.0-34.0); MEAN CORPUSCULAR HGB CONC 33.4 % (32.0-36.0); MONO % 9.6 % (0.0-8.0); NEUT % 74.3 % (16.0-70.0); PLATELET COUNT 350 TH/MM3 (150-450); RED BLOOD COUNT 4.08 MIL/MM3 (4.50-5.90); RED CELL DISTRIBUTION WIDTH 13.6 % (11.6-17.2); WHITE BLOOD COUNT 9.6 TH/MM3 (4.0-11.0)
[2016-11-02 06:26] LABS: ANION GAP 8 MEQ/L (5-15); AST (GOT) 23 U/L (15-37); BICARBONATE 25.1 MEQ/L (21.0-32.0); BLOOD UREA NITROGEN 26 MG/DL (7-18); CHLORIDE 104 MEQ/L (98-107); GLOMERULAR FILTRATION RATE 16 ML/MIN (>89); POTASSIUM 4.2 MEQ/L (3.5-5.1); SODIUM (NA) 137 MEQ/L (136-145)
[2016-11-02 06:36] LABS: ALKALINE PHOSPHATASE 82 U/L (45-117); ALT (GPT) 33 U/L (12-78); FREE T4 1.42 NG/DL (0.76-1.46); TOTAL BILIRUBIN ADULT 0.5 MG/DL (0.2-1.0)
[2016-11-02 08:00] VITALS: BP 145/68; PULSE 75; RESP 16; TEMP 98; O2SAT 94
[2016-11-02] MEDS: INSULIN ASPART SUPPLEMENTAL SCALE SQ SCH ×4 (08:00→21:00)
[2016-11-02] MEDS: PRAVASTATIN SOD 20 MG TAB PO SCH (09:00)
[2016-11-02] MEDS: DOCUSATE SODIUM 50 MG/SENNA 8.6 MG TAB PO SCH ×2 (09:00→21:00)
--- NOTE | 2016-11-02 10:30 | HHI.IDPN ---
Subjective Subjective Remarks Patient is a 66-year-old male, senna to the hospital for further evaluation of a wound on his right foot. He apparently sustained a wound on the lateral aspect of his right foot about 3 weeks ago when his foot hit a concrete. He did not see any bleeding, and he put some topical antibiotic and The foot covered. He started noticing redness and some drainage, so the first when to walk-in clinic about 3 days prior to admission. He was given Bactroban ointment and clindamycin. Patient stated that it was not improving, and looked like it was getting worse, so he went to another walk-in clinic on the day of admission and from there he was advised to go to the emergency room for further evaluation and treatment. He denies any fever or chills or sweats. He has not had any GI, respiratory, or any urinary complaints. Patient states that he does have neuropathy. He has fairly good control on his blood sugars. He does not follow with any podiatry. Since admission patient has not had any fever. He had podiatry and vascular surgery evaluate him. There was no evidence of significant vascular disease. He has evidence of possible osteomyelitis on the fourth and fifth metatarsal of his right foot. Patient underwent surgery today and had amputation of his fourth and fifth digit as well as metatarsal. He had a culture done by the plant machinist at bedside when he first presented, and it has MSSA, Pasteurella, anaerobic gram-positive cocci, and some skin briana. His initial WBC was 13,000, and it's down to normal. Sedimentation rate is 81. C- reactive protein is 17. Infectious disease consultation has been requested to make treatment recommendations. Notes reviewed Temps ok Path report margin clear Creatinine continues to rise renal US no hydro Urine for eos negative No other complaint Antibiotics Unasyn Levaquin Lines PIV Past Medical History Diabetes mellitus type 2 Diabetic neuropathy Hypertension Allergies: Coded Allergies: No Known Allergies (Unverified , 10/21/16) Objective . Vital Signs Date Time Temp Pulse Resp B/P (MAP) Pulse Ox O2 Delivery O2 Flow Rate FiO2 11/02/16 08:00 98.0 75 16 145/68 (93) 94 11/02/16 00:00 96.2 84 18 151/66 (94) 94 11/01/16 19:47 99.2 96 18 167/73 (104) 96 Manual Cuff/Auscultation 11/01/16 17:02 152/74 (100) 11/01/16 16:00 98.2 76 17 185/80 (115) 96 11/01/16 12:00 97.5 68 18 143/66 (91) 95 . Laboratory Tests Test 11/02/16 04:45 White Blood Count 9.6 TH/MM3 Red Blood Count 4.08 MIL/MM3 Hemoglobin 12.5 GM/DL Hematocrit 37.5 % Mean Corpuscular Volume 91.8 FL Mean Corpuscular Hemoglobin 30.6 PG Mean Corpuscular Hemoglobin Concent 33.4 % Red Cell Distribution Width 13.6 % Platelet Count 350 TH/MM3 Mean Platelet Volume 7.3 FL Neutrophils (%) (Auto) 74.3 % Lymphocytes (%) (Auto) 9.1 % Monocytes (%) (Auto) 9.6 % Eosinophils (%) (Auto) 6.7 % Basophils (%) (Auto) 0.3 % Neutrophils # (Auto) 7.1 TH/MM3 Lymphocytes # (Auto) 0.9 TH/MM3 Monocytes # (Auto) 0.9 TH/MM3 Eosinophils # (Auto) 0.6 TH/MM3 Basophils # (Auto) 0.0 TH/MM3 CBC Comment DIFF FINAL Differential Comment Laboratory Tests Test 11/01/16 05:58 11/02/16 04:45 Blood Urea Nitrogen 26 MG/DL 26 MG/DL Creatinine 3.47 MG/DL 3.70 MG/DL Random Glucose 108 MG/DL 114 MG/DL Calcium Level 8.4 MG/DL 8.5 MG/DL Sodium Level 136 MEQ/L 137 MEQ/L Potassium Level 4.1 MEQ/L 4.2 MEQ/L Chloride Level 102 MEQ/L 104 MEQ/L Carbon Dioxide Level 25.0 MEQ/L 25.1 MEQ/L Anion Gap 9 MEQ/L 8 MEQ/L Estimat Glomerular Filtration Rate 18 ML/MIN 16 ML/MIN Total Protein 7.6 GM/DL Albumin 2.5 GM/DL Phosphorus Level 3.2 MG/DL Magnesium Level 2.0 MG/DL Alkaline Phosphatase 82 U/L Aspartate Amino Transf (AST/SGOT) 23 U/L Alanine Aminotransferase (ALT/SGPT) 33 U/L Total Bilirubin 0.5 MG/DL Free Thyroxine 1.42 NG/DL Thyroid Stimulating Hormone 3rd Gen 3.150 uIU/ML Imaging Last Impressions Lower Extremity Ultrasound 10/25/16 0000 Signed Impressions: Service Date/Time: Tuesday, October 25, 2016 16:01 - CONCLUSION: No evidence of DVT.. Eugene Estrada MD Tumor Localization 10/22/16 0000 Signed Impressions: Service Date/Time: October 12:42 - CONCLUSION: Findings are suspicious for osteomyelitis involving the distal portions of the fourth and fifth distal metatarsal bones of the right foot in addition to fifth proximal phalanx. Torri Lyles MD Aorta w/Runoff CTA 10/22/16 0000 Signed Impressions: Service Date/Time: October 11:06 - CONCLUSION: No significant aortoiliac inflow disease or large vessel runoff disease. Distal and small vessel disease not excludable, Faheem Lane MD Foot X-Ray 10/21/16 0000 Signed Impressions: Service Date/Time: Friday, October 21, 2016 11:27 - CONCLUSION: 1. Soft tissue swelling. 2. Degenerative changes. No acute fracture or cortical irregularity to suggest osteomyelitis Shawn Parkinson MD Foot MRI 10/21/16 0000 Signed Impressions: Service Date/Time: Friday, October 21, 2016 15:51 - CONCLUSION: Abnormal appearance to the 5th digit and surrounding soft tissues with absence of contrast enhancement with sharp demarcation suggesting that this there is devascularized. Robby Ceron MD Physical Exam GENERAL: awake and alert, not in respiratory distress. SKIN: Warm and dry. No generalized rash, no ecchymoses and no evidence of embolic lesions. HEAD: Atraumatic. Normocephalic. No temporal wasting, or tenderness. EYES: [place] conjunctiva. No petechia or hemorrhage. No scleral icterus. No injection or drainage. EARS, NOSE AND THROAT: Nose without bleeding or purulent nasal discharge. No sinus tenderness. Mucous membranes pink and moist. No oral lesions noted. No exudate. No oral thrush. NECK: Trachea midline. Supple and not tender, no meningeal signs CARDIOVASCULAR: Regular rate and rhythm. No murmurs, rubs or gallops heard RESPIRATORY: Clear to auscultation. Breath sounds equal bilaterally. No rales , wheezing or rhonchi ABDOMEN: Soft, non-tender, nondistended. Bowel sounds present and normoactive. No guarding. No rebound. No organomegaly. EXTREMITIES: No clubbing, cyanosis. No joint effusion, has good ROM. No calf tenderness. Well perfused and warm. R foot - incision is dry byt has serosanguineous drainage in dressing, no erythema. Improving edema on his R leg. NEUROLOGICAL: Awake and alert. Cranial nerves grossly intact. Motor grossly within normal limits. PSYCHIATRIC: Normal affect, calm and cooperative. LINE: No evidence of infection Assessment & Plan Remarks IMPRESSION Diabetic foot infection, R, with osteo 4th and 5th digits and MT, S/P amputation - initial C/S with MSSA, pasteurella, anaerobic GPC and skin briana - intraop C/S pending DM Obesity Renal insufficiency, worsening since admission - ?due to contrast, ?Abx RECOMMENDATION Continue Levaquin Change Unasyn to Clinda po Renal evaluating patient Explained plan to patient Pau Ortiz MD Nov 02, 2016 10:30
[2016-11-02] MEDS: MULTIVITAMIN TAB PO SCH (10:31)
[2016-11-02] MEDS: SODIUM CHLORIDE 0.9% FLUSH 10 ML FLUSH IV FLUSH SCH ×2 (10:32→21:07)
[2016-11-02 12:00] VITALS: BP 154/72; PULSE 70; RESP 16; TEMP 97.4; O2SAT 94
--- NOTE | 2016-11-02 12:09 | HHI.NPPN ---
Subjective Interval History He is non oliguric, however creatinine is worse. Review of Systems General Constitutional: Fatigue Cardiovascular Cardiac: Edema Objective Data Data Vital Signs Date Time Temp Pulse Resp B/P (MAP) Pulse Ox O2 Delivery O2 Flow Rate FiO2 11/02/16 08:00 98.0 75 16 145/68 (93) 94 11/02/16 00:00 96.2 84 18 151/66 (94) 94 11/01/16 19:47 99.2 96 18 167/73 (104) 96 Manual Cuff/Auscultation 11/01/16 17:02 152/74 (100) 11/01/16 16:00 98.2 76 17 185/80 (115) 96 11/01/16 12:00 97.5 68 18 143/66 (91) 95 -: 11/02/16 0445 11/02/16 0445 Physical Exam General Appearance: Well Developed, No Acute Distress, Comfortable Ears & Nose Ears & Nose Exam: Tympanic Membranes Normal Neck Neck Exam: Neck Supple Pulmonary Resp Exam: Clear Bilaterally Cardiology CV Exam: Regular, Normal Sinus Rhythm Gastrointestinal/Abdomen GI Exam: Soft, Non-Tender, Bowel Sounds Present Musculoskeletal MS Exam: Joints Intact Extremeties Extremities Exam: Pitting Edema, Dependent Edema Extremeties Remarks dressing over the right foot. Assessment/Plan Problem List: (1) Acute kidney injury ICD Codes: N17.9 - Acute kidney failure, unspecified Plan: It is possible that [place] is due to Vancomycin induced nephrotoxicity: it could be allergic interstitial nephritis due to Vancomycin or another agent. It is noted that he has eosinophilia. ATN due to infection and release of inflammatory mediators is another possibility. He did receive IV contrast on the , but renal function was stable until the . Therefore contrast nephropathy is less likely. Vancomycin has been stopped. Unasyn switched to Clindamycin. Avoid any other nephrotoxic agents. Monitor urine output and renal function. No need for IVF, may need diuresis. (2) Diabetes type 2, controlled ICD Codes: E11.9 - Type 2 diabetes mellitus without complications Plan: Avoid Metformin. Insulin coverage, maintain blood glucose between 140 and 180. (3) Osteomyelitis of right foot ICD Codes: M86.9 - Osteomyelitis, unspecified Plan: s/p surgery as mentioned above. ID following, on antibiotics. Culture results noted. (4) Anemia ICD Codes: D64.9 - Anemia, unspecified Plan: multifactorial, blood loss as well chronic illness. Monitor. Kyle Fontaine MD Nov 02, 2016 11:33
[2016-11-02] MEDS: CLINDAMYCIN 150 MG CAP PO SCH ×3 (13:03→23:38)
[2016-11-02] MEDS: ENOXAPARIN SODIUM 30 MG/0.3 ML SYRINGE SQ SCH (13:03)
--- NOTE | 2016-11-02 13:50 | HHI.PR ---
Subjective Remarks Kidney functions actually worse we'll consult renal Case discussed with patient and RN Herson labs Ultrasound of kidneys 11-02 KIDNEY FUNCTIONS ARE NOT IMPROVED YET MEDICATIONS ADJUSTED AM LABS FOLLOW RENAL FUNCTIONS Objective Vitals Vital Signs Date Time Temp Pulse Resp B/P (MAP) Pulse Ox O2 Delivery O2 Flow Rate FiO2 11/02/16 12:00 97.4 70 16 154/72 (99) 94 11/02/16 08:00 98.0 75 16 145/68 (93) 94 11/02/16 00:00 96.2 84 18 151/66 (94) 94 11/01/16 19:47 99.2 96 18 167/73 (104) 96 Manual Cuff/Auscultation 11/01/16 17:02 152/74 (100) 11/01/16 16:00 98.2 76 17 185/80 (115) 96 I/O 11/01/16 11/01/16 11/01/16 11/02/16 11/02/16 11/02/16 07:00 15:00 23:00 07:00 15:00 23:00 Intake Total 1000 ml 2482 ml 100 ml Output Total 1000 ml Balance -1000 ml 1000 ml 2482 ml 100 ml Intake Oral 1600 ml IV Total 1000 ml 882 ml 100 ml Output Urine Total 1000 ml # Voids 4 3 # Bowel Movements 0 Result Diagram: 11/02/16 0445 11/02/16 0445 Other Results Laboratory Tests Test 10/31/16 04:03 11/01/16 05:58 11/02/16 04:45 Blood Urea Nitrogen 26 MG/DL 26 MG/DL 26 MG/DL Creatinine 3.29 MG/DL 3.47 MG/DL 3.70 MG/DL Random Glucose 133 MG/DL 108 MG/DL 114 MG/DL Calcium Level 8.7 MG/DL 8.4 MG/DL 8.5 MG/DL Sodium Level 137 MEQ/L 136 MEQ/L 137 MEQ/L Potassium Level 3.9 MEQ/L 4.1 MEQ/L 4.2 MEQ/L Chloride Level 100 MEQ/L 102 MEQ/L 104 MEQ/L Carbon Dioxide Level 26.0 MEQ/L 25.0 MEQ/L 25.1 MEQ/L Anion Gap 11 MEQ/L 9 MEQ/L 8 MEQ/L Estimat Glomerular Filtration Rate 19 ML/MIN 18 ML/MIN 16 ML/MIN White Blood Count 9.6 TH/MM3 Red Blood Count 4.08 MIL/MM3 Hemoglobin 12.5 GM/DL Hematocrit 37.5 % Mean Corpuscular Volume 91.8 FL Mean Corpuscular Hemoglobin 30.6 PG Mean Corpuscular Hemoglobin Concent 33.4 % Red Cell Distribution Width 13.6 % Platelet Count 350 TH/MM3 Mean Platelet Volume 7.3 FL Neutrophils (%) (Auto) 74.3 % Lymphocytes (%) (Auto) 9.1 % Monocytes (%) (Auto) 9.6 % Eosinophils (%) (Auto) 6.7 % Basophils (%) (Auto) 0.3 % Neutrophils # (Auto) 7.1 TH/MM3 Lymphocytes # (Auto) 0.9 TH/MM3 Monocytes # (Auto) 0.9 TH/MM3 Eosinophils # (Auto) 0.6 TH/MM3 Basophils # (Auto) 0.0 TH/MM3 CBC Comment DIFF FINAL Differential Comment Total Protein 7.6 GM/DL Albumin 2.5 GM/DL Phosphorus Level 3.2 MG/DL Magnesium Level 2.0 MG/DL Alkaline Phosphatase 82 U/L Aspartate Amino Transf (AST/SGOT) 23 U/L Alanine Aminotransferase (ALT/SGPT) 33 U/L Total Bilirubin 0.5 MG/DL Free Thyroxine 1.42 NG/DL Thyroid Stimulating Hormone 3rd Gen 3.150 uIU/ML Imaging Last Impressions Renal Ultrasound 10/30/16 0000 Signed Impressions: Service Date/Time: Sunday, October 30, 2016 14:01 - CONCLUSION: Negative examination. Manjit Calloway MD Lower Extremity Ultrasound 10/25/16 0000 Signed Impressions: Service Date/Time: Tuesday, October 25, 2016 16:01 - CONCLUSION: No evidence of DVT.. Eugene Estrada MD Tumor Localization 10/22/16 0000 Signed Impressions: Service Date/Time: October 12:42 - CONCLUSION: Findings are suspicious for osteomyelitis involving the distal portions of the fourth and fifth distal metatarsal bones of the right foot in addition to fifth proximal phalanx. Torri Lyles MD Aorta w/Runoff CTA 10/22/16 0000 Signed Impressions: Service Date/Time: October 11:06 - CONCLUSION: No significant aortoiliac inflow disease or large vessel runoff disease. Distal and small vessel disease not excludable, Faheem aLne MD Foot X-Ray 10/21/16 0000 Signed Impressions: Service Date/Time: Friday, October 21, 2016 11:27 - CONCLUSION: 1. Soft tissue swelling. 2. Degenerative changes. No acute fracture or cortical irregularity to suggest osteomyelitis Shawn Parkinson MD Foot MRI 10/21/16 0000 Signed Impressions: Service Date/Time: Friday, October 21, 2016 15:51 - CONCLUSION: Abnormal appearance to the 5th digit and surrounding soft tissues with absence of contrast enhancement with sharp demarcation suggesting that this there is devascularized. Robby Ceron MD Objective Remarks GENERAL: Awake alert and oriented talkative and cooperative SKIN: Warm and dry. Right lower extremity dress some edema HEAD: Atraumatic. Normocephalic. EYES: Pupils equal and round. No scleral icterus. No injection or drainage. Extraocular Muscles intact ENT: No nasal bleeding or discharge. Mucous membranes pink and moist. Tongue midline NECK: Trachea midline. No JVD. Neck supple CARDIOVASCULAR: Regular rate and rhythm. S1 and S2 no S3-S4 no heave or thrill or rub or gallop RESPIRATORY: No accessory muscle use. Clear to auscultation. Breath sounds equal bilaterally. GASTROINTESTINAL: Abdomen soft, non-tender, nondistended. Hepatic and splenic margins not palpable. MUSCULOSKELETAL: Extremities without clubbing, cyanosis, positive +2 lower extremity edema. No obvious deformities. NEUROLOGICAL: Awake and alert. No obvious cranial nerve deficits. Motor grossly within normal limits. Five out of 5 muscle strength in the arms and legs. Normal speech. Right lower extremity dressed PSYCHIATRIC: Appropriate mood and affect; insight and judgment normal. Procedures YESSENIA EWING DPM DATE OF SURGERY: 10/28/2016 PREOPERATIVE DIAGNOSIS Diabetic foot infection with osteomyelitis right fourth and fifth digit and fourth and fifth metatarsals. POSTOPERATIVE DIAGNOSIS Diabetic foot infection with osteomyelitis right fourth and fifth digit and fourth and fifth metatarsals. PROCEDURE PERFORMED Right fourth, fifth digit amputation, fourth and fifth metatarsal resection, incision and drainage, debridement with a rotational skin plasty plantar foot ulcer greater than 10 cm. FINDINGS See operative dictation. SPECIMENS Fourth and fifth digit and fourth and fifth metatarsals to check for proximal margin for osteomyelitis, this is for pathology, deep wound cultures were taken, one of the bone fourth and fifth metatarsal and one of the deep soft tissue. Medications and IVs Current Medications Dextrose (D50w (Vial) Inj) 50 ml UNSCH PRN IV HYPOGLYCEMIA-SEE COMMENTS; Start 10/21/16 at 12:45 Glucagon (Glucagon Inj) 1 mg UNSCH PRN OTHER HYPOGLYCEMIA-SEE COMMENTS; Start 10/21/16 at 12:45 Insulin Aspart (NovoLOG SUPPLEMENTAL SCALE) 1 ACHS SLIDING SCALE SQ ; Start 10/21/16 at 16:00 Vancomycin HCl 1750 mg/Sodium Chloride 517.5 ml @ 258.75 mls/ hr ONCE ONCE IV Last administered on 10/21/16 13:38; Start 10/21/16 at 12:45; Stop 10/21/16 at 14:44; Status DC Pharmacy Profile Note 0 ml @ 0 mls/hr UNSCH OTHER ; Start 10/21/16 at 12:45; Stop 10/29/16 at 12:29; Status DC Piperacillin Sod/ Tazobactam Sod 50 ml @ 100 mls/hr Q6H IV Last administered on 10/22/16 17:33; Start 10/21/16 at 16:00; Stop 10/22/16 at 21:32; Status DC Sodium Chloride (NS Flush) 2 ml UNSCH PRN IV FLUSH FLUSH AFTER USING IV ACCESS ; Start 10/21/16 at 12:45 Sodium Chloride (NS Flush) 2 ml BID IV FLUSH Last administered on 11/02/16 10: 32; Start 10/21/16 at 21:00 Acetaminophen (Tylenol) 650 mg Q4H PRN PO TEMP > 100.4 Last administered on 00:32; Start 10/21/16 at 12:45 Ondansetron HCl (Zofran Inj) 4 mg Q6H PRN IVP NAUSEA OR VOMITING Last administered on 10/29/16 17:21; Start 10/21/16 at 12:45 Enoxaparin Sodium (Lovenox Inj) 40 mg Q24H SQ Last administered on 10/31/16 12 :54; Start 10/21/16 at 14:00; Stop 10/31/16 at 15:16; Status DC Acetaminophen/ Hydrocodone Bitart ([place] 5-325 Mg) 1 tab Q4H PRN PO PAIN SCALE 3 TO 5 Last administered on 10/29/16 04:12; Start 10/21/16 at 12:45 Naloxone HCl (Narcan Inj) 0.4 mg UNSCH PRN IV SEE LABEL COMMENTS; Start at 12:45 Senna/Docusate Sodium (Stacey-Colace) 1 tab BID PO Last administered on 10/24/16 09:20; Start 10/21/16 at 21:00; Stop 10/24/16 at 23:56; Status DC Magnesium Hydroxide (Milk Of Magnesia Liq) 30 ml Q12H PRN PO MILD - MODERATE CONSTIPATION; Start 10/21/16 at 12:45 Sennosides (Senokot) 17.2 mg Q12H PRN PO MODERATE - SEVERE CONSTIPATION; Start 10/21/16 at 12:45 Bisacodyl (Dulcolax Supp) 10 mg DAILY PRN RECTAL SEVERE CONSITIPATION; Start at 12:45 Lactulose (Lactulose Liq) 30 ml DAILY PRN PO SEVERE CONSITIPATION; Start at 12:45 Vancomycin HCl 2500 mg/Sodium Chloride 525 ml @ 250 mls/hr Q18H IV Last administered on 10/28/16 17:59; Start 10/22/16 at 00:00; Stop 10/29/16 at 12:29 ; Status DC Miscellaneous Information SPECIFIC LAB TO BE DRAWN:VANCO TROUGH DATE... ONCE ONCE .XX Last administered on 10/24/16 05:35; Start 10/24/16 at 05:45; Stop 10/24 at 05:46; Status DC Gadodiamide (Omniscan Pf Inj) 30 ml STK-MED ONCE IV PUSH Last administered on 16:16; Start 10/21/16 at 16:16; Stop 10/21/16 at 16:17; Status DC Lisinopril (Prinivil) 10 mg DAILY PO Last administered on 10/31/16 08:13; Start 10/22/16 at 09:00; Status Future Hold Pravastatin Sodium (Pravachol) 20 mg DAILY PO Last administered on 11/02/16 09 :00; Start 10/22/16 at 09:00 Multivitamins (Theragran) 1 tab DAILY PO Last administered on 11/02/16 10:31; Start 10/22/16 at 09:00 Iohexol (Omnipaque 350 Inj) 100 ml STK-MED ONCE IVCONTRAST Last administered on 10/22/16 11:36; Start 10/22/16 at 11:36; Stop 10/22/16 at 11:37; Status DC Piperacillin Sod/ Tazobactam Sod 3.375 gm/Sodium Chloride 100 ml @ 200 mls/hr Q6H IV ; Start 10/23/16 at 04:00; Stop 10/23/16 at 05:28; Status DC Piperacillin Sod/ Tazobactam Sod 50 ml @ 100 mls/hr Q6H IV Last administered on 10/29/16 09:02; Start 10/22/16 at 22:00; Stop 10/29/16 at 12:29; Status DC Senna/Docusate Sodium (Stacey-Colace) 1 tab BID PO Last administered on 21:32; Start 10/25/16 at 09:00 Hydrochlorothiazide (Microzide) 12.5 mg ONCE ONCE PO Last administered on 10/25 16:00; Start 10/25/16 at 16:00; Stop 10/25/16 at 16:37; Status DC Hydrochlorothiazide (Microzide) 12.5 mg DAILY PO Last administered on 09:47; Start 10/26/16 at 09:00; Stop 10/26/16 at 23:56; Status DC Hydrochlorothiazide (Microzide) 25 mg DAILY PO Last administered on 10/31/16 08:13; Start 10/27/16 at 09:00; Stop 10/31/16 at 11:42; Status DC Lactated Ringer's 1,000 ml @ 30 mls/hr Q24H PRN IV SEE LABEL COMMENTS; Start at 02:00; Stop 10/31/16 at 01:59; Status DC Midazolam HCl (Versed Inj) 2 mg STK-MED ONCE .ROUTE ; Start 10/28/16 at 07:19; Stop 10/28/16 at 07:20; Status DC Famotidine (Pepcid Inj) 20 mg STK-MED ONCE .ROUTE ; Start 10/28/16 at 07:19; Stop 10/28/16 at 07:20; Status DC Oxycodone/ Acetaminophen (Percocet 7.5-325 Mg) 1 tab Q4H PRN PO PAIN SCALE 6 TO 8 Last administered on 10/30/16 09:52; Start 10/28/16 at 09:00 Miscellaneous Information SPECIFIC LAB TO BE DRAWN:VANCOMYCIN TROUGH DATE TO... ONCE ONCE .XX Last administered on 10/28/16 17:45; Start 10/28/16 at 17:45; Stop 10/28/16 at 17:46; Status DC Miscellaneous Information ALL NURSING DEPARTME... UNSCH PRN .XX SEE LABEL COMMENTS; Start 10/28/16 at 08:50; Stop 10/29/16 at 08:49; Status DC Ampicillin Sodium/ Sulbactam Sodium 3 gm/Sodium Chloride 100 ml @ 200 mls/hr Q6H IV ; Start 10/29/16 at 12:30; Stop 10/29/16 at 12:34; Status DC Levofloxacin (Levaquin) 750 mg DAILY PO Last administered on 10/30/16 09:42; Start 10/29/16 at 14:00; Stop 10/30/16 at 12:41; Status DC Ampicillin Sodium/ Sulbactam Sodium 3 gm/Sodium Chloride 100 ml @ 200 mls/hr Q8H IV Last administered on 11/02/16 05:36; Start 10/29/16 at 21:00; Stop at 10:27; Status DC Levofloxacin (Levaquin) 750 mg Q48H PO Last administered on 11/01/16 08:52; Start 11/01/16 at 09:00 Sodium Chloride 1,000 ml @ 125 mls/hr Q8H IV Last administered on 11/01/16 08 :52; Start 10/31/16 at 12:00; Stop 11/01/16 at 15:47; Status DC Amlodipine Besylate (Norvasc) 10 mg DAILY PO Last administered on 11/02/16 10: 32; Start 11/01/16 at 09:00 Hydralazine HCl (Apresoline) 10 mg Q8HR PO Last administered on 11/02/16 13:03 ; Start 10/31/16 at 14:00 Enoxaparin Sodium (Lovenox Inj) 30 mg Q24H SQ Last administered on 11/02/16 13 :03; Start 11/01/16 at 14:00 Sodium Chloride 1,000 ml @ 75 mls/hr [id number] IV Last administered on 16:37; Start 11/01/16 at 16:00; Stop 11/01/16 at 17:40; Status DC Clindamycin HCl (Cleocin) 300 mg Q6HR PO Last administered on 11/02/16 13:03; Start 11/02/16 at 12:00 Urinary Catheter: No A/P Problem List: (1) Diabetic foot infection ICD Code: E11.69 - Type 2 diabetes mellitus with other specified complication; L08.9 - Local infection of the skin and subcutaneous tissue, unspecified Status: Acute (2) Cellulitis ICD Code: L03.90 - Cellulitis, unspecified (3) Diabetic neuropathy ICD Code: E11.40 - Type 2 diabetes mellitus with diabetic neuropathy, unspecified (4) HTN (hypertension) ICD Code: I10 - Essential (primary) hypertension (5) Diabetes type 2, controlled ICD Code: E11.9 - Type 2 diabetes mellitus without complications (6) Osteomyelitis of right foot ICD Code: M86.9 - Osteomyelitis, unspecified Assessment and Plan Update in medical management 10/31/16 //Right-sided venous stasis edema. neg US for DVT. improving edema with Home wraps and diuretic. //Hypertension. I have stopped both the lisinopril and HCTZ due to pt's worsening Cr. Switched him to amlodipine and hydralazine. Continue to monitor clsely. //Right foot osteomyelitis. s/p right 4,5 digit amputation and 4,5 metatarsal resection w rotational skin plasty pod-2. Management per podiatry. ID following , on unasyn and levaquin f/u intraop cultures. //Acute renal failure: creatinine up to 3.70 RENAL CONSULTED- MEDICATIONS ADJUSTED, lisinopril and HCTZ stopped. Renal u/s neg. CTA w runoff w no significant aortoiliac inflow disease or large vessel runoff disease. Pt wishes to go home w home health. CM aware. PT following, recommends bariatric wheelchair, already ordered. awaiting final recs from ID non WB right foot. Awaiting final culture results Path results reviewed. 66 year old male with type 2 diabetes and severe peripheral neuropathy, presenting with worsening cellulitis or the right foot, on antibiotics. //Right Foot Cellulitis //Right Foot diabetic foot infection (overlying fifth metatarsal), possible // osteomyelitis of the fifth metatarsal as per MRI MEDS ADJUSTED BY ID Probiotic Podiatry following. DM2 //Diabetic Neuropathy Good control at baseline per patient Follow blood sugars Insulin Sliding Scale Diabetic Diet Check A1c=6.3 //Diabetic Neuropathy Contributory Follow clinically Interval outpatient podiatry visits recommended //HTN Continue baseline treatments Follow BP Adjust if needed //Constipation. Resolved after laxatives. Continue laxatives //DVT Prophylaxis Lovenox Consult nephrology due to worsening renal function AM LABS- ACTUALLY WENT UP Discharge Planning awaiting final recs from ID and for creatinine to go back to baseline. Erasto Torres DO Nov 02, 2016 13:50
--- NOTE | 2016-11-02 13:54 | HHI.FF ---
Face to Face Verification Diagnosis: (1) Diabetic foot infection (2) Diabetic neuropathy (3) Cellulitis (4) HTN (hypertension) (5) Diabetes type 2, controlled (6) Osteomyelitis of right foot (7) Toe amputation status (8) Anemia (9) Acute kidney injury Physical Therapy Order: Evaluate and Treat, Improve ambulation Occupational Therapy Order: Evaluate and Treat, Gross motor coordination, Fine motor coordination Home Health Nursing Order: Wound care and dressing changes Instructions: Betadine swab to incision on right foot daily 4 x 4 Maria Alejandra wrap daily on right foot Home Health Aide Order: To Assist In: [employer] [place] and meal prep I have seen patient Rambo Duron Jr Timoteo on 11/02/16. My clinical findings support the need for the requested home health care services because: Ltd mobility - disease progression Limited ability to care for self I certify that my clinical findings support that this patient is homebound because: Unsteady gait/balance Erasto Torres DO Nov 02, 2016 13:54
[2016-11-02 14:56] LABS: HEMOGLOBIN A1a 1.4 %; HEMOGLOBIN A1b 2.1 %; HEMOGLOBIN Ao 82.7 %; HEMOGLOBIN LA1C 2.2 %
[2016-11-02] MEDS ORDERED: *ENALAPRILAT 1.25 MG/ML VIAL PERIprocedural Use ONLY ONE (15:48)
[2016-11-02 16:00] VITALS: BP 129/64; PULSE 68; RESP 18; TEMP 98.2; O2SAT 93
[2016-11-02 20:00] VITALS: BP 165/74; PULSE 81; RESP 17; TEMP 98.8; O2SAT 96
[2016-11-02] MEDS: ACETAMINOPHEN 325 MG TAB PO PRN (21:11)
[2016-11-03] VITALS: BP 138/60; PULSE 86; RESP 17; TEMP 95.4; O2SAT 95
[2016-11-03] MEDS: CLINDAMYCIN 150 MG CAP PO SCH ×4 (06:05→23:37)
[2016-11-03] MEDS: hydrALAZINE HCL 10 MG TAB PO SCH ×3 (06:05→21:49)
[2016-11-03 07:52] LABS: AUTOMATED NEUTROPHIL # 5.9 TH/MM3 (1.8-7.7); BASOPHIL % 0.4 % (0.0-2.0); EOSINOPHIL # 0.6 TH/MM3 (0-0.4); HEMATOCRIT 34.8 % (39.0-51.0); HEMO FLAGS DIFF FINAL; LYMPH % 8.7 % (9.0-44.0); LYMPHOCYTE # 0.7 TH/MM3 (1.0-4.8); MEAN CELL VOLUME 90.4 FL (80.0-100.0); MEAN CORPUSCULAR HEMOGLOBIN 30.3 PG (27.0-34.0); MEAN CORPUSCULAR HGB CONC 33.6 % (32.0-36.0); MONO % 9.8 % (0.0-8.0); NEUT % 73.1 % (16.0-70.0); PLATELET COUNT 295 TH/MM3 (150-450); RED BLOOD COUNT 3.85 MIL/MM3 (4.50-5.90); RED CELL DISTRIBUTION WIDTH 13.6 % (11.6-17.2); WHITE BLOOD COUNT 8.1 TH/MM3 (4.0-11.0)
[2016-11-03 08:00] VITALS: BP 136/64; PULSE 72; RESP 18; TEMP 98.7; O2SAT 96
[2016-11-03] MEDS: INSULIN ASPART SUPPLEMENTAL SCALE SQ SCH ×4 (08:00→21:00)
[2016-11-03 08:26] LABS: ALT (GPT) 29 U/L (12-78); ANION GAP 9 MEQ/L (5-15); AST (GOT) 19 U/L (15-37); BICARBONATE 23.6 MEQ/L (21.0-32.0); BLOOD UREA NITROGEN 33 MG/DL (7-18); CHLORIDE 104 MEQ/L (98-107); GLOMERULAR FILTRATION RATE 14 ML/MIN (>89); POTASSIUM 4.2 MEQ/L (3.5-5.1); SODIUM (NA) 137 MEQ/L (136-145)
[2016-11-03 08:28] LABS: ALKALINE PHOSPHATASE 71 U/L (45-117); TOTAL BILIRUBIN ADULT 0.5 MG/DL (0.2-1.0)
[2016-11-03] MEDS: DOCUSATE SODIUM 50 MG/SENNA 8.6 MG TAB PO SCH ×2 (09:00→21:00)
[2016-11-03] MEDS: PRAVASTATIN SOD 20 MG TAB PO SCH (09:00)
[2016-11-03] MEDS: LEVOFLOXACIN 750 MG TAB PO SCH (09:50)
[2016-11-03] MEDS: MULTIVITAMIN TAB PO SCH (09:51)
[2016-11-03] MEDS: SODIUM CHLORIDE 0.9% FLUSH 10 ML FLUSH IV FLUSH SCH ×2 (09:52→21:00)
--- NOTE | 2016-11-03 11:48 | HHI.PR ---
Subjective Remarks Kidney functions actually worse we'll consult renal Case discussed with patient and RN A.m. labs Ultrasound of kidneys 11-02 KIDNEY FUNCTIONS ARE NOT IMPROVED YET MEDICATIONS ADJUSTED AM LABS FOLLOW RENAL FUNCTIONS 11-03 patient has worsening renal functions today we'll continue to monitor. Not cleared for discharge obviously Have discussed with patient and RN Objective Vitals Vital Signs Date Time Temp Pulse Resp B/P (MAP) Pulse Ox O2 Delivery O2 Flow Rate FiO2 11/03/16 08:00 98.7 72 18 136/64 (88) 96 11/03/16 00:00 95.4 86 17 138/60 (86) 95 11/02/16 20:00 98.8 81 17 165/74 (104) 96 11/02/16 16:00 98.2 68 18 129/64 (85) 93 11/02/16 12:00 97.4 70 16 154/72 (99) 94 I/O 11/02/16 11/02/16 11/02/16 11/03/16 11/03/16 11/03/16 07:00 15:00 23:00 07:00 15:00 23:00 Intake Total 100 ml 1600 ml 240 ml Balance 100 ml 1600 ml 240 ml Intake Oral 1600 ml 240 ml IV Total 100 ml # Voids 3 5 1 # Bowel Movements 1 Result Diagram: 11/03/1615 11/03/16714 Other Results Laboratory Tests Test 11/01/16 05:58 11/02/16 04:45 11/03/16 07:15 Blood Urea Nitrogen 26 MG/DL 26 MG/DL 33 MG/DL Creatinine 3.47 MG/DL 3.70 MG/DL 4.23 MG/DL Random Glucose 108 MG/DL 114 MG/DL 115 MG/DL Calcium Level 8.4 MG/DL 8.5 MG/DL 8.2 MG/DL Sodium Level 136 MEQ/L 137 MEQ/L 137 MEQ/L Potassium Level 4.1 MEQ/L 4.2 MEQ/L 4.2 MEQ/L Chloride Level 102 MEQ/L 104 MEQ/L 104 MEQ/L Carbon Dioxide Level 25.0 MEQ/L 25.1 MEQ/L 23.6 MEQ/L Anion Gap 9 MEQ/L 8 MEQ/L 9 MEQ/L Estimat Glomerular Filtration Rate 18 ML/MIN 16 ML/MIN 14 ML/MIN White Blood Count 9.6 TH/MM3 8.1 TH/MM3 Red Blood Count 4.08 MIL/MM3 3.85 MIL/MM3 Hemoglobin 12.5 GM/DL 11.7 GM/DL Hematocrit 37.5 % 34.8 % Mean Corpuscular Volume 91.8 FL 90.4 FL Mean Corpuscular Hemoglobin 30.6 PG 30.3 PG Mean Corpuscular Hemoglobin Concent 33.4 % 33.6 % Red Cell Distribution Width 13.6 % 13.6 % Platelet Count 350 TH/MM3 295 TH/MM3 Mean Platelet Volume 7.3 FL 7.0 FL Neutrophils (%) (Auto) 74.3 % 73.1 % Lymphocytes (%) (Auto) 9.1 % 8.7 % Monocytes (%) (Auto) 9.6 % 9.8 % Eosinophils (%) (Auto) 6.7 % 8.0 % Basophils (%) (Auto) 0.3 % 0.4 % Neutrophils # (Auto) 7.1 TH/MM3 5.9 TH/MM3 Lymphocytes # (Auto) 0.9 TH/MM3 0.7 TH/MM3 Monocytes # (Auto) 0.9 TH/MM3 0.8 TH/MM3 Eosinophils # (Auto) 0.6 TH/MM3 0.6 TH/MM3 Basophils # (Auto) 0.0 TH/MM3 0.0 TH/MM3 CBC Comment DIFF FINAL DIFF FINAL Differential Comment Total Protein 7.6 GM/DL 7.0 GM/DL Albumin 2.5 GM/DL 2.2 GM/DL Phosphorus Level 3.2 MG/DL 3.6 MG/DL Magnesium Level 2.0 MG/DL 2.0 MG/DL Alkaline Phosphatase 82 U/L 71 U/L Aspartate Amino Transf (AST/SGOT) 23 U/L 19 U/L Alanine Aminotransferase (ALT/SGPT) 33 U/L 29 U/L Total Bilirubin 0.5 MG/DL 0.5 MG/DL Hemoglobin A1c 6.6 % Free Thyroxine 1.42 NG/DL Thyroid Stimulating Hormone 3rd Gen 3.150 uIU/ML Imaging Last Impressions Renal Ultrasound 10/30/16 0000 Signed Impressions: Service Date/Time: Sunday, October 30, 2016 14:01 - CONCLUSION: Negative examination. Manjit Calolway MD Lower Extremity Ultrasound 10/25/16 0000 Signed Impressions: Service Date/Time: Tuesday, October 25, 2016 16:01 - CONCLUSION: No evidence of DVT.. Eugene Estrada MD Tumor Localization 10/22/16 0000 Signed Impressions: Service Date/Time: October 12:42 - CONCLUSION: Findings are suspicious for osteomyelitis involving the distal portions of the fourth and fifth distal metatarsal bones of the right foot in addition to fifth proximal phalanx. Torri Lyles MD Aorta w/Runoff CTA 10/22/16 0000 Signed Impressions: Service Date/Time: October 11:06 - CONCLUSION: No significant aortoiliac inflow disease or large vessel runoff disease. Distal and small vessel disease not excludable, Faheem Lane MD Foot X-Ray 10/21/16 0000 Signed Impressions: Service Date/Time: Friday, October 21, 2016 11:27 - CONCLUSION: 1. Soft tissue swelling. 2. Degenerative changes. No acute fracture or cortical irregularity to suggest osteomyelitis Shawn Parkinson MD Foot MRI 10/21/16 0000 Signed Impressions: Service Date/Time: Friday, October 21, 2016 15:51 - CONCLUSION: Abnormal appearance to the 5th digit and surrounding soft tissues with absence of contrast enhancement with sharp demarcation suggesting that this there is devascularized. Robby Ceron MD Objective Remarks GENERAL: Awake alert and oriented talkative and cooperative SKIN: Warm and dry. Right lower extremity dress some edema chronic right lower extremity skin changes appear peripheral vascular and diabetic in nature HEAD: Atraumatic. Normocephalic. EYES: Pupils equal and round. No scleral icterus. No injection or drainage. Extraocular Muscles intact ENT: No nasal bleeding or discharge. Mucous membranes pink and moist. Tongue midline NECK: Trachea midline. No JVD. Neck supple CARDIOVASCULAR: Regular rate and rhythm. S1 and S2 no S3-S4 no heave or thrill or rub or gallop RESPIRATORY: No accessory muscle use. Clear to auscultation. Breath sounds equal bilaterally. GASTROINTESTINAL: Abdomen soft, non-tender, nondistended. Hepatic and splenic margins not palpable. MUSCULOSKELETAL: Extremities without clubbing, cyanosis, positive +2 lower extremity edema. No obvious deformities. Chronic skin changes to the right lower extremity NEUROLOGICAL: Awake and alert. No obvious cranial nerve deficits. Motor grossly within normal limits. Five out of 5 muscle strength in the arms and legs. Normal speech. Right lower extremity dressed PSYCHIATRIC: Appropriate mood and affect; insight and judgment normal. Procedures YESSENIA EWING DPM DATE OF SURGERY: 10/28/2016 PREOPERATIVE DIAGNOSIS Diabetic foot infection with osteomyelitis right fourth and fifth digit and fourth and fifth metatarsals. POSTOPERATIVE DIAGNOSIS Diabetic foot infection with osteomyelitis right fourth and fifth digit and fourth and fifth metatarsals. PROCEDURE PERFORMED Right fourth, fifth digit amputation, fourth and fifth metatarsal resection, incision and drainage, debridement with a rotational skin plasty plantar foot ulcer greater than 10 cm. FINDINGS See operative dictation. SPECIMENS Fourth and fifth digit and fourth and fifth metatarsals to check for proximal margin for osteomyelitis, this is for pathology, deep wound cultures were taken, one of the bone fourth and fifth metatarsal and one of the deep soft tissue. Medications and IVs Laboratory Tests Test 11/01/16 05:58 11/02/16 04:45 11/03/16 07:15 Blood Urea Nitrogen 26 MG/DL 26 MG/DL 33 MG/DL Creatinine 3.47 MG/DL 3.70 MG/DL 4.23 MG/DL Random Glucose 108 MG/DL 114 MG/DL 115 MG/DL Calcium Level 8.4 MG/DL 8.5 MG/DL 8.2 MG/DL Sodium Level 136 MEQ/L 137 MEQ/L 137 MEQ/L Potassium Level 4.1 MEQ/L 4.2 MEQ/L 4.2 MEQ/L Chloride Level 102 MEQ/L 104 MEQ/L 104 MEQ/L Carbon Dioxide Level 25.0 MEQ/L 25.1 MEQ/L 23.6 MEQ/L Anion Gap 9 MEQ/L 8 MEQ/L 9 MEQ/L Estimat Glomerular Filtration Rate 18 ML/MIN 16 ML/MIN 14 ML/MIN White Blood Count 9.6 TH/MM3 8.1 TH/MM3 Red Blood Count 4.08 MIL/MM3 3.85 MIL/MM3 Hemoglobin 12.5 GM/DL 11.7 GM/DL Hematocrit 37.5 % 34.8 % Mean Corpuscular Volume 91.8 FL 90.4 FL Mean Corpuscular Hemoglobin 30.6 PG 30.3 PG Mean Corpuscular Hemoglobin Concent 33.4 % 33.6 % Red Cell Distribution Width 13.6 % 13.6 % Platelet Count 350 TH/MM3 295 TH/MM3 Mean Platelet Volume 7.3 FL 7.0 FL Neutrophils (%) (Auto) 74.3 % 73.1 % Lymphocytes (%) (Auto) 9.1 % 8.7 % Monocytes (%) (Auto) 9.6 % 9.8 % Eosinophils (%) (Auto) 6.7 % 8.0 % Basophils (%) (Auto) 0.3 % 0.4 % Neutrophils # (Auto) 7.1 TH/MM3 5.9 TH/MM3 Lymphocytes # (Auto) 0.9 TH/MM3 0.7 TH/MM3 Monocytes # (Auto) 0.9 TH/MM3 0.8 TH/MM3 Eosinophils # (Auto) 0.6 TH/MM3 0.6 TH/MM3 Basophils # (Auto) 0.0 TH/MM3 0.0 TH/MM3 CBC Comment DIFF FINAL DIFF FINAL Differential Comment Total Protein 7.6 GM/DL 7.0 GM/DL Albumin 2.5 GM/DL 2.2 GM/DL Phosphorus Level 3.2 MG/DL 3.6 MG/DL Magnesium Level 2.0 MG/DL 2.0 MG/DL Alkaline Phosphatase 82 U/L 71 U/L Aspartate Amino Transf (AST/SGOT) 23 U/L 19 U/L Alanine Aminotransferase (ALT/SGPT) 33 U/L 29 U/L Total Bilirubin 0.5 MG/DL 0.5 MG/DL Hemoglobin A1c 6.6 % Free Thyroxine 1.42 NG/DL Thyroid Stimulating Hormone 3rd Gen 3.150 uIU/ML Urinary Catheter: No A/P Problem List: (1) Diabetic foot infection ICD Code: E11.69 - Type 2 diabetes mellitus with other specified complication; L08.9 - Local infection of the skin and subcutaneous tissue, unspecified Status: Acute (2) Cellulitis ICD Code: L03.90 - Cellulitis, unspecified (3) Diabetic neuropathy ICD Code: E11.40 - Type 2 diabetes mellitus with diabetic neuropathy, unspecified (4) HTN (hypertension) ICD Code: I10 - Essential (primary) hypertension (5) Diabetes type 2, controlled ICD Code: E11.9 - Type 2 diabetes mellitus without complications (6) Osteomyelitis of right foot ICD Code: M86.9 - Osteomyelitis, unspecified Assessment and Plan Update in medical management 10/31/16 //Right-sided venous stasis edema. neg US for DVT. improving edema with Home wraps and diuretic. //Hypertension. I have stopped both the lisinopril and HCTZ due to pt's worsening Cr. Switched him to amlodipine and hydralazine. Continue to monitor clsely. //Right foot osteomyelitis. s/p right 4,5 digit amputation and 4,5 metatarsal resection w rotational skin plasty pod-2. Management per podiatry. ID following , on clindamycin and levaquin f/u intraop cultures. //Acute renal failure: creatinine up to 4.23 RENAL CONSULTED- MEDICATIONS ADJUSTED, lisinopril and HCTZ stopped. Renal u/s neg. We'll hold off on discharge until it trends down CTA w runoff w no significant aortoiliac inflow disease or large vessel runoff disease. Pt wishes to go home w home health. CM aware. PT following, recommends bariatric wheelchair, already ordered. awaiting final recs from ID non WB right foot. Awaiting final culture results Path results reviewed. 66 year old male with type 2 diabetes and severe peripheral neuropathy, presenting with worsening cellulitis or the right foot, on antibiotics. //Right Foot Cellulitis //Right Foot diabetic foot infection (overlying fifth metatarsal), possible // osteomyelitis of the fifth metatarsal as per MRI MEDS ADJUSTED BY ID Probiotic Podiatry following. DM2 //Diabetic Neuropathy Good control at baseline per patient Follow blood sugars Insulin Sliding Scale Diabetic Diet Check A1c=6.3 //Diabetic Neuropathy Contributory Follow clinically Interval outpatient podiatry visits recommended //HTN Continue baseline treatments Follow BP Adjust if needed //Constipation. Resolved after laxatives. Continue laxatives //DVT Prophylaxis Lovenox Consult nephrology due to worsening renal function AM LABS- ACTUALLY WENT UP Discharge Planning awaiting final recs from ID and for creatinine to go back to baseline. A.m. labs await renal function return Erasto Torres DO Nov 03, 2016 11:48
[2016-11-03 12:00] VITALS: BP 132/67; PULSE 75; RESP 18; TEMP 99; O2SAT 96
[2016-11-03] MEDS: ENOXAPARIN SODIUM 30 MG/0.3 ML SYRINGE SQ SCH (13:43)
[2016-11-03] MEDS: predniSONE 20 MG TAB PO SCH (13:49)
[2016-11-03 16:00] VITALS: BP 123/64; PULSE 69; RESP 18; TEMP 98.9; O2SAT 94
--- NOTE | 2016-11-03 16:13 | HHI.IDPN ---
Subjective Subjective Remarks Patient is a 66-year-old male, senna to the hospital for further evaluation of a wound on his right foot. He apparently sustained a wound on the lateral aspect of his right foot about 3 weeks ago when his foot hit a concrete. He did not see any bleeding, and he put some topical antibiotic and The foot covered. He started noticing redness and some drainage, so the first when to walk-in clinic about 3 days prior to admission. He was given Bactroban ointment and clindamycin. Patient stated that it was not improving, and looked like it was getting worse, so he went to another walk-in clinic on the day of admission and from there he was advised to go to the emergency room for further evaluation and treatment. He denies any fever or chills or sweats. He has not had any GI, respiratory, or any urinary complaints. Patient states that he does have neuropathy. He has fairly good control on his blood sugars. He does not follow with any podiatry. Since admission patient has not had any fever. He had podiatry and vascular surgery evaluate him. There was no evidence of significant vascular disease. He has evidence of possible osteomyelitis on the fourth and fifth metatarsal of his right foot. Patient underwent surgery today and had amputation of his fourth and fifth digit as well as metatarsal. He had a culture done by the services rep at bedside when he first presented, and it has MSSA, Pasteurella, anaerobic gram-positive cocci, and some skin briana. His initial WBC was 13,000, and it's down to normal. Sedimentation rate is 81. C- reactive protein is 17. Infectious disease consultation has been requested to make treatment recommendations. Notes reviewed Temps ok Path report margin clear Creatinine continues to rise renal US no hydro Urine for eos negative No other complaint Antibiotics Unasyn Levaquin Lines PIV Past Medical History Diabetes mellitus type 2 Diabetic neuropathy Hypertension Allergies: Coded Allergies: No Known Allergies (Unverified , 10/21/16) Objective . Vital Signs Date Time Temp Pulse Resp B/P (MAP) Pulse Ox O2 Delivery O2 Flow Rate FiO2 11/03/16 12:00 99.0 75 18 132/67 (88) 96 11/03/16 08:00 98.7 72 18 136/64 (88) 96 11/03/16 00:00 95.4 86 17 138/60 (86) 95 11/02/16 20:00 98.8 81 17 165/74 (104) 96 . Laboratory Tests Test 11/02/16 04:45 11/03/16 07:15 White Blood Count 9.6 TH/MM3 8.1 TH/MM3 Red Blood Count 4.08 MIL/MM3 3.85 MIL/MM3 Hemoglobin 12.5 GM/DL 11.7 GM/DL Hematocrit 37.5 % 34.8 % Mean Corpuscular Volume 91.8 FL 90.4 FL Mean Corpuscular Hemoglobin 30.6 PG 30.3 PG Mean Corpuscular Hemoglobin Concent 33.4 % 33.6 % Red Cell Distribution Width 13.6 % 13.6 % Platelet Count 350 TH/MM3 295 TH/MM3 Mean Platelet Volume 7.3 FL 7.0 FL Neutrophils (%) (Auto) 74.3 % 73.1 % Lymphocytes (%) (Auto) 9.1 % 8.7 % Monocytes (%) (Auto) 9.6 % 9.8 % Eosinophils (%) (Auto) 6.7 % 8.0 % Basophils (%) (Auto) 0.3 % 0.4 % Neutrophils # (Auto) 7.1 TH/MM3 5.9 TH/MM3 Lymphocytes # (Auto) 0.9 TH/MM3 0.7 TH/MM3 Monocytes # (Auto) 0.9 TH/MM3 0.8 TH/MM3 Eosinophils # (Auto) 0.6 TH/MM3 0.6 TH/MM3 Basophils # (Auto) 0.0 TH/MM3 0.0 TH/MM3 CBC Comment DIFF FINAL DIFF FINAL Differential Comment Laboratory Tests Test 11/02/16 04:45 11/03/16 07:15 Blood Urea Nitrogen 26 MG/DL 33 MG/DL Creatinine 3.70 MG/DL 4.23 MG/DL Random Glucose 114 MG/DL 115 MG/DL Total Protein 7.6 GM/DL 7.0 GM/DL Albumin 2.5 GM/DL 2.2 GM/DL Calcium Level 8.5 MG/DL 8.2 MG/DL Phosphorus Level 3.2 MG/DL 3.6 MG/DL Magnesium Level 2.0 MG/DL 2.0 MG/DL Alkaline Phosphatase 82 U/L 71 U/L Aspartate Amino Transf (AST/SGOT) 23 U/L 19 U/L Alanine Aminotransferase (ALT/SGPT) 33 U/L 29 U/L Total Bilirubin 0.5 MG/DL 0.5 MG/DL Sodium Level 137 MEQ/L 137 MEQ/L Potassium Level 4.2 MEQ/L 4.2 MEQ/L Chloride Level 104 MEQ/L 104 MEQ/L Carbon Dioxide Level 25.1 MEQ/L 23.6 MEQ/L Anion Gap 8 MEQ/L 9 MEQ/L Estimat Glomerular Filtration Rate 16 ML/MIN 14 ML/MIN Hemoglobin A1c 6.6 % Free Thyroxine 1.42 NG/DL Thyroid Stimulating Hormone 3rd Gen 3.150 uIU/ML Imaging Last Impressions Lower Extremity Ultrasound 10/25/16 Signed Impressions: Service Date/Time: Tuesday, October 25, 2016 16:01 - CONCLUSION: No evidence of DVT.. Eugene Estrada MD Tumor Localization 10/22/16 Signed Impressions: Service Date/Time: October 12:42 - CONCLUSION: Findings are suspicious for osteomyelitis involving the distal portions of the fourth and fifth distal metatarsal bones of the right foot in addition to fifth proximal phalanx. Torri Lyles MD Aorta w/Runoff CTA 10/22/16 Signed Impressions: Service Date/Time: October 11:06 - CONCLUSION: No significant aortoiliac inflow disease or large vessel runoff disease. Distal and small vessel disease not excludable, Faheem Lane MD Foot X-Ray 10/21/16 Signed Impressions: Service Date/Time: Friday, October 21, 2016 11:27 - CONCLUSION: 1. Soft tissue swelling. 2. Degenerative changes. No acute fracture or cortical irregularity to suggest osteomyelitis Shawn Parkinson MD Foot MRI 10/21/16 Signed Impressions: Service Date/Time: Friday, October 21, 2016 15:51 - CONCLUSION: Abnormal appearance to the 5th digit and surrounding soft tissues with absence of contrast enhancement with sharp demarcation suggesting that this there is devascularized. Robby Ceron MD Physical Exam GENERAL: awake and alert, not in respiratory distress. SKIN: Warm and dry. No generalized rash, no ecchymoses and no evidence of embolic lesions. HEAD: Atraumatic. Normocephalic. No temporal wasting, or tenderness. EYES: [place] conjunctiva. No petechia or hemorrhage. No scleral icterus. No injection or drainage. EARS, NOSE AND THROAT: Nose without bleeding or purulent nasal discharge. No sinus tenderness. Mucous membranes pink and moist. No oral lesions noted. No exudate. No oral thrush. NECK: Trachea midline. Supple and not tender, no meningeal signs CARDIOVASCULAR: Regular rate and rhythm. No murmurs, rubs or gallops heard RESPIRATORY: Clear to auscultation. Breath sounds equal bilaterally. No rales , wheezing or rhonchi ABDOMEN: Soft, non-tender, nondistended. Bowel sounds present and normoactive. No guarding. No rebound. No organomegaly. EXTREMITIES: No clubbing, cyanosis. No joint effusion, has good ROM. No calf tenderness. Well perfused and warm. R foot - incision is dry byt has serosanguineous drainage in dressing, no erythema. Improving edema on his R leg. NEUROLOGICAL: Awake and alert. Cranial nerves grossly intact. Motor grossly within normal limits. PSYCHIATRIC: Normal affect, calm and cooperative. LINE: No evidence of infection Assessment & Plan Remarks IMPRESSION Diabetic foot infection, R, with osteo 4th and 5th digits and MT, S/P amputation - initial C/S with MSSA, pasteurella, anaerobic GPC and skin briana - intraop C/S pending DM Obesity Renal insufficiency, worsening since admission - ?due to contrast, ?Abx RECOMMENDATION Continue Levaquin Change Unasyn to Clinda po Complete Rx with oral antibiotics Renal evaluating patient Patient clinically stable and is cleared for D/C from ID standpoint I will sign off Please call if with any further ID issue or question Pau Ortiz MD Nov 03, 2016 16:13
--- NOTE | 2016-11-03 16:33 | HHI.NPPN ---
Subjective Interval History He is non oliguric, but renal function is worsening. He is not in distress, but had a lot of questions regarding his status. I have tried to answer all the questions. Review of Systems General Constitutional: Fatigue Cardiovascular Cardiac: Edema Objective Data Data Vital Signs Date Time Temp Pulse Resp B/P (MAP) Pulse Ox O2 Delivery O2 Flow Rate FiO2 11/03/16 12:00 99.0 75 18 132/67 (88) 96 11/03/16 08:00 98.7 72 18 136/64 (88) 96 11/03/16 00:00 95.4 86 17 138/60 (86) 95 11/02/16 20:00 98.8 81 17 165/74 (104) 96 -: 11/03/16 0715 11/03/16 0715 Physical Exam General Appearance: Well Developed, No Acute Distress, Comfortable Ears & Nose Ears & Nose Exam: Tympanic Membranes Normal Neck Neck Exam: Neck Supple Pulmonary Resp Exam: Clear Bilaterally Cardiology CV Exam: Regular, Normal Sinus Rhythm Gastrointestinal/Abdomen GI Exam: Soft, Non-Tender, Bowel Sounds Present Musculoskeletal MS Exam: Joints Intact Extremeties Extremities Exam: Pitting Edema, Dependent Edema Extremeties Remarks dressing over the right foot. Assessment/Plan Problem List: (1) Acute kidney injury ICD Codes: N17.9 - Acute kidney failure, unspecified Plan: It is possible that [place] is due to Vancomycin induced nephrotoxicity: it could be allergic interstitial nephritis due to Vancomycin or another agent. It is noted that he has eosinophilia. ATN due to infection and release of inflammatory mediators is another possibility. He did receive IV contrast on the , but renal function was stable until the . Therefore contrast nephropathy is less likely. Vancomycin has been stopped. Unasyn switched to Clindamycin. Avoid any other nephrotoxic agents. Monitor urine output and renal function. Eosinophilia is increasing. I have started steroids empirically. Order serological workup. (2) Diabetes type 2, controlled ICD Codes: E11.9 - Type 2 diabetes mellitus without complications Plan: Avoid Metformin. Insulin coverage, maintain blood glucose between 140 and 180. (3) Osteomyelitis of right foot ICD Codes: M86.9 - Osteomyelitis, unspecified Plan: s/p surgery as mentioned above. ID following, on antibiotics. Culture results noted. (4) Anemia ICD Codes: D64.9 - Anemia, unspecified Plan: multifactorial, blood loss as well chronic illness. Monitor. Hoskote,Kyle MD Nov 03, 2016 16:33
[2016-11-03 20:00] VITALS: BP 162/78; PULSE 90; RESP 17; TEMP 98.1; O2SAT 93
[2016-11-04] VITALS: BP 139/77; PULSE 81; RESP 17; TEMP 97.8; O2SAT 94
[2016-11-04] MEDS: hydrALAZINE HCL 10 MG TAB PO SCH ×3 (05:44→20:23)
[2016-11-04] MEDS: CLINDAMYCIN 150 MG CAP PO SCH ×4 (05:44→23:43)
[2016-11-04 07:14] LABS: BASOPHIL % 0.4 % (0.0-2.0); EOSINOPHIL % 0.3 % (0.0-4.0); HEMATOCRIT 34.9 % (39.0-51.0); HEMO FLAGS DIFF FINAL; LYMPH % 6.9 % (9.0-44.0); LYMPHOCYTE # 0.6 TH/MM3 (1.0-4.8); MEAN CELL VOLUME 90.8 FL (80.0-100.0); MEAN CORPUSCULAR HEMOGLOBIN 30.1 PG (27.0-34.0); MEAN CORPUSCULAR HGB CONC 33.2 % (32.0-36.0); NEUT % 88.4 % (16.0-70.0); PLATELET COUNT 309 TH/MM3 (150-450); RED BLOOD COUNT 3.85 MIL/MM3 (4.50-5.90); RED CELL DISTRIBUTION WIDTH 13.6 % (11.6-17.2); WHITE BLOOD COUNT 9.1 TH/MM3 (4.0-11.0)
[2016-11-04 07:35] LABS: BICARBONATE 22.7 MEQ/L (21.0-32.0); MAGNESIUM 2.1 MG/DL (1.5-2.5); POTASSIUM 4.5 MEQ/L (3.5-5.1)
[2016-11-04 07:42] LABS: TOTAL PROTEIN SPE 6.7 GM/DL (6.0-7.6)
[2016-11-04 08:00] VITALS: BP 142/65; PULSE 76; RESP 18; TEMP 96.1; O2SAT 95
[2016-11-04] MEDS: INSULIN ASPART SUPPLEMENTAL SCALE SQ SCH ×4 (08:00→20:21)
[2016-11-04] MEDS: PRAVASTATIN SOD 20 MG TAB PO SCH (09:00)
[2016-11-04] MEDS: DOCUSATE SODIUM 50 MG/SENNA 8.6 MG TAB PO SCH ×2 (09:00→20:21)
[2016-11-04] MEDS: SODIUM CHLORIDE 0.9% FLUSH 10 ML FLUSH IV FLUSH SCH ×2 (09:00→20:21)
--- NOTE | 2016-11-04 10:40 | HHI.PR ---
Subjective Remarks Kidney functions actually worse we'll consult renal Case discussed with patient and RN A.mBrody labs Ultrasound of kidneys 11-02 KIDNEY FUNCTIONS ARE NOT IMPROVED YET MEDICATIONS ADJUSTED AM LABS FOLLOW RENAL FUNCTIONS 11-03 patient has worsening renal functions today we'll continue to monitor. Not cleared for discharge obviously Have discussed with patient and RN 11-04 CR TRENDING DOWN TODAY 4.04 DAILY WOUND CARE SWITCHED TO CLINDAMYCIN ORALLY DC WHEN CLEARED BY RENAL Objective Vitals Vital Signs Date Time Temp Pulse Resp B/P (MAP) Pulse Ox O2 Delivery O2 Flow Rate FiO2 11/04/16 08:00 96.1 76 18 142/65 (90) 95 11/04/16 00:00 97.8 81 17 139/77 (97) 94 11/03/16 20:00 98.1 90 17 162/78 (106) 93 11/03/16 16:00 98.9 69 18 123/64 (83) 94 11/03/16 12:00 99.0 75 18 132/67 (88) 96 I/O 11/03/16 11/03/16 11/03/16 11/04/16 11/04/16 11/04/16 07:00 15:00 23:00 07:00 15:00 23:00 Intake Total 240 ml 1240 ml 240 ml Balance 240 ml 1240 ml 240 ml Intake Oral 240 ml 1240 ml 240 ml # Voids 1 6 2 # Bowel Movements 1 Result Diagram: 11/04/16 0517 11/04/16 0517 Other Results Laboratory Tests Test 11/02/16 04:45 11/03/16 07:15 11/04/16 05:17 White Blood Count 9.6 TH/MM3 8.1 TH/MM3 9.1 TH/MM3 Red Blood Count 4.08 MIL/MM3 3.85 MIL/MM3 3.85 MIL/MM3 Hemoglobin 12.5 GM/DL 11.7 GM/DL 11.6 GM/DL Hematocrit 37.5 % 34.8 % 34.9 % Mean Corpuscular Volume 91.8 FL 90.4 FL 90.8 FL Mean Corpuscular Hemoglobin 30.6 PG 30.3 PG 30.1 PG Mean Corpuscular Hemoglobin Concent 33.4 % 33.6 % 33.2 % Red Cell Distribution Width 13.6 % 13.6 % 13.6 % Platelet Count 350 TH/MM3 295 TH/MM3 309 TH/MM3 Mean Platelet Volume 7.3 FL 7.0 FL 7.3 FL Neutrophils (%) (Auto) 74.3 % 73.1 % 88.4 % Lymphocytes (%) (Auto) 9.1 % 8.7 % 6.9 % Monocytes (%) (Auto) 9.6 % 9.8 % 4.0 % Eosinophils (%) (Auto) 6.7 % 8.0 % 0.3 % Basophils (%) (Auto) 0.3 % 0.4 % 0.4 % Neutrophils # (Auto) 7.1 TH/MM3 5.9 TH/MM3 8.0 TH/MM3 Lymphocytes # (Auto) 0.9 TH/MM3 0.7 TH/MM3 0.6 TH/MM3 Monocytes # (Auto) 0.9 TH/MM3 0.8 TH/MM3 0.4 TH/MM3 Eosinophils # (Auto) 0.6 TH/MM3 0.6 TH/MM3 0.0 TH/MM3 Basophils # (Auto) 0.0 TH/MM3 0.0 TH/MM3 0.0 TH/MM3 CBC Comment DIFF FINAL DIFF FINAL DIFF FINAL Differential Comment Blood Urea Nitrogen 26 MG/DL 33 MG/DL 38 MG/DL Creatinine 3.70 MG/DL 4.23 MG/DL 4.04 MG/DL Random Glucose 114 MG/DL 115 MG/DL 157 MG/DL Total Protein 7.6 GM/DL 7.0 GM/DL 6.7 GM/DL Albumin 2.5 GM/DL 2.2 GM/DL 2.5 GM/DL Calcium Level 8.5 MG/DL 8.2 MG/DL 8.3 MG/DL Phosphorus Level 3.2 MG/DL 3.6 MG/DL 3.6 MG/DL Magnesium Level 2.0 MG/DL 2.0 MG/DL 2.1 MG/DL Alkaline Phosphatase 82 U/L 71 U/L Aspartate Amino Transf (AST/SGOT) 23 U/L 19 U/L Alanine Aminotransferase (ALT/SGPT) 33 U/L 29 U/L Total Bilirubin 0.5 MG/DL 0.5 MG/DL Sodium Level 137 MEQ/L 137 MEQ/L 134 MEQ/L Potassium Level 4.2 MEQ/L 4.2 MEQ/L 4.5 MEQ/L Chloride Level 104 MEQ/L 104 MEQ/L 102 MEQ/L Carbon Dioxide Level 25.1 MEQ/L 23.6 MEQ/L 22.7 MEQ/L Anion Gap 8 MEQ/L 9 MEQ/L 9 MEQ/L Estimat Glomerular Filtration Rate 16 ML/MIN 14 ML/MIN 15 ML/MIN Hemoglobin A1c 6.6 % Free Thyroxine 1.42 NG/DL Thyroid Stimulating Hormone 3rd Gen 3.150 uIU/ML Complement C3 132 MG/DL Complement C4 27 MG/DL Imaging Last Impressions Renal Ultrasound 10/30/16 0000 Signed Impressions: Service Date/Time: Sunday, October 30, 2016 14:01 - CONCLUSION: Negative examination. Manjit Calloway MD Lower Extremity Ultrasound 10/25/16 0000 Signed Impressions: Service Date/Time: Tuesday, October 25, 2016 16:01 - CONCLUSION: No evidence of DVT.. Eugene Estrada MD Tumor Localization 10/22/16 0000 Signed Impressions: Service Date/Time: October 12:42 - CONCLUSION: Findings are suspicious for osteomyelitis involving the distal portions of the fourth and fifth distal metatarsal bones of the right foot in addition to fifth proximal phalanx. Torri Lyles MD Aorta w/Runoff CTA 10/22/16 0000 Signed Impressions: Service Date/Time: October 11:06 - CONCLUSION: No significant aortoiliac inflow disease or large vessel runoff disease. Distal and small vessel disease not excludable, Faheem Lane MD Foot X-Ray 10/21/16 0000 Signed Impressions: Service Date/Time: Friday, October 21, 2016 11:27 - CONCLUSION: 1. Soft tissue swelling. 2. Degenerative changes. No acute fracture or cortical irregularity to suggest osteomyelitis Shawn Parkinson MD Foot MRI 10/21/16 0000 Signed Impressions: Service Date/Time: Friday, October 21, 2016 15:51 - CONCLUSION: Abnormal appearance to the 5th digit and surrounding soft tissues with absence of contrast enhancement with sharp demarcation suggesting that this there is devascularized. Robby Ceron MD Objective Remarks GENERAL: Awake alert and oriented talkative and cooperative SKIN: Warm and dry. Right lower extremity dress some edema chronic right lower extremity skin changes appear peripheral vascular and diabetic in nature HEAD: Atraumatic. Normocephalic. EYES: Pupils equal and round. No scleral icterus. No injection or drainage. Extraocular Muscles intact ENT: No nasal bleeding or discharge. Mucous membranes pink and moist. Tongue midline NECK: Trachea midline. No JVD. Neck supple CARDIOVASCULAR: Regular rate and rhythm. S1 and S2 no S3-S4 no heave or thrill or rub or gallop RESPIRATORY: No accessory muscle use. Clear to auscultation. Breath sounds equal bilaterally. GASTROINTESTINAL: Abdomen soft, non-tender, nondistended. Hepatic and splenic margins not palpable. MUSCULOSKELETAL: Extremities without clubbing, cyanosis, positive +1 lower extremity edema. No obvious deformities. Chronic skin changes to the right lower extremity RIGHT FOOT DRESSED NEUROLOGICAL: Awake and alert. No obvious cranial nerve deficits. Motor grossly within normal limits. Five out of 5 muscle strength in the arms and legs. Normal speech. Right lower extremity dressed PSYCHIATRIC: Appropriate mood and affect; insight and judgment normal. Procedures YESSENIA EWING DPM DATE OF SURGERY: 10/28/2016 PREOPERATIVE DIAGNOSIS Diabetic foot infection with osteomyelitis right fourth and fifth digit and fourth and fifth metatarsals. POSTOPERATIVE DIAGNOSIS Diabetic foot infection with osteomyelitis right fourth and fifth digit and fourth and fifth metatarsals. PROCEDURE PERFORMED Right fourth, fifth digit amputation, fourth and fifth metatarsal resection, incision and drainage, debridement with a rotational skin plasty plantar foot ulcer greater than 10 cm. FINDINGS See operative dictation. SPECIMENS Fourth and fifth digit and fourth and fifth metatarsals to check for proximal margin for osteomyelitis, this is for pathology, deep wound cultures were taken, one of the bone fourth and fifth metatarsal and one of the deep soft tissue. Medications and IVs Current Medications Dextrose (D50w (Vial) Inj) 50 ml UNSCH PRN IV HYPOGLYCEMIA-SEE COMMENTS; Start 10/21/16 at 12:45 Glucagon (Glucagon Inj) 1 mg UNSCH PRN OTHER HYPOGLYCEMIA-SEE COMMENTS; Start 10/21/16 at 12:45 Insulin Aspart (NovoLOG SUPPLEMENTAL SCALE) 1 ACHS SLIDING SCALE SQ ; Start 10/21/16 at 16:00 Vancomycin HCl 1750 mg/Sodium Chloride 517.5 ml @ 258.75 mls/ hr ONCE ONCE IV Last administered on 10/21/16t 13:38; Start 10/21/16 at 12:45; Stop 10/21/16 at 14:44; Status DC Pharmacy Profile Note 0 ml @ 0 mls/hr UNSCH OTHER ; Start 10/21/16 at 12:45; Stop 10/29/16 at 12:29; Status DC Piperacillin Sod/ Tazobactam Sod 50 ml @ 100 mls/hr Q6H IV Last administered on 10/22/16 17:33; Start 10/21/16 at 16:00; Stop 10/22/16 at 21:32; Status DC Sodium Chloride (NS Flush) 2 ml UNSCH PRN IV FLUSH FLUSH AFTER USING IV ACCESS ; Start 10/21/16 at 12:45 Sodium Chloride (NS Flush) 2 ml BID IV FLUSH Last administered on 11/03/16 21: 00; Start 10/21/16 at 21:00 Acetaminophen (Tylenol) 650 mg Q4H PRN PO TEMP > 100.4 Last administered on 21:11; Start 10/21/16 at 12:45 Ondansetron HCl (Zofran Inj) 4 mg Q6H PRN IVP NAUSEA OR VOMITING Last administered on 10/29/16 17:21; Start 10/21/16 at 12:45 Enoxaparin Sodium (Lovenox Inj) 40 mg Q24H SQ Last administered on 10/31/16 12 :54; Start 10/21/16 at 14:00; Stop 10/31/16 at 15:16; Status DC Acetaminophen/ Hydrocodone Bitart ([place] 5-325 Mg) 1 tab Q4H PRN PO PAIN SCALE 3 TO 5 Last administered on 10/29/16 04:12; Start 10/21/16 at 12:45 Naloxone HCl (Narcan Inj) 0.4 mg UNSCH PRN IV SEE LABEL COMMENTS; Start at 12:45 Senna/Docusate Sodium (Stacey-Colace) 1 tab BID PO Last administered on 10/24/16 09:20; Start 10/21/16 at 21:00; Stop 10/24/16 at 23:56; Status DC Magnesium Hydroxide (Milk Of Magnesia Liq) 30 ml Q12H PRN PO MILD - MODERATE CONSTIPATION; Start 10/21/16 at 12:45 Sennosides (Senokot) 17.2 mg Q12H PRN PO MODERATE - SEVERE CONSTIPATION; Start 10/21/16 at 12:45 Bisacodyl (Dulcolax Supp) 10 mg DAILY PRN RECTAL SEVERE CONSITIPATION; Start at 12:45 Lactulose (Lactulose Liq) 30 ml DAILY PRN PO SEVERE CONSITIPATION; Start at 12:45 Vancomycin HCl 2500 mg/Sodium Chloride 525 ml @ 250 mls/hr Q18H IV Last administered on 10/28/16 17:59; Start 10/22/16 at 00:00; Stop 10/29/16 at 12:29 ; Status DC Miscellaneous Information SPECIFIC LAB TO BE DRAWN:VANCO TROUGH DATE... ONCE ONCE .XX Last administered on 10/24/16 05:35; Start 10/24/16 at 05:45; Stop 10/24 at 05:46; Status DC Gadodiamide (Omniscan Pf Inj) 30 ml STK-MED ONCE IV PUSH Last administered on 16:16; Start 10/21/16 at 16:16; Stop 10/21/16 at 16:17; Status DC Lisinopril (Prinivil) 10 mg DAILY PO Last administered on 10/31/16 08:13; Start 10/22/16 at 09:00; Status Future Hold Pravastatin Sodium (Pravachol) 20 mg DAILY PO Last administered on 11/03/16 09 :00; Start 10/22/16 at 09:00 Multivitamins (Theragran) 1 tab DAILY PO Last administered on 11/03/16 09:51; Start 10/22/16 at 09:00 Iohexol (Omnipaque 350 Inj) 100 ml STK-MED ONCE IVCONTRAST Last administered on 10/22/16 11:36; Start 10/22/16 at 11:36; Stop 10/22/16 at 11:37; Status DC Piperacillin Sod/ Tazobactam Sod 3.375 gm/Sodium Chloride 100 ml @ 200 mls/hr Q6H IV ; Start 10/23/16 at 04:00; Stop 10/23/16 at 05:28; Status DC Piperacillin Sod/ Tazobactam Sod 50 ml @ 100 mls/hr Q6H IV Last administered on 10/29/16 09:02; Start 10/22/16 at 22:00; Stop 10/29/16 at 12:29; Status DC Senna/Docusate Sodium (Stacey-Colace) 1 tab BID PO Last administered on 21:32; Start 10/25/16 at 09:00 Hydrochlorothiazide (Microzide) 12.5 mg ONCE ONCE PO Last administered on 10/25 16:00; Start 10/25/16 at 16:00; Stop 10/25/16 at 16:37; Status DC Hydrochlorothiazide (Microzide) 12.5 mg DAILY PO Last administered on 09:47; Start 10/26/16 at 09:00; Stop 10/26/16 at 23:56; Status DC Hydrochlorothiazide (Microzide) 25 mg DAILY PO Last administered on 10/31/16 08:13; Start 10/27/16 at 09:00; Stop 10/31/16 at 11:42; Status DC Lactated Ringer's 1,000 ml @ 30 mls/hr Q24H PRN IV SEE LABEL COMMENTS; Start at 02:00; Stop 10/31/16 at 01:59; Status DC Midazolam HCl (Versed Inj) 2 mg STK-MED ONCE .ROUTE ; Start 10/28/16 at 07:19; Stop 10/28/16 at 07:20; Status DC Famotidine (Pepcid Inj) 20 mg STK-MED ONCE .ROUTE ; Start 10/28/16 at 07:19; Stop 10/28/16 at 07:20; Status DC Oxycodone/ Acetaminophen (Percocet 7.5-325 Mg) 1 tab Q4H PRN PO PAIN SCALE 6 TO 8 Last administered on 10/30/16 09:52; Start 10/28/16 at 09:00 Miscellaneous Information SPECIFIC LAB TO BE DRAWN:VANCOMYCIN TROUGH DATE TO... ONCE ONCE .XX Last administered on 10/28/16 17:45; Start 10/28/16 at 17:45; Stop 10/28/16 at 17:46; Status DC Miscellaneous Information ALL NURSING DEPARTME... UNSCH PRN .XX SEE LABEL COMMENTS; Start 10/28/16 at 08:50; Stop 10/29/16 at 08:49; Status DC Ampicillin Sodium/ Sulbactam Sodium 3 gm/Sodium Chloride 100 ml @ 200 mls/hr Q6H IV ; Start 10/29/16 at 12:30; Stop 10/29/16 at 12:34; Status DC Levofloxacin (Levaquin) 750 mg DAILY PO Last administered on 10/30/16 09:42; Start 10/29/16 at 14:00; Stop 10/30/16 at 12:41; Status DC Ampicillin Sodium/ Sulbactam Sodium 3 gm/Sodium Chloride 100 ml @ 200 mls/hr Q8H IV Last administered on 11/02/16 05:36; Start 10/29/16 at 21:00; Stop at 10:27; Status DC Levofloxacin (Levaquin) 750 mg Q48H PO Last administered on 11/03/16 09:50; Start 11/01/16 at 09:00; Stop 11/10/16 at 23:00 Sodium Chloride 1,000 ml @ 125 mls/hr Q8H IV Last administered on 11/01/16 08 :52; Start 10/31/16 at 12:00; Stop 11/01/16 at 15:47; Status DC Amlodipine Besylate (Norvasc) 10 mg DAILY PO Last administered on 11/03/16 09: 50; Start 11/01/16 at 09:00 Hydralazine HCl (Apresoline) 10 mg Q8HR PO Last administered on 11/04/16 05:44 ; Start 10/31/16 at 14:00 Enoxaparin Sodium (Lovenox Inj) 30 mg Q24H SQ Last administered on 11/03/16 13 :43; Start 11/01/16 at 14:00 Sodium Chloride 1,000 ml @ 75 mls/hr [id number] IV Last administered on 16:37; Start 11/01/16 at 16:00; Stop 11/01/16 at 17:40; Status DC Clindamycin HCl (Cleocin) 300 mg Q6HR PO Last administered on 11/04/16 05:44; Start 11/02/16 at 12:00; Stop 11/10/16 at 23:00 Enalaprilat (*VASOTEC INJ PERIprocedural Use ONLY) 1.25 mg STK-MED ONCE .ROUTE ; Start 11/02/16 at 15:48; Stop 11/02/16 at 15:49; Status DC Prednisone (Deltasone) 40 mg DAILY PO Last administered on 11/03/16t 13:49; Start 11/03/16 at 12:15 Urinary Catheter: No Vascular Central Line Catheter: No A/P Problem List: (1) Diabetic foot infection ICD Code: E11.69 - Type 2 diabetes mellitus with other specified complication; L08.9 - Local infection of the skin and subcutaneous tissue, unspecified Status: Acute (2) Cellulitis ICD Code: L03.90 - Cellulitis, unspecified (3) Diabetic neuropathy ICD Code: E11.40 - Type 2 diabetes mellitus with diabetic neuropathy, unspecified (4) HTN (hypertension) ICD Code: I10 - Essential (primary) hypertension (5) Diabetes type 2, controlled ICD Code: E11.9 - Type 2 diabetes mellitus without complications (6) Osteomyelitis of right foot ICD Code: M86.9 - Osteomyelitis, unspecified Assessment and Plan Update in medical management 10/31/16 //Right-sided venous stasis edema. neg US for DVT. improving edema with Home wraps and diuretic. //Hypertension. I have stopped both the lisinopril and HCTZ due to pt's worsening Cr. Switched him to amlodipine and hydralazine. Continue to monitor clsely. //Right foot osteomyelitis. s/p right 4,5 digit amputation and 4,5 metatarsal resection w rotational skin plasty pod-2. Management per podiatry. ID following , on clindamycin ORALLY NOW //Acute renal failure: creatinine up to 4.04 RENAL CONSULTED- MEDICATIONS ADJUSTED, lisinopril and HCTZ stopped. Renal u/s neg. We'll hold off on discharge until it trends down CTA w runoff w no significant aortoiliac inflow disease or large vessel runoff disease. Pt wishes to go home w home health. CM aware. PT following, recommends bariatric wheelchair, already ordered. awaiting final recs from ID non WB right foot. Awaiting final culture results Path results reviewed. 66 year old male with type 2 diabetes and severe peripheral neuropathy, presenting with worsening cellulitis or the right foot, on antibiotics. //Right Foot Cellulitis //Right Foot diabetic foot infection (overlying fifth metatarsal), possible // osteomyelitis of the fifth metatarsal as per MRI MEDS ADJUSTED BY ID Probiotic Podiatry following. DM2 //Diabetic Neuropathy Good control at baseline per patient Follow blood sugars Insulin Sliding Scale Diabetic Diet Check A1c=6.3 //Diabetic Neuropathy Contributory Follow clinically Interval outpatient podiatry visits recommended //HTN Continue baseline treatments Follow BP Adjust if needed //Constipation. Resolved after laxatives. Continue laxatives //DVT Prophylaxis Lovenox Consult nephrology due to worsening renal function AM LABS- ACTUALLY WENT UP Discharge Planning awaiting final recs from ID and for creatinine to go back to baseline. A.m. labs await renal function return AM LABS STARTED ON STEROIDS PER RENAL Erasto Torres DO Nov 04, 2016 10:40
[2016-11-04] MEDS: predniSONE 20 MG TAB PO SCH (11:11)
[2016-11-04] MEDS: MULTIVITAMIN TAB PO SCH (11:12)
--- NOTE | 2016-11-04 11:42 | HHI.NPPN ---
Subjective General Problems: Edema Renal Failure: Acute Interval History Sitting up in a chair. Feels better, edema improved. (Jessie Yung) Review of Systems General Constitutional: Fatigue (Jessie Yung) Cardiovascular Cardiac: Edema (Jessie Yung) Objective Data Data Vital Signs Date Time Temp Pulse Resp B/P (MAP) Pulse Ox O2 Delivery O2 Flow Rate FiO2 11/04/16 08:00 96.1 76 18 142/65 (90) 95 11/04/16 00:00 97.8 81 17 139/77 (97) 94 11/03/16 20:00 98.1 90 17 162/78 (106) 93 11/03/16 16:00 98.9 69 18 123/64 (83) 94 11/03/16 12:00 99.0 75 18 132/67 (88) 96 (Jessie Yung) -: 11/04/16 0517 11/04/16 0517 Imaging Last Impressions Renal Ultrasound 10/30/16 0000 Signed Impressions: Service Date/Time: Sunday, October 30, 2016 14:01 - CONCLUSION: Negative examination. Manjit Calloway MD Lower Extremity Ultrasound 10/25/16 0000 Signed Impressions: Service Date/Time: Tuesday, October 25, 2016 16:01 - CONCLUSION: No evidence of DVT.. Eugene Estrada MD Tumor Localization 10/22/16 0000 Signed Impressions: Service Date/Time: October 12:42 - CONCLUSION: Findings are suspicious for osteomyelitis involving the distal portions of the fourth and fifth distal metatarsal bones of the right foot in addition to fifth proximal phalanx. K. Brandan Lyles MD Aorta w/Runoff CTA 10/22/16 0000 Signed Impressions: Service Date/Time: October 11:06 - CONCLUSION: No significant aortoiliac inflow disease or large vessel runoff disease. Distal and small vessel disease not excludable, Faheem Lane MD Foot X-Ray 10/21/16 0000 Signed Impressions: Service Date/Time: Friday, October 21, 2016 11:27 - CONCLUSION: 1. Soft tissue swelling. 2. Degenerative changes. No acute fracture or cortical irregularity to suggest osteomyelitis Shawn Parkinson MD Foot MRI 10/21/16 0000 Signed Impressions: Service Date/Time: Friday, October 21, 2016 15:51 - CONCLUSION: Abnormal appearance to the 5th digit and surrounding soft tissues with absence of contrast enhancement with sharp demarcation suggesting that this there is devascularized. Robby Ceron MD (Dilshad,[employer]ie B[employer]) Physical Exam General Appearance: Well Developed, No Acute Distress, Comfortable (Dilshad,Jessie B[employer]) Ears & Nose Ears & Nose Exam: Tympanic Membranes Normal (Dilshad,Jessie B[employer]) Neck Neck Exam: Neck Supple (Dilshad,[employer]ie B[employer]) Pulmonary Resp Exam: Clear Bilaterally, Breath Sounds Equal (Dilshad,[employer]ie B[employer]) Cardiology CV Exam: Regular, Normal Sinus Rhythm (Dilshad,Jessie B[employer]) Gastrointestinal/Abdomen GI Exam: Soft, Non-Tender, Bowel Sounds Present (Dilshad,Jessie B[employer]) Musculoskeletal MS Exam: Joints Intact, Normal Tone, Good Strength (Dilshad,Jessie B[employer]) Integumentary Skin Exam: Warm, Dry (Dilshad,Jessie B[employer]) Extremeties Extremities Exam: No Edema, Pedal Pulses Palpable, Pitting Edema, Dependent Edema (Dilshad,Jessie B[employer]) Neurologic Neuro Exam: Alert, Awake (Dilshad,Jessie B[employer]) Assessment/Plan Problem List: (1) Acute kidney injury ICD Codes: N17.9 - Acute kidney failure, unspecified Plan: Normal renal function at baseline [place] due to Vancomycin induced nephrotoxicity or possibly allergic interstitial nephritis due to Vancomycin (or another agent) Started on steroids. Will need to continue taper at discharge. Renal function is improving Edema improved, avoid IVF. Avoid any other known nephrotoxic agents. Antibiotics reviewed and appropriate. Monitor urine output and renal function. Serological work up is in progress. (2) Diabetes type 2, controlled ICD Codes: E11.9 - Type 2 diabetes mellitus without complications Plan: .Continue Insulin coverage, maintain blood glucose between 140 and 180. Avoid Metformin (3) Osteomyelitis of right foot ICD Codes: M86.9 - Osteomyelitis, unspecified Plan: s/p surgery as mentioned above. ID following, on Levaquin and PO clindamycin. Culture results reviewed. (4) Anemia ICD Codes: D64.9 - Anemia, unspecified Plan: Hb acceptable, continue to monitor. Anemia is multifactorial, due to blood loss as well chronic illness. (Jessie Yung) Plan patient was seen and examined. Agree with above assessment and plan. (Kyle Fontaine MD) Jessie Yung Nov 04, 2016 11:42 Kyle Fontaine MD Nov 05, 2016 08:19
[2016-11-04 12:00] VITALS: BP 142/72; PULSE 71; RESP 18; TEMP 97; O2SAT 97
[2016-11-04 12:14] LABS: HEPATITIS B SURFACE ANTIBODY 0 mIU/mL
--- NOTE | 2016-11-04 13:38 | HHI.IDPN ---
Subjective Subjective Remarks Patient is a 66-year-old male, senna to the hospital for further evaluation of a wound on his right foot. He apparently sustained a wound on the lateral aspect of his right foot about 3 weeks ago when his foot hit a concrete. He did not see any bleeding, and he put some topical antibiotic and The foot covered. He started noticing redness and some drainage, so the first when to walk-in clinic about 3 days prior to admission. He was given Bactroban ointment and clindamycin. Patient stated that it was not improving, and looked like it was getting worse, so he went to another walk-in clinic on the day of admission and from there he was advised to go to the emergency room for further evaluation and treatment. He denies any fever or chills or sweats. He has not had any GI, respiratory, or any urinary complaints. Patient states that he does have neuropathy. He has fairly good control on his blood sugars. He does not follow with any podiatry. Since admission patient has not had any fever. He had podiatry and vascular surgery evaluate him. There was no evidence of significant vascular disease. He has evidence of possible osteomyelitis on the fourth and fifth metatarsal of his right foot. Patient underwent surgery today and had amputation of his fourth and fifth digit as well as metatarsal. He had a culture done by the microbiology professor at bedside when he first presented, and it has MSSA, Pasteurella, anaerobic gram-positive cocci, and some skin briana. His initial WBC was 13,000, and it's down to normal. Sedimentation rate is 81. C- reactive protein is 17. Infectious disease consultation has been requested to make treatment recommendations. Notes reviewed D/W Dr Fontaine No new complaints Noted less swelling hands and LE Temps ok Tolerating Abx Started on prednisone yesterday Creatinine lower today Good UO Antibiotics Clindamycin Levaquin Lines PIV Past Medical History Diabetes mellitus type 2 Diabetic neuropathy Hypertension Allergies: Coded Allergies: No Known Allergies (Unverified , 10/21/16) Objective . Vital Signs Date Time Temp Pulse Resp B/P (MAP) Pulse Ox O2 Delivery O2 Flow Rate FiO2 11/04/16 12:00 97.0 71 18 142/72 (95) 97 11/04/16 08:00 96.1 76 18 142/65 (90) 95 11/04/16 00:00 97.8 81 17 139/77 (97) 94 11/03/16 20:00 98.1 90 17 162/78 (106) 93 11/03/16 16:00 98.9 69 18 123/64 (83) 94 . Laboratory Tests Test 11/03/16 07:15 11/04/16 05:17 White Blood Count 8.1 TH/MM3 9.1 TH/MM3 Red Blood Count 3.85 MIL/MM3 3.85 MIL/MM3 Hemoglobin 11.7 GM/DL 11.6 GM/DL Hematocrit 34.8 % 34.9 % Mean Corpuscular Volume 90.4 FL 90.8 FL Mean Corpuscular Hemoglobin 30.3 PG 30.1 PG Mean Corpuscular Hemoglobin Concent 33.6 % 33.2 % Red Cell Distribution Width 13.6 % 13.6 % Platelet Count 295 TH/MM3 309 TH/MM3 Mean Platelet Volume 7.0 FL 7.3 FL Neutrophils (%) (Auto) 73.1 % 88.4 % Lymphocytes (%) (Auto) 8.7 % 6.9 % Monocytes (%) (Auto) 9.8 % 4.0 % Eosinophils (%) (Auto) 8.0 % 0.3 % Basophils (%) (Auto) 0.4 % 0.4 % Neutrophils # (Auto) 5.9 TH/MM3 8.0 TH/MM3 Lymphocytes # (Auto) 0.7 TH/MM3 0.6 TH/MM3 Monocytes # (Auto) 0.8 TH/MM3 0.4 TH/MM3 Eosinophils # (Auto) 0.6 TH/MM3 0.0 TH/MM3 Basophils # (Auto) 0.0 TH/MM3 0.0 TH/MM3 CBC Comment DIFF FINAL DIFF FINAL Differential Comment Laboratory Tests Test 11/03/16 07:15 11/04/16 05:17 Blood Urea Nitrogen 33 MG/DL 38 MG/DL Creatinine 4.23 MG/DL 4.04 MG/DL Random Glucose 115 MG/DL 157 MG/DL Total Protein 7.0 GM/DL 6.7 GM/DL Albumin 2.2 GM/DL 2.5 GM/DL Calcium Level 8.2 MG/DL 8.3 MG/DL Phosphorus Level 3.6 MG/DL 3.6 MG/DL Magnesium Level 2.0 MG/DL 2.1 MG/DL Alkaline Phosphatase 71 U/L Aspartate Amino Transf (AST/SGOT) 19 U/L Alanine Aminotransferase (ALT/SGPT) 29 U/L Total Bilirubin 0.5 MG/DL Sodium Level 137 MEQ/L 134 MEQ/L Potassium Level 4.2 MEQ/L 4.5 MEQ/L Chloride Level 104 MEQ/L 102 MEQ/L Carbon Dioxide Level 23.6 MEQ/L 22.7 MEQ/L Anion Gap 9 MEQ/L 9 MEQ/L Estimat Glomerular Filtration Rate 14 ML/MIN 15 ML/MIN Imaging Last Impressions Lower Extremity Ultrasound 10/25/16 0000 Signed Impressions: Service Date/Time: Tuesday, October 25, 2016 16:01 - CONCLUSION: No evidence of DVT.. Eugene Estrada MD Tumor Localization 10/22/16 0000 Signed Impressions: Service Date/Time: October 12:42 - CONCLUSION: Findings are suspicious for osteomyelitis involving the distal portions of the fourth and fifth distal metatarsal bones of the right foot in addition to fifth proximal phalanx. Torri Lyles MD Aorta w/Runoff CTA 10/22/16 0000 Signed Impressions: Service Date/Time: October 11:06 - CONCLUSION: No significant aortoiliac inflow disease or large vessel runoff disease. Distal and small vessel disease not excludable, Faheem Lane MD Foot X-Ray 10/21/16 0000 Signed Impressions: Service Date/Time: Friday, October 21, 2016 11:27 - CONCLUSION: 1. Soft tissue swelling. 2. Degenerative changes. No acute fracture or cortical irregularity to suggest osteomyelitis Shawn Parkinson MD Foot MRI 10/21/16 0000 Signed Impressions: Service Date/Time: Friday, October 21, 2016 15:51 - CONCLUSION: Abnormal appearance to the 5th digit and surrounding soft tissues with absence of contrast enhancement with sharp demarcation suggesting that this there is devascularized. Robby Ceron MD Physical Exam GENERAL: awake and alert, not in respiratory distress. SKIN: Warm and dry. No generalized rash, no ecchymoses and no evidence of embolic lesions. EYES: [place] conjunctiva. No petechia or hemorrhage. No scleral icterus. No injection or drainage. EARS, NOSE AND THROAT: Nose without bleeding or purulent nasal discharge. No sinus tenderness. Mucous membranes pink and moist. NECK: Trachea midline. Supple and not tender, no meningeal signs CARDIOVASCULAR: Regular rate and rhythm. No murmurs, rubs or gallops heard RESPIRATORY: Clear to auscultation. Breath sounds equal bilaterally. No rales , wheezing or rhonchi ABDOMEN: Soft, non-tender, nondistended. Bowel sounds present and normoactive. No guarding. No rebound. No organomegaly. EXTREMITIES: No clubbing, cyanosis. No calf tenderness. Well perfused and warm. R foot - intact dry dressing. Improving edema on his R leg. NEUROLOGICAL: Non-focal. PSYCHIATRIC: Normal affect, calm and cooperative. LINE: No evidence of infection Assessment & Plan Remarks IMPRESSION Diabetic foot infection, R, with osteo 4th and 5th digits and MT, S/P amputation - initial C/S with MSSA, pasteurella, anaerobic GPC and skin briana - intraop C/S pending DM Obesity Renal insufficiency, worsening since admission - ?due to contrast, ?Abx - ?allergic nephritis; creatinine lower today, possibly due to prednisone started yesterday RECOMMENDATION Continue Levaquin Continue Clinda po Complete Rx with oral antibiotics Patient requested me to call his Rx to [facility] pharmacy - and I did phone in Rx today Patient stable for D/C from ID standpoint D/W Dr Fontaine - possibly D/C tomorrow Pau Ortiz MD Nov 04, 2016 13:38
[2016-11-04 14:08] LABS: ANA SCREEN NEG (NEG)
[2016-11-04] MEDS: ENOXAPARIN SODIUM 30 MG/0.3 ML SYRINGE SQ SCH (14:56)
[2016-11-04 16:00] VITALS: BP 146/70; PULSE 80; RESP 18; TEMP 97.8; O2SAT 92
[2016-11-04 20:37] VITALS: BP 150/81; PULSE 94; RESP 20; TEMP 97.6; O2SAT 96
[2016-11-04 22:20] LABS: ALBUMIN SPE 3.1 GM/DL (3.50-5.00); ALPHA 1 GLOBULIN 0.34 GM/DL (0.11-0.29); ALPHA 2 GLOBULIN 1.04 GM/DL (0.22-1.00); BETA GLOBULINS (SPE) 0.83 GM/DL (0.53-1.03)
[2016-11-05 00:37] VITALS: BP 126/60; PULSE 72; RESP 18; TEMP 96; O2SAT 96
[2016-11-05 04:51] LABS: AUTOMATED NEUTROPHIL # 9.4 TH/MM3 (1.8-7.7); BASOPHIL # 0.1 TH/MM3 (0-0.2); BASOPHIL % 0.7 % (0.0-2.0); EOSINOPHIL # 0.1 TH/MM3 (0-0.4); EOSINOPHIL % 0.8 % (0.0-4.0); HEMATOCRIT 34.9 % (39.0-51.0); HEMO FLAGS DIFF FINAL; LYMPH % 8.5 % (9.0-44.0); MEAN CELL VOLUME 89.5 FL (80.0-100.0); MEAN CORPUSCULAR HEMOGLOBIN 29.9 PG (27.0-34.0); MEAN CORPUSCULAR HGB CONC 33.4 % (32.0-36.0); MONO % 5.8 % (0.0-8.0); NEUT % 84.2 % (16.0-70.0); PLATELET COUNT 325 TH/MM3 (150-450); RED BLOOD COUNT 3.89 MIL/MM3 (4.50-5.90); RED CELL DISTRIBUTION WIDTH 13.7 % (11.6-17.2); WHITE BLOOD COUNT 11.2 TH/MM3 (4.0-11.0)
[2016-11-05 05:11] LABS: ANION GAP 9 MEQ/L (5-15); AST (GOT) 18 U/L (15-37); BICARBONATE 24.1 MEQ/L (21.0-32.0); BLOOD UREA NITROGEN 42 MG/DL (7-18); CHLORIDE 103 MEQ/L (98-107); GLOMERULAR FILTRATION RATE 17 ML/MIN (>89); MAGNESIUM 2.2 MG/DL (1.5-2.5); POTASSIUM 4.6 MEQ/L (3.5-5.1); SODIUM (NA) 136 MEQ/L (136-145)
[2016-11-05 05:12] LABS: ALT (GPT) 35 U/L (12-78)
[2016-11-05 05:15] LABS: ALKALINE PHOSPHATASE 70 U/L (45-117); TOTAL BILIRUBIN ADULT 0.4 MG/DL (0.2-1.0)
[2016-11-05] MEDS: hydrALAZINE HCL 10 MG TAB PO SCH (05:47)
[2016-11-05] MEDS: CLINDAMYCIN 150 MG CAP PO SCH (05:47)
[2016-11-05 05:49] VITALS: BP 161/73; PULSE 72
[2016-11-05 08:00] VITALS: BP 148/61; PULSE 60; RESP 17; TEMP 96.7; O2SAT 95
[2016-11-05] MEDS: INSULIN ASPART SUPPLEMENTAL SCALE SQ SCH (08:00)
--- NOTE | 2016-11-05 08:28 | HHI.NPPN ---
Subjective General Problems: Edema Renal Failure: Acute Interval History patient is sitting on a chair. Renal function has improved. He is non oliguric. Review of Systems General Constitutional: Fatigue Cardiovascular Cardiac: Edema Objective Data Data Vital Signs Date Time Temp Pulse Resp B/P (MAP) Pulse Ox O2 Delivery O2 Flow Rate FiO2 11/05/16 05:49 72 161/73 (102) 11/05/16 00:37 96.0 72 18 126/60 (82) 96 11/04/16 20:37 97.6 94 20 150/81 (104) 96 11/04/16 16:00 97.8 80 18 146/70 (95) 92 11/04/16 12:00 97.0 71 18 142/72 (95) 97 -: 11/05/16 0352 11/05/16 0352 Physical Exam General Appearance: Well Developed, No Acute Distress, Comfortable Ears & Nose Ears & Nose Exam: Tympanic Membranes Normal Neck Neck Exam: Neck Supple Pulmonary Resp Exam: Clear Bilaterally, Breath Sounds Equal Cardiology CV Exam: Regular, Normal Sinus Rhythm Gastrointestinal/Abdomen GI Exam: Soft, Non-Tender, Bowel Sounds Present Musculoskeletal MS Exam: Joints Intact, Normal Tone, Good Strength Integumentary Skin Exam: Warm, Dry Extremeties Extremities Exam: No Edema, Pedal Pulses Palpable, Pitting Edema, Dependent Edema Extremeties Remarks dressing over the right foot. Neurologic Neuro Exam: Alert, Awake Assessment/Plan Problem List: (1) Acute kidney injury ICD Codes: N17.9 - Acute kidney failure, unspecified Plan: [place] due to Vancomycin induced nephrotoxicity or possibly allergic interstitial nephritis due to Vancomycin (or another agent) Started on steroids. He will need a tapering dose of Prednisone at the time of discharge. Decrease Prednisone by 10 mg every 3rd day until gone. He can be discharged today, with outpatient followup with me. Renal function is improving Avoid any other known nephrotoxic agents. Monitor urine output and renal function. (2) Diabetes type 2, controlled ICD Codes: E11.9 - Type 2 diabetes mellitus without complications Plan: .Continue Insulin coverage, maintain blood glucose between 140 and 180. Avoid Metformin (3) Osteomyelitis of right foot ICD Codes: M86.9 - Osteomyelitis, unspecified Plan: s/p surgery as mentioned above. ID following, on Levaquin and PO clindamycin. Culture results reviewed. (4) Anemia ICD Codes: D64.9 - Anemia, unspecified Plan: Hb acceptable, continue to monitor. Anemia is multifactorial, due to blood loss as well chronic illness. Kyle Fontaine MD Nov 05, 2016 08:27
[2016-11-05] MEDS: DOCUSATE SODIUM 50 MG/SENNA 8.6 MG TAB PO SCH (09:00)
[2016-11-05] MEDS: SODIUM CHLORIDE 0.9% FLUSH 10 ML FLUSH IV FLUSH SCH (09:00)
[2016-11-05] MEDS ORDERED: predniSONE 10 MG TAB PO SCH (09:00)
[2016-11-05] MEDS: PRAVASTATIN SOD 20 MG TAB PO SCH (09:00)
[2016-11-05] MEDS: MULTIVITAMIN TAB PO SCH (09:40)
[2016-11-05] MEDS: LEVOFLOXACIN 750 MG TAB PO SCH (09:41)
[2016-11-05 12:00] VITALS: BP 151/74; PULSE 68; RESP 17; TEMP 98.1; O2SAT 96
[2016-11-05] MEDS ORDERED: LEVA750T9 PO (13:00)
[2016-11-05] MEDS ORDERED: CLIN1CAP6 PO (13:00)
[2016-11-05] MEDS ORDERED: AMLO10 PO (13:31)
[2016-11-05] MEDS ORDERED: HYDR-3798 PO (13:31)
[2016-11-05] MEDS ORDERED: PRED10 PO (13:33)
--- NOTE | 2016-11-05 13:40 | HHI.DS ---
Discharge Summary Admission Date Oct 21, 2016 at 12:44 Discharge Date: Nov 05, 2016 Admitting Diagnosis diabetic foot infection (1) Diabetic foot infection ICD Code: E11.69 - Type 2 diabetes mellitus with other specified complication; L08.9 - Local infection of the skin and subcutaneous tissue, unspecified Status: Acute (2) Cellulitis ICD Code: L03.90 - Cellulitis, unspecified (3) Diabetic neuropathy ICD Code: E11.40 - Type 2 diabetes mellitus with diabetic neuropathy, unspecified (4) HTN (hypertension) ICD Code: I10 - Essential (primary) hypertension (5) Diabetes type 2, controlled ICD Code: E11.9 - Type 2 diabetes mellitus without complications (6) Osteomyelitis of right foot ICD Code: M86.9 - Osteomyelitis, unspecified Procedures YESSENIA EWING DPM DATE OF SURGERY: 10/28/2016 PREOPERATIVE DIAGNOSIS Diabetic foot infection with osteomyelitis right fourth and fifth digit and fourth and fifth metatarsals. POSTOPERATIVE DIAGNOSIS Diabetic foot infection with osteomyelitis right fourth and fifth digit and fourth and fifth metatarsals. PROCEDURE PERFORMED Right fourth, fifth digit amputation, fourth and fifth metatarsal resection, incision and drainage, debridement with a rotational skin plasty plantar foot ulcer greater than 10 cm. FINDINGS See operative dictation. SPECIMENS Fourth and fifth digit and fourth and fifth metatarsals to check for proximal margin for osteomyelitis, this is for pathology, deep wound cultures were taken, one of the bone fourth and fifth metatarsal and one of the deep soft tissue. Brief History - From Admission Mr. Mahmood is a 66-year-old male. He reports after mowing his yard in the past week he noticed he developed a right lateral foot wound. He says he never noticed any blood but he did notice discharge. He became concerned Wednesday when the foot developed redness and he went to an outpatient clinic. They gave him a topical antibiotic ointment as well as clindamycin. Despite these treatments his foot worsened this morning and he visited another urgent care and at that time they recommended he come to the hospital. She denies any fevers, chills, or odor. She does not regularly follow with an outpatient agronomy location manager but he does have diabetic neuropathy. He has had problems with ulcerations of his lower distal extremities in the past. A white blood cell count is present. Sepsis criteria are not present. X-ray shows soft tissue swelling without evidence of osteo-myelitis. CBC/BMP: 11/05/16 0352 11/05/16 0352 Significant Findings Laboratory Tests Test 11/03/16 07:15 11/04/16 05:17 11/05/16 03:52 Red Blood Count 3.85 MIL/MM3 (4.50-5.90) 3.85 MIL/MM3 (4.50-5.90) 3.89 MIL/MM3 (4.50-5.90) Hemoglobin 11.7 GM/DL (13.0-17.0) 11.6 GM/DL (13.0-17.0) 11.7 GM/DL (13.0-17.0) Hematocrit 34.8 % (39.0-51.0) 34.9 % (39.0-51.0) 34.9 % (39.0-51.0) Neutrophils (%) (Auto) 73.1 % (16.0-70.0) 88.4 % (16.0-70.0) 84.2 % (16.0-70.0) Lymphocytes (%) (Auto) 8.7 % (9.0-44.0) 6.9 % (9.0-44.0) 8.5 % (9.0-44.0) Monocytes (%) (Auto) 9.8 % (0.0-8.0) Eosinophils (%) (Auto) 8.0 % (0.0-4.0) Lymphocytes # (Auto) 0.7 TH/MM3 (1.0-4.8) 0.6 TH/MM3 (1.0-4.8) Eosinophils # (Auto) 0.6 TH/MM3 (0-0.4) Blood Urea Nitrogen 33 MG/DL (7-18) 38 MG/DL (7-18) 42 MG/DL (7-18) Creatinine 4.23 MG/DL (0.60-1.30) 4.04 MG/DL (0.60-1.30) 3.56 MG/DL (0.60-1.30) Random Glucose 115 MG/DL (74-106) 157 MG/DL (74-106) 165 MG/DL (74-106) Albumin 2.2 GM/DL (3.4-5.0) 2.5 GM/DL (3.4-5.0) 2.5 GM/DL (3.4-5.0) Calcium Level 8.2 MG/DL (8.5-10.1) 8.3 MG/DL (8.5-10.1) 8.4 MG/DL (8.5-10.1) Estimat Glomerular Filtration Rate 14 ML/MIN (>89) 15 ML/MIN (>89) 17 ML/MIN (>89) Neutrophils # (Auto) 8.0 TH/MM3 (1.8-7.7) 9.4 TH/MM3 (1.8-7.7) Sodium Level 134 MEQ/L (136-145) Albumin/Globulin Ratio 0.86 (1.39-2.23) Qovjo-6-Yvbsuaogj 0.34 GM/DL (0.11-0.29) Hibnl-4-Ughlhhvwh 1.04 GM/DL (0.22-1.00) Hepatitis C Antibody REACTIVE (NEGATIVE) White Blood Count 11.2 TH/MM3 (4.0-11.0) Imaging Last Impressions Renal Ultrasound 10/30/16 0000 Signed Impressions: Service Date/Time: Sunday, October 30, 2016 14:01 - CONCLUSION: Negative examination. Manjit Calloway MD Lower Extremity Ultrasound 10/25/16 0000 Signed Impressions: Service Date/Time: Tuesday, October 25, 2016 16:01 - CONCLUSION: No evidence of DVT.. Eugene Estrada MD Tumor Localization 10/22/16 0000 Signed Impressions: Service Date/Time: October 12:42 - CONCLUSION: Findings are suspicious for osteomyelitis involving the distal portions of the fourth and fifth distal metatarsal bones of the right foot in addition to fifth proximal phalanx. Torri Lyles MD Aorta w/Runoff CTA 10/22/16 0000 Signed Impressions: Service Date/Time: October 11:06 - CONCLUSION: No significant aortoiliac inflow disease or large vessel runoff disease. Distal and small vessel disease not excludable, Faheem Lane MD Foot X-Ray 10/21/16 0000 Signed Impressions: Service Date/Time: Friday, October 21, 2016 11:27 - CONCLUSION: 1. Soft tissue swelling. 2. Degenerative changes. No acute fracture or cortical irregularity to suggest osteomyelitis Shawn Parkinson MD Foot MRI 10/21/16 0000 Signed Impressions: Service Date/Time: Friday, October 21, 2016 15:51 - CONCLUSION: Abnormal appearance to the 5th digit and surrounding soft tissues with absence of contrast enhancement with sharp demarcation suggesting that this there is devascularized. Robby Ceron MD PE at Discharge GENERAL: Awake alert and oriented talkative and cooperative NECK: Trachea midline. CARDIOVASCULAR: Regular rate and rhythm. RESPIRATORY: No accessory muscle use. Clear to auscultation. Breath sounds equal bilaterally. GASTROINTESTINAL: Abdomen soft, non-tender, nondistended. MUSCULOSKELETAL: Extremities without positive +1 lower extremity edema. No obvious deformities. Chronic skin changes to the right lower extremity RIGHT FOOT DRESSED NEUROLOGICAL: Awake and alert. No obvious cranial nerve deficits. Motor grossly within normal limits. PSYCHIATRIC: Appropriate mood and affect; insight and judgment normal. Pt update on day of discharge pt has no complaints, ready to go home today. no pain/sob/n/v Hospital Course //Hypertension. I have stopped both the lisinopril and HCTZ due to pt's worsening Cr. stable on amlodipine and hydralazine. Continue to monitor closely. //Right foot osteomyelitis. s/p right 4,5 digit amputation and 4,5 metatarsal resection w rotational skin plasty. f/u w podiatry as an outpatient. ID has called in Abx to pt's pharmacy per his recs. //Acute renal failure: slowing trending down. nephrology following and has cleared pt for discharge. recommends steroid taper decrease dose by 10mg every 3 days. currently at 30mg CTA w runoff w no significant aortoiliac inflow disease or large vessel runoff disease. Pt wishes to go home w home health. CM aware. PT following, recommends bariatric wheelchair, already ordered. non WB right foot. Path results reviewed. Pt Condition on Discharge: Stable Discharge Disposition: Discharge Home Discharge Time: > 30 minutes Discharge Instructions DIET: Follow Instructions for: Renal Failure Diet Activities you can perform: See Additionl Instruction Other Activity Instructions: elevate foot, no ice, strict non weight bearing forefoot, heel transfer ok to bedside commode. Follow up Referrals: Nephrology - 1 Week PCP Follow-up - 1 Week Podiatry - 1 Week New Medications: Clindamycin (Clindamycin) 300 Mg Cap 300 MG PO Q6H for Infection, #20 CAP 0 Refills Levofloxacin (Levaquin) 750 Mg Tablet 750 MG PO EVERY OTHER DAY for Infection, #3 TAB 0 Refills Walker with Front Wheels (Walker with Front Wheels) 1 Mis Mis EA .ROUTE DIRECTED, #1 0 Refills Amlodipine (Norvasc) 10 Mg Tab 10 MG PO DAILY for 30 Days, #30 TAB Hydralazine HCl (Hydralazine HCl) 10 Mg Tablet 10 MG PO Q8HR for 30 Days Prednisone (Prednisone) 10 Mg Tab 30 MG PO DAILY for 9 Days, #27 TAB 30mg po daily x2 more days then 20mg daily x 3 days then 10mg daily x 3 days then stop Continued Medications: Lovastatin (Lovastatin) 20 Mg Tab 20 MG PO DAILY for Cholesterol Management, #30 TAB 0 Refills Multiple Vitamin (Multi-Vitamin Daily) 1 Tab Tab 1 TAB PO DAILY for Nutritional Supplement, TAB 0 Refills Multiple Vitamins W/ Minerals (Ocuvite) 1 Tab 1 TAB PO DAILY for Nutritional Supplement, TAB 0 Refills Nateglinide (Nateglinide) 120 Mg Tab 120 MG PO BID for Blood Sugar Management, #90 TAB 0 Refills Discontinued Medications: Lisinopril (Lisinopril) 10 Mg Tab 10 MG PO DAILY, #30 TAB 0 Refills Metformin (Metformin) 500 Mg Tab 500 MG PO BIDPC for Blood Sugar Management, #60 TAB 0 Refills With meals Mupirocin Topical (Bactroban Topical) 22 Gm Cream 1 APPLIC TOPICAL TID for Mgmt Bacterial Infection, #1 TUBE 0 Refills Brigitte Pemberton MD Nov 05, 2016 13:40
[2016-11-06 03:52] LABS: MYELOPEROXIDASE LESS THAN 1.0 AI (<1.0); PROTEINASE-3 LESS THAN 1.0 AI (<1.0)
== END 2016-11-05 14:25 | disposition home health service (06) | DRG 617 ==
LOC: PHED 10:36 → PHEDA 12:44 → PH3A 14:43 → N07A 10-22 21:23
PROVIDERS: ADMIT Family Medicine; ATTEND Hospitalist
PROC: 0HDMXZZ Extraction of Right Foot Skin, External Approach (ICD-10-PCS; 2016-10-21)
PROC: 0HXMXZZ Transfer Right Foot Skin, External Approach (ICD-10-PCS; 2016-10-28)
PROC: 0J9Q0ZZ Drainage of Right Foot Subcutaneous Tissue and Fascia, Open Approach (ICD-10-PCS; 2016-10-28)
PROC: 0Y6X0Z3 Detachment at Right 5th Toe, Low, Open Approach (ICD-10-PCS; 2016-10-28)
PROC: 0QBN0ZZ Excision of Right Metatarsal, Open Approach (ICD-10-PCS; 2016-10-28)
PROC: 0JBQ0ZZ Excision of Right Foot Subcutaneous Tissue and Fascia, Open Approach (ICD-10-PCS; 2016-10-28)
PROC: 0Y6V0Z3 Detachment at Right 4th Toe, Low, Open Approach (ICD-10-PCS; principal; 2016-10-28 07:25)
DX: E11.69 Type 2 diabetes mellitus with other specified complication (principal); M86.9 Osteomyelitis, unspecified; N17.9 Acute kidney failure, unspecified; A28.0 Pasteurellosis; D72.1 Eosinophilia; E11.51 Type 2 diabetes mellitus with diabetic peripheral angiopathy without gangrene; L03.115 Cellulitis of right lower limb; Z68.41 Body mass index [BMI] 40.0-44.9, adult; E11.42 Type 2 diabetes mellitus with diabetic polyneuropathy; E11.621 Type 2 diabetes mellitus with foot ulcer; B95.61 Methicillin susceptible Staphylococcus aureus infection as the cause of diseases classified elsewhere; B96.89 Other specified bacterial agents as the cause of diseases classified elsewhere; I10 Essential (primary) hypertension; L97.519 Non-pressure chronic ulcer of other part of right foot with unspecified severity; R60.0 Localized edema; K59.00 Constipation, unspecified; I87.8 Other specified disorders of veins; E11.628 Type 2 diabetes mellitus with other skin complications; E66.01 Morbid (severe) obesity due to excess calories; D50.0 Iron deficiency anemia secondary to blood loss (chronic); D63.8 Anemia in other chronic diseases classified elsewhere; E78.00 Pure hypercholesterolemia, unspecified; Z79.84 Long term (current) use of oral hypoglycemic drugs
CPT/HCPCS: 73630; 73720; 75635; 76775; 76937; 78807; 78999; 80048; 80053; 80069; 80202; 81001; 82565; 82948; 83036; 83605; 83735; 84100; 84165; 84439; 84443; 85025; 85652; 86021; 86038; 86140; 86160; 86317; 86403; 86803; 87040; 87070; 87077; 87102; 87147; 87185; 87186; 87205; 87206; 87340; 88304; 88305; 88307; 88311; 93005; 93971; A9569; A9579; J0295; J1650; J2250; J2405; J2543; J3010; J3370; J7030; J7040; J7512; Q9967

== ENCOUNTER → 2017-06-01 | Day surgery (SDC) | payer MEDICARE, OTHER ==
[~2017-06-01] MED LIST: AMLO10 PO; ASPI81CH6 CHEW; BUPIVACAINE HCL PF 0.25% 10 ML VIAL ONE; BUPIVACAINE HCL PF 0.25% 30 ML VIAL ONE; CLIN300C5 PO; HYDR-3798 PO; LACTATED RINGER'S 1000 ML INJ 1,000 ML ONE; LEVA750T9 PO; LOVA20TA PO; MULT-65 PO; NATE120T PO; OCUVTAB PO; PRED10 PO; WALKER WHEELS/F1 MIS; ceFAZolin 2 GM PREMIX 50 ML ONE
--- NOTE | 2017-06-01 15:38 | MP ---
cc: Jayro Ortega DPM DATE OF OPERATION: 06/01/2017 PREOPERATIVE DIAGNOSIS: Right foot ulcer, fifth metatarsal exostosis, possible osteomyelitis. POSTOPERATIVE DIAGNOSIS: Right foot ulcer, fifth metatarsal exostosis, possible osteomyelitis. PROCEDURE PERFORMED: 1. Incision of bone cortex, right foot. 2. Partial excision fifth metatarsal. 3. Ulcer ellipse, debridement and closure approximately 3 cm. SPECIMEN: Bone and soft tissue for pathology including bone margin and 1 bone specimen for microbial analysis. TOURNIQUET TIME: Esmarch was used the majority of the case, approximately 25 minutes. INJECTABLES: None. ESTIMATED BLOOD LOSS: Less than 30 mL. DISPOSITION: Discharge home when he is stable per same day surgery criteria. JUSTIFICATION OF PROCEDURE: A pleasant 66-year-old male who has a history of a severe right foot infection. He subsequently underwent incision, drainage and debridement but developed a nonhealing ulcer at the plantar aspect. X-ray showed hard bony cortex. Culture showed normal briana. We devised a plan to move forward with removal of most of the remaining fifth metatarsal to prevent a plantar prominence, likely causing reactive forces and the ulcer not to heal. We also will send bone for specimen in case there are any signs of bone infection. The patient was educated on the plantar incision to ellipse and close the ulcer, the possibility of wound opening due to poor compliance, neuropathy, poor healing, need for more surgery at a later date. No guarantees were given, or implied regarding the outcome. PROCEDURE IN DETAIL: Under mild sedation, the patient was brought into the operating room, placed on the operating table in the supine position. Following the induction of general anesthesia, the right lower extremity was scrubbed, prepped and draped in the usual aseptic fashion. The foot was elevated and exsanguinated and an Esmarch remained around the ankle to serve as a tourniquet. An elliptical incision was made at the plantar aspect of the fifth metatarsal area. This was a hyperkeratotic fistula going down to deep dermis and likely probing to periosteum. This was a full thickness incision down to deep fatty scar tissue. This was then passed off the field for pathological analysis. Further sharp and blunt dissection was carried down to the periosteal margin of the plantar fifth metatarsal. An incision was made. Subperiosteal dissection took place. Approximately 2.5 cm of the remaining metatarsal was removed. A rongeur was used at the most proximal portion of the margin of fifth metatarsal for pathological analysis and microbial analysis. The wound was flushed with copious amounts of normal saline. The bone was noted to be hard. It was planed, so it was a smooth contour on the weightbearing surface. Bovie and ligation of venous structures took place as deemed necessary. The wound was flushed with copious amounts of normal saline. Deep closure took place utilizing Vicryl. The skin was closed utilizing nylon. Upon relieving the Esmarch tourniquet, there was a prompt hyperemic response to all digits. The patient only has 3 due to previous amputation. A bulky bandage applied. The patient then positioned within a forefoot offloading shoe. The patient is to heel weight-bear only. The patient will followup within 3-5 days. He will elevate. No ice. MARY Rosas , 03:19 PM , 03:38 PM
== END | disposition home or self-care (01) ==
LOC: ESDC 11:34
PROVIDERS: ATTEND Podiatrist Foot & Ankle Surgery
DX: L97.519 Non-pressure chronic ulcer of other part of right foot with unspecified severity (principal); M86.171 Other acute osteomyelitis, right ankle and foot; B95.7 Other staphylococcus as the cause of diseases classified elsewhere
CPT/HCPCS: 01480; 28005; 28110; 87015; 87070; 87116; 87176; 87205; 87206; 88304; 88305; 88311; J0690; J3010; J7120; 86403; 87077; 87186; 88307